=== PATIENT | female | born 1980 | race African-American/Black ===

== ENCOUNTER 2020-06-19 13:08 | Emergency (ER) | payer OTHER ==
[2020-06-19] MEDS ORDERED: SODIUM CHLORIDE 1,000 ML IV STA (13:18)
[2020-06-19] MEDS ORDERED: ACETAMINOPHEN 1000 MG/100 ML VIAL (NON FORMULARY) IVPB ONE (13:18)
--- NOTE | 2020-06-19 13:18 | PDOC ---
Rapid Medical Evaluation Time Seen by Provider: 06/19/20 13:13 Medical Evaluation: Allergies Allergy/AdvReac Type Severity Reaction Status Date / Time chlorpromazine Allergy Verified 06/19/20 13:13 [From Thorazine] haloperidol [From Haldol] Allergy Verified 06/19/20 13:13 06/19/20 13:13 I have performed a brief in-person evaluation of this patient. CC: vaginal bleeding- ? PE: protuberant abdomen. Orders: labs, urine Patient will proceed to ED for further evaluation. Discharge Disposition - Diagnosis Vaginal bleeding - Referrals - Patient Instructions - Post Discharge Activity
[2020-06-19 13:19] VITALS: BMI 26.6
[2020-06-19] MEDS ORDERED: ACETAMINOPHEN INJECTION 100 ML IVPB ONE (13:32)
--- NOTE | 2020-06-19 14:04 | PDOC ---
History of Present Illness - General Chief Complaint: Vaginal Bleeding Stated Complaint: VAGINAL BLEEDING Time Seen by Provider: 06/19/20 13:13 - History of Present Illness Initial Comments: 06/19/20 13:59 40 y/o 2 abortions believes she is hx of ectopic dx with PTSD 06/19/20 14:00 C/o vaginal bleeding and pain and protubernet abdomen she was told she was by GI doc Past History - Medical History Allergies/Adverse Reactions: Allergies Allergy/AdvReac Type Severity Reaction Status Date / Time chlorpromazine Allergy Verified 06/19/20 13:13 [From Thorazine] haloperidol [From Haldol] Allergy Verified 06/19/20 13:13 olanzapine Allergy Verified 06/19/20 13:13 Home Medications: Ambulatory Orders NK [No Known Home Medication] 06/19/20 - Reproductive History Is Patient Now?: Yes (unsure) - Psycho-Social/Smoking History Smoking History: Unknown if ever smoked - Substance Abuse Hx (Audit-C & DAST Scrn) How often the patient has a drink containing alcohol: Never Score: In Men: 4 or > Positive; In Women: 3 or > Positive: 0 Screen Result (Pos requires Nsg. Audit-10AR): Negative In the last yr the pt used illegal drug/Rx for NonMed reason: No Score: Yes response is considered Positive: 0 Screen Result (Positive result requires Nsg. DAST-10): Negative Review of Systems - Review of Systems Constitutional: No: Fever *Physical Exam - Vital Signs Last Vital Signs Temp Pulse Resp BP Pulse Ox 100 H 18 111/50 L 98 06/19/20 13:15 06/19/20 13:15 06/19/20 13:15 06/19/20 13:15 - Physical Exam General Appearance: Yes: Nourished HEENT: positive: Symmetrical Neck: positive: Supple Respiratory/Chest: negative: Respiratory Distress Gastrointestinal/Abdominal: positive: Soft. negative: Tender Musculoskeletal: positive: Normal Inspection Extremity: positive: Normal Inspection ED Treatment Course - LABORATORY CBC & Chemistry Diagram: 06/19/20 14:10 06/19/20 14:10 Medical Decision Making - Medical Decision Making 06/19/20 15:12 Patient states she is she disagrees with the results. I will send her back to Dr. Manzanares who is her estate planning attorney for further evaluation 06/19/20 15:15 Patient speech is pressured, flight of ideas. She states she basically needs a letter for further work-up that is required in order to go back to her halfway which I am happy to write her Discharge - Discharge Information Problems reviewed: Yes Clinical Impression/Diagnosis: Vaginal bleeding Condition: Stable Disposition: HOME - Admission No - Follow up/Referral Referrals: Jody Layton [Primary Care Provider] - Dio Manzanares MD [Staff Physician] - Bonita Aguirre MD [Staff Physician] - - Patient Discharge Instructions Additional Instructions: Follow-up with both your estate planning attorney as well as obstetrics and gynecology for further evaluation and treatment options. You must follow-up with both [facility] without fail within the next 1 to 2 days. Return to the emergency room for worsening symptoms. - Post Discharge Activity Work/Back to School Note: Back to Work
[2020-06-19 14:24] LABS: BASO % 0.5 % (0-2.0); EOS % 1.2 % (0-4.5); HEMATOCRIT 37.6 % (32.4-45.2); HEMOGLOBIN 12.4 GM/dL (10.7-15.3); LYMPH % 17.7 % (8-40); MCH 28.4 pg (25.7-33.7); MCHC 32.9 g/dl (32.0-36.0); MEAN CELL VOLUME 86.3 fl (80-96); MEAN PLT VOLUME 8.8 fl (7.5-11.1); MONO % 8.4 % (3.8-10.2); NEUT % 72.2 % (42.8-82.8); PLATELET COUNT 305 K/MM3 (134-434); RBC 4.35 M/mm3 (3.60-5.2); RDW 12.3 % (11.6-15.6); WHITE BLOOD COUNT 12.4 K/mm3 (4.0-10.0)
[2020-06-19 14:34] LABS: URINE APPEARANCE CLEAR; URINE BILIRUBIN NEGATIVE (NEGATIVE); URINE COLOR YELLOW; URINE GLUCOSE (UA) NEGATIVE (NEGATIVE); URINE KETONE NEGATIVE (NEGATIVE); URINE LEUK ESTERASE NEGATIVE (NEGATIVE); URINE NITRITE NEGATIVE (NEGATIVE); URINE PROTEIN NEGATIVE (NEGATIVE); URINE UROBILINOGEN 0.2 mg/dL (0.2-1.0)
[2020-06-19 14:36] LABS: INR 1.13 (0.83-1.09); PROTHROMBIN TIME (PATIENT) 13.4 SEC (9.7-13.0)
[2020-06-19 14:38] LABS: ACTIVATED PTT 32.4 SECONDS (25.2-36.5)
[2020-06-19 14:45] LABS: ALBUMIN 3.9 g/dl (3.4-5.0); ALK PHOS 77 U/L (45-117); ANION GAP 9 MMOL/L (8-16); BILIRUBIN,TOTAL 0.2 mg/dL (0.2-1); BLOOD UREA NITROGEN 25.3 mg/dL (7-18); CALCIUM 9.3 mg/dL (8.5-10.1); CHLORIDE 104 mmol/L (98-107); CO2 27 mmol/L (21-32); COCAINE, UR NEGATIVE ng/ml (CUTOFF=300); CREATININE 0.8 mg/dL (0.55-1.3); GLUCOSE,RANDOM 103 mg/dL (74-106); LIPASE 246 U/L (73-393); METHADONE, UR NEGATIVE ng/ml (CUTOFF=300); OPIATES, URI NEGATIVE ng/ml (CUTOFF=300); PHENCYCLIDINE,URINE NEGATIVE ng/ml (CUTOFF=25); POTASSIUM 4.2 mmol/L (3.5-5.1); SGOT/AST 25 U/L (15-37); SGPT/ALT 37 U/L (13-61); SODIUM 140 mmol/L (136-145); TOT PROT 8.5 g/dl (6.4-8.2); URINE AMPHETAMINES NEGATIVE ng/ml (CUTOFF=500); URINE BARBITURATES NEGATIVE ng/ml (CUTOFF=200); URINE BENZODIAZEPINES NEGATIVE ng/ml (CUTOFF=200)
[2020-06-19 15:27] VITALS: BP 118/54; PULSE 86; TEMP 98
== END 2020-06-19 15:27 | disposition home or self-care (01) ==
LOC: JER 13:08
PROC: 3E0333Z Introduction of Anti-inflammatory into Peripheral Vein, Percutaneous Approach (ICD-10-PCS; principal; 2020-06-19)
PROC: 3E0337Z Introduction of Electrolytic and Water Balance Substance into Peripheral Vein, Percutaneous Approach (ICD-10-PCS; 2020-06-19)
DX: N93.9 Abnormal uterine and vaginal bleeding, unspecified (principal)
CPT/HCPCS: 36415; 80053; 80307; 81003; 83690; 84443; 84702; 84703; 85025; 85610; 85730; 87086; 99284-25; J0131

== ENCOUNTER 2020-07-11 14:37 | Emergency (ER) | payer OTHER ==
[2020-07-11] MEDS ORDERED: ACETAMINOPHEN 500 MG TABLET (FP) PO ONE (14:50)
--- NOTE | 2020-07-11 14:50 | PDOC ---
Rapid Medical Evaluation Time Seen by Provider: 07/11/20 14:47 Medical Evaluation: Allergies Allergy/AdvReac Type Severity Reaction Status Date / Time chlorpromazine Allergy Verified 06/19/20 13:13 [From Thorazine] haloperidol [From Haldol] Allergy Verified 06/19/20 13:13 olanzapine Allergy Verified 06/19/20 13:13 07/11/20 14:47 I have performed a brief in-person evaluation of this patient. CC: vaginal pain with thick white discharge PE: deferred Orders: urine, tylenol Patient will proceed to ED for further evaluation. Discharge Disposition - Diagnosis Vaginal pain - Referrals - Patient Instructions - Post Discharge Activity
[2020-07-11 14:52] VITALS: BP 119/70; PULSE 68; TEMP 96.7; BMI 27.6
[2020-07-11] MEDS ORDERED: ACETAMINOPHEN 500 MG TABLET (FP) ONE (15:47)
--- NOTE | 2020-07-11 16:22 | PDOC ---
History of Present Illness - General Chief Complaint: Vaginal Sxs Stated Complaint: VAGINAL PAIN Time Seen by Provider: 07/11/20 14:47 History Source: Patient Exam Limitations: No Limitations - History of Present Illness Initial Comments: 07/11/20 16:20 40-year-old female history of "psych issues" currently follows up with a psychiatrist denies taking any medication, , 2 termination, lives in a woman's custodial. Presents requesting test. Believes she is , evaluated here June 19 for "vaginal issues". However patient denies being sexually active, reports minimal vaginal discomfort. Denies vaginal itching, vaginal discharge, vaginal bleeding. LMP 1 month ago. Upon speaking with patient she is fixated on "linea nigra" is evidence that she is . Denies cough, shortness of breath, fever, chills, back pain, urinary complaint or any other symptoms. Reports she has an appointment scheduled with GI July 17, 2020. Missed an appointment with OB June 27, currently working on rescheduling. ROS: as above PE: GENERAL: well-appearing, NAD HEAD: NCAT EYES: Pupils equal, round and reactive to light, sclera anicteric, conjunctiva clear ENT: pharynx: no erythema, no exudate, uvula midline NECK: supple CHEST: nontender RESP: clear, no w/r/r CARDIO: rrr, no m/g/r ABD: +BS, soft, nontender, protuberant pelvic: declines at this time BACK: no midline spinal ttp, no CVAT EXTREMITIES: Normal range of motion, no edema NEUROLOGICAL: Normal speech, normal gait SKIN: Warm, Dry Is this a multiple visit Asthma Patient?: No Past History - Medical History Allergies/Adverse Reactions: Allergies Allergy/AdvReac Type Severity Reaction Status Date / Time chlorpromazine Allergy Verified 07/11/20 14:52 [From Thorazine] haloperidol [From Haldol] Allergy Verified 07/11/20 14:52 olanzapine Allergy Verified 07/11/20 14:52 Home Medications: Ambulatory Orders Cephalexin Monohydrate [Keflex -] 500 mg PO BID 10 Days #20 capsule 07/11/20 COPD: No Psychiatric Problems: Yes - Reproductive History Is Patient Now?: No (#): 8 Para: 6 Spontaneous : 2 - Immunization History Immunization Up to Date: No - Psycho-Social/Smoking History Smoking History: Never smoked Have you smoked in the past 12 months: No Information on smoking cessation initiated: No - Substance Abuse Hx (Audit-C & DAST Scrn) How often the patient has a drink containing alcohol: Never Score: In Men: 4 or > Positive; In Women: 3 or > Positive: 0 Screen Result (Pos requires Nsg. Audit-10AR): Negative In the last yr the pt used illegal drug/Rx for NonMed reason: No Score: Yes response is considered Positive: 0 Screen Result (Positive result requires Nsg. DAST-10): Negative *Physical Exam - Vital Signs Last Vital Signs Temp Pulse Resp BP Pulse Ox 96.7 F L 68 18 119/70 100 07/11/20 14:50 07/11/20 14:50 07/11/20 14:50 07/11/20 14:50 07/11/20 14:50 ED Treatment Course - Medications Given in the ED: ED Medications Discontinued Medications Generic Name Dose Route Start Last Admin Trade Name Didi PRN Reason Stop Dose Admin Acetaminophen 975 mg 07/11/20 14:50 07/11/20 15:48 Tylenol - PO 07/11/20 14:51 975 mg ONCE ONE Administration Medical Decision Making - Medical Decision Making 07/11/20 16:22 40-year-old female history of "psych issues" currently follows up with a psychiatrist denies taking any medication, , 2 termination, lives in a woman's custodial. Presents requesting test. Believes she is , evaluated here June 19 for "vaginal issues". However patient denies being sexually active, reports minimal vaginal discomfort. Denies vaginal itching, vaginal discharge, vaginal bleeding. LMP 1 month ago. Upon speaking with patient she is fixated on "linea nigra" is evidence that she is . Denies cough, shortness of breath, fever, chills, back pain, urinary complaint or any other symptoms. Reports she has an appointment scheduled with GI July 17, 2020. Missed an appointment with OB June 27, currently working on rescheduling. 07/11/20 17:40 Discussed UA results with patient, will treat for mild UTI Also discussed negative test with patient who feels our results are incorrect Copy of urine and urine results provided to patient Note to return to custodial also provided Stable for discharge Discharge - Discharge Information Problems reviewed: Yes Clinical Impression/Diagnosis: Urinary tract infection Qualifiers: Urinary tract infection type: acute cystitis Hematuria presence: without hematuria Qualified Code(s): N30.00 - Acute cystitis without hematuria Condition: Stable Disposition: HOME - Admission No - Follow up/Referral Referrals: Jody Layton [Primary Care Provider] - - Patient Discharge Instructions Additional Instructions: Take cephalexin 500 mg twice a day for 10 days Follow-up with [facility] as soon as you are able to Keep your appointment with GI scheduled for July 17, 2020 - Post Discharge Activity
[2020-07-11 16:48] LABS: HCG,QUALITATIVE URINE Negative
[2020-07-11 17:33] LABS: EPI CELLS >36 /uL (0-25.1); HYALINE CASTS 1 /uL (0-3.1); URINE APPEARANCE CLEAR; URINE BACTERIA 2865 /uL (0-1359); URINE BILIRUBIN NEGATIVE (NEGATIVE); URINE COLOR YELLOW; URINE GLUCOSE (UA) NEGATIVE (NEGATIVE); URINE KETONE NEGATIVE (NEGATIVE); URINE LEUK ESTERASE TRACE (NEGATIVE); URINE NITRITE NEGATIVE (NEGATIVE); URINE PROTEIN NEGATIVE (NEGATIVE); URINE RBC 7 /uL (0-23.9); URINE UROBILINOGEN 0.2 mg/dL (0.2-1.0); URINE WBC 183 /uL (0-25.8)
--- OUTSIDE RECORDS SUMMARY | 2020-07-11 19:47 | XMS ---
:1980 Author Organization [facility] Care Team Providers Name Role Phone BEN GOLD Unavailable Unavailable MD Chaka Gentile MD Unavailable [phone] MD Chaka Gentile MD Unavailable [phone] JASON WELLER Unavailable Unavailable Ringstad, Ila Unavailable Unavailable Ringstad, Ila Unavailable Unavailable Ringstad, Ila Unavailable Unavailable Ringstad, Ila Unavailable Unavailable Ringstad, Ila Unavailable Unavailable Ringstad, Ila Unavailable Unavailable Ringstad, Ila Unavailable Unavailable Ringstad, Ila Unavailable Unavailable Ringstad, Ila Unavailable Unavailable Ringstad, Ila Unavailable Unavailable Ringstad, Ila Unavailable Unavailable ED STAFF PHYSICIANGILBERT Unavailable Unavailable Agnes Shirley Unavailable [email or web address] Agnes Shirley Unavailable [email or web address] Agnes Shirley Unavailable [email or web address] Agnes Shirley Unavailable [email or web address] NIALL DHALIWAL Unavailable Unavailable ROBE Busby Unavailable Unavailable JIMMY ARRIOLA Unavailable Unavailable Robbie Knox Unavailable [phone] Robbie Knox Unavailable + Aszalos, Jody Nereida Unavailable Unavailable Aszalos, Nereida Unavailable Unavailable Aszalos, Nereida Unavailable Unavailable Aszalos, Nereida Unavailable Unavailable Aszalos, Nereida Unavailable Unavailable Aszalos, Nereida Unavailable Unavailable Aszalos, Nereida Unavailable Unavailable Aszalos, Nereida Unavailable Unavailable Aszalos, Nereida Unavailable Unavailable Darer Unavailable [phone] Nlam Unavailable [phone] Nlam Unavailable + BETSY MORALES Unavailable Unavailable [facility] Unavailable Unavailable Woodson Unavailable Unavailable Woodson Unavailable Unavailable Woodson Unavailable Unavailable Woodson Unavailable Unavailable Woodson Unavailable Unavailable Woodson Unavailable Unavailable Woodson Unavailable Unavailable Woodson Unavailable Unavailable Woodson Unavailable Unavailable Woodson Unavailable Unavailable [facility] Unavailable Unavailable Coloka-Kump, DO Unavailable Unavailable Coloka-Kump, DO Unavailable Unavailable Coloka-Kump, DO Unavailable Unavailable Coloka-Kump, DO Unavailable Unavailable Coloka-Kump, DO Unavailable Unavailable Coloka-Kump, DO Unavailable Unavailable Coloka-Kump, DO Unavailable Unavailable Coloka-Kump, DO Unavailable Unavailable Coloka-Kump, DO Unavailable Unavailable Coloka-Kump, DO Unavailable Unavailable Coloka-Kump, DO Unavailable Unavailable Coloka-Kump, DO Unavailable Unavailable Coloka-Kump, DO Unavailable Unavailable Coloka-Kump, DO Unavailable Unavailable Coloka-Kump, DO Unavailable Unavailable Coloka-Kump, DO Unavailable Unavailable Coloka-Kump, DO Unavailable Unavailable MD VENU Unavailable Unavailable Aszalos, Nereida Unavailable Unavailable Aszalos, Nereida Unavailable Unavailable Aszalos, Nereida Unavailable Unavailable Aszalos, Nereida Unavailable Unavailable Aszalos, Nereida Unavailable Unavailable Aszalos, Nereida Unavailable Unavailable Aszalos, Nereida Unavailable Unavailable Aszalos, Nereida Unavailable Unavailable Aszalos, Nereida Unavailable Unavailable Cass ALEMAN MD Unavailable [phone] Cass ALEMAN MD Unavailable [phone] Saadia Unavailable [phone] Saadia Unavailable [phone] Safo-Paulie Unavailable [phone] Safo-Paulie Unavailable [phone] Kathy ALEMAN MD Unavailable [phone] Kathy ALEMAN MD Unavailable [phone] Ringstad Unavailable Unavailable Ringstad Unavailable Unavailable Ringstad Unavailable Unavailable Ringstad Unavailable Unavailable Ringstad Unavailable Unavailable Ringstad Unavailable Unavailable Ringstad Unavailable Unavailable Ringstad Unavailable Unavailable Ringstad Unavailable Unavailable Ringstad Unavailable Unavailable Ringstad Unavailable Unavailable SHARAN STAHL Unavailable Unavailable LITZY SAMAYOA Unavailable Unavailable LANCELIXNAE Unavailable Unavailable KAI, SHERRIE Unavailable Unavailable Sicular Unavailable Unavailable ARPITA GOMEZ Unavailable Unavailable Amarga Unavailable Unavailable Amarga Unavailable Unavailable Jackson Unavailable [phone] Jackson Unavailable [phone] CHRISTY Busby Unavailable Unavailable Carol Villalba MD Unavailable Unavailable Carol Villalba MD Unavailable Unavailable Carol Villalba MD Unavailable Unavailable Carol Villalba MD Unavailable Unavailable Carol Villalba MD Unavailable Unavailable Carol Villalba MD Unavailable Unavailable Carol Villalba MD Unavailable Unavailable Carol Villalba MD Unavailable Unavailable Carol Villalba MD Unavailable Unavailable Carol Villalba MD Unavailable Unavailable Carol Villalba MD Unavailable Unavailable Carol Villalba MD Unavailable Unavailable Carol Villalba MD Unavailable Unavailable Carol Villalba MD Unavailable Unavailable Carol Villalba MD Unavailable Unavailable Veselinovic Unavailable [phone] Rodrigoovic Unavailable [phone] Chris Unavailable [phone] Ralph Unavailable [phone] JESSICA ROJASA Unavailable Unavailable DAVION Liu Unavailable Unavailable JEFFREY HERNANDEZ Unavailable Unavailable MD ASAF Unavailable Unavailable Ekechukwu Unavailable [phone] Ekechukwu Unavailable [phone] Brittani ALEMAN MD Unavailable [phone] Brittani ALEMAN MD Unavailable [phone] KIRTI ARCHER Unavailable Unavailable EMERGENCY SERVICE, X Unavailable Unavailable RAE KRISHNAMURTHY Unavailable Unavailable Bottstefani Unavailable [phone] Bottrell Unavailable [phone] SAFO-PAULIE Unavailable Unavailable Re-disclosure Warning The records that you are about to access may contain information from federally- assisted alcohol or drug abuse programs. If such information is present, then the following federally mandated warning applies: This information has been disclosed to you from records protected by federal confidentiality rules (42 CFR part 2). The federal rules prohibit you from making any further disclosure of this information unless further disclosure is expressly permitted by the written consent of the person to whom it pertains or as otherwise permitted by 42 CFR part 2. A general authorization for the release of medical or other information is NOT sufficient for this purpose. The Federal rules restrict any use of the information to criminally investigate or prosecute any alcohol or drug abuse patient.The records that you are about to access may contain highly sensitive health information, the redisclosure of which is protected by Article 27-F of the [facility] Public Health law. If you continue you may haveaccess to information: Regarding HIV / AIDS; Provided by facilities licensed or operated by the [facility] Office of Mental Health; or Provided by the [facility] Office for People With Developmental Disabilities. If such information is present, then the following [facility] mandated warning applies: This information has been disclosed to you from confidential records which are protected by state law. State law prohibits you from making any further disclosure of this information without the specific written consent of the person to whom it pertains, or as otherwise permitted by law. Any unauthorized further disclosure in violation of state law may result in a fine or retirement sentence or both. A general authorization for the release of medical or other information is NOT sufficient authorization for further disclosure. Allergies and Adverse Reactions Type Description Substance Reaction Status Data Source(s ) Drug allergy Haldol Haldol Unknown Active [facility] Drug allergy Fluphenazine Fluphenazine [facility] Propensity to Propensity to Propensity to NEXTG EN ([facility] adverse adverse reactions adverse [facility] Medical reactions (disorder) reactions Center) (disorder) (disorder) Drug allergy Risperdal Risperdal Unknown Active [facility] Food allergy SHELLFISH Synonym(s): Localized Active [facility] swelling of skin Drug allergy Thorazine Thorazine Weal Active [facility] Family History Family Member Family Member Family Member Date of Description Data Source(s) Name Gender Status Status Unknown Male Problem 11/03/2019 [facility] 12:00:00 AM Manuel Medic al EST Center) Encounters Encounter Providers Location Date Indications Data Source(s ) Outpatient 06/28/2020 [facility] 01:26:00 Medical Center PM EDT Outpatient 06/28/2020 [facility] 12:00:00 Medical Center AM EDT Unlisted 06/13/2020 [facility] (Ment al evaluation and 05:00:00 Health management PM EDT [facility]) Outpatient Attender: JEANNETTE Rudolph 06/07/2020 [facility] tim MACHADO 04:22:00 Medical Rashmi LEIdmitter: PM EDT JEANNETTE Busby Attender: [facility] 06/07/2020 [facility] ( [facility] 04[facility]22[facility] Manuel Medic al PM EDT - Center) 06/07/2020 04:22:00 PM EDT Unlisted 05/30/2020 [facility] (Ment al evaluation and 04:00:00 Health management AM EDT [facility]) Outpatient Attender: JEANNETTE Rudolph 05/23/2020 [facility] 11:56:00 Medical Rashmi r KAdmitter: AM EDT JEANNETTE MACHADO KReferrer: JEANNETTE Busby [facility] 11:56:00 Manuel Medic al AM EDT - Center) 05/23/2020 11:56:00 AM EDT Outpatient Attender: MHAW9 05/13/2020 I ([facility] 12:30:58 Health Care EDT Collaborative) Patient admitted. Outpatient Attender: Edda Rudolph 05/12/2020 [facility] 11:50:00 AM EDT Medical Center DOAdmitter: Edda Ames DOReferrer: Edda Ames DO Attender: [facility] 05/12/2020 YEIMY ( [facility] 11:50:00 AM EDT Gamaliel Jackson MD 05/12/2020 Medical 11:50:00 AM EDT Center) Outpatient 05/12/2020 [facility] 10:59:00 AM EDT Medical C enter Outpatient 05/12/2020 [facility] 12:00:00 AM EDT Medical C enter Attender: MD Mabry [facility] 05/10/2020 [place] ([facility] 02:42:00 PM EDT - Manuel 05/10/2020 Medical 02:42:00 PM EDT Center) Outpatient Attender: JEANNETTE Rudolph 05/03/2020 [facility] 03:34:00 PM EDT Medical Center KAdmitter: JEANNETTE Busby Attender: [facility] 05/03/2020 [facility]EXT[facility] ( [facility] 03:34:00 PM EDT - Jagjit s 05/03/2020 Medical 03:34:00 PM EDT Center) Outpatient 05/01/2020 [facility] 10:11:00 AM EDT Medical C enter Outpatient 05/01/2020 [facility] 12:00:00 AM EDT Medical C enter Attender: [facility] 04/19/2020 CHOLO N ([facility] [place] 05:11:00 PM EDT - Manuel 04/19/2020 Medical 05:11:00 PM EDT Center) Outpatient 04/18/2020 [facility] 03:17:00 PM EDT Medical C enter Outpatient 04/18/2020 [facility] 12:00:00 AM EDT Medical C enter Attender: [facility] 04/17/2020 [facility] ([facility] 10:30:00 AM EDT - Manuel 04/17/2020 Medical 10:30:00 AM EDT Center) Outpatient Attender: JEANNETTE Rudolph 04/05/2020 [facility] Yunior MACHADO 02:16:00 PM EDT Medical Center KAdmitter: JEANNETTE Busby Attender: [facility] 04/05/2020 [facility] ( [facility] 02:16:00 PM EDT - Jagjit s 04/05/2020 Medical 02:16:00 PM EDT Center) Attender: [facility] 02/17/2020 CHOLO Alfaro ([facility] ALE[facility] [place] 09:35:00 AM EDT - Manuel 02/17/2020 Medical 09:35:00 AM EDT Center) Outpatient 02/02/2020 [facility] 03:25:00 PM EDT Medical C enter Outpatient Attender: AGNES Rudolph 02/02/2020 [facility] DAVION ALARCON 10:58:00 AM EDT Medic al Center MAdmitter: AGNES ALARCON MReferrer: AGNES Liu OutpatientOFFICE/O Attender: Agnes 02/02/2020 [facility] [place] 10:58:00 AM EDT - J osep EST 02/02/2020 Medical 10:58:00 AM EDT Center) Outpatient 02/02/2020 [facility] 12:00:00 AM EDT Medical C [facility] 02[facility]01/2020 NEXTGE N ([facility] 10:35:00 AM EDT - [facility] 02/01/2020 Medical 10:35:00 AM EDT Center) Outpatient 01/28/2020 [facility] 01:17:00 PM EDT Medical C enter Attender: [facility] 01/28/2020 MAXWELL EPPS ([facility] 09:54:00 AM EDT - [facility] 01/28/2020 Medical 09:54:00 AM EDT Center) Outpatient 01/28/2020 [facility] 12:00:00 AM EDT Medical C enter Outpatient Attender: Emilia Rudolph 01/27/2020 [facility] VelezAdmitter: 01:38:00 PM EDT Medic al Center Emilia WoodsonReferrer: Emilia Woodson OutpatientOFFICE/O Attender: [facility] 01/27/2020 [facility] ([facility] VISIT, [facility] 01:38:00 PM EDT - J osep EST 01/27/2020 Medical 01:38:00 PM EDT Center) Outpatient 01/27/2020 [facility] 01:32:00 PM EDT Medical C enter Outpatient 01/27/2020 [facility] 12:00:00 AM EDT Medical C enter Outpatient 01/24/2020 [facility] 02:32:00 PM EDT Medical C enter Outpatient 01/24/2020 [facility] 12:00:00 AM EDT Medical C enter Outpatient Attender: MHAW9 01/20/2020 [facility] ([facility] 11:58:03 AM EDT [facility]) Patient admitted. Outpatient Attender: CNR9 [facility] 01/20/2020 11:58:00 AM [facility]SI ([facility] EDT Collaborative) Patient admitted. Emergency Attender: SUZI 01/18/2020 01:32:00 ABDOMINA LPAIN [facility] JAYAttender: PM EDT Health Care EMERGENCY SERVICE, Corpor ation XAdmitter: SUZIKIRTI ABDOMINALPAIN Outpatient 01/13/2020 [facility] 04:12:00 PM EDT Medical C enter Outpatient Attender: Emilia Rudolph 01/13/2020 [facility] VelezAdmitter: 02:32:00 PM EDT Medic al Center Emilia WoodsonReferrer: Emilia Woodson OutpatientOFFICE/OU Attender: [facility] 01/13/2020 [facility] ([facility], [facility] 02:32:00 PM EDT [facility] 01/13/2020 [place]) 02:32:00 PM EDT Outpatient 01/13/2020 [facility] 11:46:00 AM EDT Medical C enter Outpatient 01/13/2020 [facility] 12:00:00 AM EDT Medical C enter Outpatient 01/11/2020 [facility] 12:37:00 PM EDT Medical C enter Outpatient 01/11/2020 [facility] 12:00:00 AM EDT Medical C enter Attender: [facility] 01/04/2020 [facility] ([facility] 10:43:00 AM EDT [facility] 01/04/2020 [place]) 10:43:00 AM EDT Outpatient 01/03/2020 [facility] 04:21:00 PM EDT Medical C enter Outpatient 01/03/2020 [facility] 03:58:00 PM EDT Medical C enter Attender: Jaymie [facility] 01/03/2020 NEXT EN ([facility] 02:30:00 PM EDT [facility] 01/03/2020 [place]) 02:30:00 PM EDT Outpatient Attender: Emilia Rudolph 01/03/2020 [facility] VelezAdmitter: 01:09:00 PM EDT Medic al Center Emilia WoodsonReferrer: Emilia Woodson OutpatientOFFICE/OU Attender: [facility] 01/03/2020 [facility] ([facility] TPATIENT VISIT, EST [facility] Center 01:09:00 PM EDT [facility] 01/03/2020 [place]) 01:09:00 PM EDT Outpatient 01/03/2020 [facility] 12:00:00 AM EDT Medical C enter Attender: [facility] 01/01/2020 NEXTG EN ([facility] 09:33:00 AM EDT [facility] 01/01/2020 [place]) 09:33:00 AM EDT Outpatient 12/31/2019 [facility] 05:45:00 PM EDT Medical C enter Outpatient Attender: MHAW9 12/31/2019 [facility] ([facility] 05:41:16 AM EDT [facility]) Patient admitted. Outpatient 12/31/2019 [facility] 12:00:00 AM EDT Medical C enter Outpatient Attender: Edda Rudolph 12/30/2019 [facility] [place] 11:13:00 AM EDT Medical Center DOAdmitter: Edda Ames DOReferrer: Edda Cortez-Raphael DO OutpatientOFFICE/O Attender: [facility] 12/30/2019 [facility] 11:13:00 AM EDT [facility] EST 12/30/2019 Center) 11:13:00 AM EDT Outpatient 12/30/2019 [facility] 11:09:00 AM EDT Medical C enter Outpatient 12/30/2019 [facility] 12:00:00 AM EDT Medical C enter Outpatient Attender: Edda Rudolph 12/22/2019 [facility] [place] 11:16:00 AM EDT [facility] Center DOAdmitter: Edda Ames DOReferrer: Edda Ames DO OutpatientOFFICE/O Attender: [facility] 12/22/2019 NEX TGEN ([facility] VISIT, [facility] 11:16:00 AM EDT [facility] EST 12/22/2019 Center) 11:16:00 AM EDT Outpatient 12/22/2019 [facility] 11:00:00 AM EDT Medical C enter Outpatient 12/22/2019 [facility] 12:00:00 AM EDT Medical C enter Attender: [facility] 12/20/2019 [facility] ([facility] 11:45:00 [facility] [place] 12/20/2019 Center) 11:45:00 AM EDT Outpatient 12/09/2019 [facility] 01:45:00 PM EST Medical C enter Outpatient 12/09/2019 [facility] 12:00:00 AM EST Medical C enter [facility] 12[facility]2019 [facility] N ([facility] 11:39:00 AM [facility] 12/03/2019 Center) 11:39:00 AM EST Attender: [facility] 11/29/2019 [facility] 10:46:00 AM [facility] 11/29/2019 [place]) 10:46:00 AM EST Attender: [facility] 11/24/2019 [facility] ( [facility] 10:55:00 AM [facility] 11/24/2019 [place]) 10:55:00 AM EST [facility]: [facility] 11/22/2019 [facility] ([facility] 07:22:00 PM [facility] 11/22/2019 [place]) 07:22:00 PM EST Attender: [facility] 11/16/2019 [facility] ([facility] 02:17:00 PM [facility] 11/16/2019 [place]) 02:17:00 PM EST Outpatient Attender: 11/12/2019 [facility] vasiliy KRISHNAMURTHY, 06:00:00 AM [facility] Health [place] re GARYAdmitter: RAE Carter Attender: Leydi [facility] 11/09/2019 [facility] ( [facility] 12:21:00 PM [facility] - 11/09/2019 [place]) 12:21:00 PM EST Outpatient 11/08/2019 [facility] 05:27:00 PM EST Medical C enter Outpatient Attender: JASON Rudolph 11/08/2019 [place] ANTONIO 03:17:00 PM EST Medical C enter HINYAdmitter: JASON GOMEZReferrer: JASON GOMEZ OutpatientOFFICE/OUT Attender: José Antonio [facility] 11/08/2019 [facility] ([facility] VISIT, [facility] 03:17:00 PM [facility] - 11/08/2019 Center) 03:17:00 PM EST Outpatient 11/08/2019 [facility] 12:00:00 AM EST Medical C enter Outpatient Attender: Emilai Rudolph 11/03/2019 [facility] Yunior ephs VelezAdmitter: 01:15:00 PM EST Medic al Center Emilia VacaezReferrer: Emilia Woodson OutpatientWell Attender: MD Slaughter 11/03/2019 YEIMY ([facility] Kelsey, Merissa Odell MD [facility] 01:15:00 PM [facility]40-64[facility] Center - 11/03/2019 Center ) 01:15:00 PM EST Outpatient 11/03/2019 [facility] 10:20:00 AM EST Medical C enter Outpatient 11/03/2019 [facility] 12:00:00 AM EST Medical C enter Attender: MD Slaughter 11/02/2019 [facility] (Matt Odell MD [facility] 02:40:00 PM [facility] - 11/02/2019 Center) 02:40:00 PM EST Outpatient 10/27/2019 [facility] 02:10:00 PM EST Medical C enter Outpatient 10/27/2019 [facility] 12:00:00 AM EST Medical C enter Attender: MD Slaughter 10/26/2019 [facility] (Matt Odell MD [facility] 10:13:00 AM [facility] - 10/26/2019 Center) 10:13:00 AM EST Attender: Hilario Slaughter 10/25/2019 [facility] ( [facility] 02:30:00 PM [facility] - 10/25/2019 Center) 02:30:00 PM EST Attender: Family 10/22/2019 [facility] ([facility] 11:04:00 AM [facility] - 10/22/2019 Center) 11:04:00 AM EST Outpatient Attender: Emilia Rudolph 10/21/2019 [facility] VelezAdmitter: 02:59:00 PM EST Medic al Center Emilia WoodsonReferrer: Emilia Woodson OutpatientOFFICE/OUT Attender: Danial Family 10/21/2019 Angelina LUNSFORD ([facility] PATIENT VISIT, EST [facility] 02:59:00 PM EST [facility] 10/21[facility]2019 Center) 02:59:00 PM EST Outpatient 10/21/2019 [facility] 02:53:00 PM EST Medical C enter Outpatient 10/21/2019 [facility] 12:00:00 AM EST Medical C enter Outpatient Attender: JASON Rudolph 10/18/2019 [facility] Katharina drake ALVAREZ 03:18:00 PM EST Medical C enter JOHNNYAdmitter: JASON GOMEZReferrer: JASON GOMEZ OutpatientOFFICE/OUT Attender: MD Slaughter 10/18/2019 MIRELLA OREILLY ([facility] PATIENT VISIT, [facility] Chaka Gentile [facility] 03:18:00 PM [facility] - 10/18/2019 Center) 03:18:00 PM EST Outpatient Attender: MARY H 10/18/2019 [facility] JEFFREY 01:07:00 PM [facility] Center DANUTAAdmitter: MARY PRZEDOMINIQUE DANUTAReferrer: [facility] Outpatient 10/18/2019 [facility] 12:13:00 PM EST Medical C enter Outpatient 10/18/2019 [facility] 12:00:00 AM EST Medical C enter Outpatient 10/16/2019 [facility] 06:17:00 PM EST Medical C enter Outpatient 10/16/2019 [facility] 12:00:00 AM EST Medical C enter Attender: José Antonio [facility] 10/12/2019 [facility] ( [facility] 10:15:00 AM [facility] - 10/12/2019 [place]) 10:15:00 AM EST Outpatient Attender: Jody Rudolph 10/11/2019 [facility] Barbaradmitter: 03:46:00 PM EST [facility] Jody WinchesterlosReferrer: Jody Layton OutpatientOFFICE/OUT Attender: José Antonio [facility] 10/11/2019 [facility] ([facility] PATIENT VISIT, [facility] 03:46:00 PM [facility] - 10/11/2019 [place]) 03:46:00 PM EST Outpatient 10/11/2019 [facility] 03:44:00 PM EST Medical C enter Outpatient 10/11/2019 [facility] 12:00:00 AM EST Medical C enter Attender: José Antonio [facility] 10/07/2019 [facility] ( [facility] 02:08:00 PM [facility] - 10/07/2019 Center) 02:08:00 PM EST Outpatient Attender: JIMMY Rudolph 10/02/2019 [facility] 03:00:00 PM EST Medical C enter MINALAdmitter: JIMMY MANINDER MINALReferrer: JIMMY GUIDOAL OutpatientOFFICE/OUT Attender: José Antonio Family 10/02/2019 YEIMY ([facility] PATIENT VISIT, [facility] 03:00:00 PM [facility] - 10/02/2019 Center) 03:00:00 PM EST Outpatient 10/02/2019 [facility] 11:49:00 AM EST Medical C enter Outpatient 10/02/2019 [facility] 12:00:00 AM EST Medical C enter Outpatient 10/01/2019 [facility] 11:28:00 AM EST Medical C enter Outpatient 10/01/2019 [facility] 12:00:00 AM EST Medical C enter Outpatient Attender: 09/27/2019 [facility] [place] ANDREW, 02:57:00 PM [facility] Corporati dwight GarciaAttender: CLEMENTE GOLDdmitter: BETSY MORALES Emergency Attender: LITZY 09/24/2019 BACK PAIN YEAST [facility], 08:48:00 AM EST INFECTION Health Ca re TEENAAttender: Corporatio n EMERGENCY SERVICE, XAdmitter: LITZY [facility] MARYVALELITZY BACK PAIN YEAST INFECTION Outpatient Attender: KAI, 09/16/2019 09:34:00 [facility] AM [facility]OPHERAdmitter: Angelica QUINN [facility] Emergency Attender: SAQIB 09/10/2019 SORE THROAT [facility] RICHARDAttender: 08:24:00 AM EST a [facility] Care EMERGENCY SERVICE, Corpor ation XAdmitter: NAE CERRATO SORE THROAT Emergency Attender: SUZI 09/03/2019 REACTION TO FLU W [facility] EBENender: 09:03:00 AM EST SHOT [facility] Care EMERGENCY SERVICE, Corpor ation XAdmitter: KIRTI ARCHER REACTION TO FLU SHOT Unlisted evaluation 09/02/2019 NETS ART (Mental and management 10:00:00 PM EST Healt [facility] ) Emergency Attender: 08/20/2019 CONGESTION [facility] vasiliy STAHL, 08:59:00 AM [facility] Health C are ROBERTAdmitter: Corporati on SHARAN STAHL CONGESTION Unlisted 08/12/2019 NETSMART (Ment al evaluation and 05:00:00 AM EDT - [facility] management service 09/03/2019 of Rambo jett) 08:00:00 PM EST Attender: [facility] 08/02/2019 NEXT N ([facility] 04:55:00 PM EDT - [facility] 08/02/2019 Center) 04:55:00 PM EDT Emergency Admitter: H 07/31/2019 [facility] ROBE HIDALGO 02:11:00 PM EDT - edical Center K 07/31/2019 04:51:00 PM EDT Patient discharged. 07/31/2019 12:00:00 [facility] EDT Medical Center Attender: [facility] 06/26/2019 02:17:00 NEXTGEN ([facility] PM EDT - 06/26/2019 [facility] Medical 02:17:00 PM EDT Center) [facility] 10:16[facility]00 [facility] AM EDT - 06/24/2019 [facility] Medical 10:16:00 AM EDT Center) Emergency Attender: GILBERT ED H 06/23/2019 05:03:00 [facility] STAFF PM EDT - 06/23/2019 Medic al Center PHYSICIANAdmitter: 10:16:00 PM EDT [facility] ED STAFF PHYSICIAN Patient discharged. Attender: [facility] 06/12/2019 08:43:00 NEXTGEN ([facility] AM EDT - 06/12/2019 [facility] Medical 08:43:00 AM EDT Center) Emergency H 06/04/2019 09:58:00 [facility] EDT - 06/04/2019 Medic al Center 06:32:00 PM EDT Patient discharged. Attender: Hilario Mental 04/07/2019 NEXTGEN ( [facility] 02:45:00 PM EDT [facility] - 04/07/2019 Medical 02:45:00 PM EDT Center) OutpatientOFFICE/OU Attender: Jean Mental 03/26/2019 YEIMY ([facility], EST [facility] 03:52:00 PM EDT [facility] - 03/26/2019 Medical 03:52:00 PM EDT Center) Individual Attender: Hilario Mental 03/11/2019 NEXTGEN ( [facility] Psychotherapy ([facility] 03:18:00 PM EDT [facility] Clinic - 03/11/2019 Medical 03:18:00 PM EDT Center) Outpatient 03/05/2019 [facility] 12:36:00 PM EDT Medical C enter Outpatient Attender: H 03/05/2019 [facility] Ila 10:44:00 AM EDT Medical C enter SuritaMemodmitter: Ila Shahiderrer: Ila Neal OutpatientOFFICE/OU Attender: Ava Slaughter 03/05/2019 [facility] ([facility], [facility] 10:44:00 AM EDT [facility] - 03/05/2019 Medical 10:44:00 AM EDT Center) Outpatient 03/05/2019 [facility] 12:00:00 AM EDT Medical C enter Individual Attender: Hilario Mental 03/03/2019 [facility] ( [facility] Psychotherapy ([address] [place] [address] 02:07:00 PM EDT [facility] Clinic - 03/03/2019 Medical 02:07:00 PM EDT Center) Outpatient Attender: ARPITA Rudolph 02/18/2019 [facility] hilario JACOBAttender: 10:05:00 AM EDT Medic al Center ADA ARVIZUdmitter: ARPITA GOMEZ Attender: Ada Mental 02/18/2019 [facility] ([facility] 10:05:00 AM EDT [facility] - 02/18/2019 Medical 10:05:00 AM EDT Center) 02/18/2019 [facility] 12:00:00 AM EDT Medical C enter Inpatient Attender: LALO BARON-2S 01/08/2019 [facility] SASSAdmitter: ORA 09:43:00 AM EDT gagan ASAF - 02/08/2019 11:33:00 PM EDT Outpatient STV 01/08/2019 [facility] 09:30:00 AM EDT Hospital - 01/08/2019 09:39:00 AM EDT Emergency Attender: Megan 5T-EMERG 11/26/2018 NAUSEA [facility] - Mo unt Sicular 08:32:00 PM EST Elliot - 11/26/2018 Hospital 10:12:00 PM EST NAUSEA Attender: Jody [facility] 10/07/2018 01:54:00 NEXTGEN ([facility] PM EST - 10/07/2018 [facility] 01:54:00 PM EST Center) OutpatientOFF Attender: Riddhi [facility] 06/27/2018 11:03:00 NEXTGEN ([facility] ICE/OUTPATIEN [place] [facility] AM EDT - 06/27/2018 [facility] Medical T VISIT, EST 11:03:00 AM EDT Center) Immunizations Vaccine Date Status Description Data Source(s) As of June 1999, 12/30/2019 completed Hep B, adult, 3 dos e NEXTGEN ([facility] a 2-dose hepatitis B 12:00:00 AM [facility] Medical schedule for EDT Center) adolescents (11-15 year olds) was FDA approved for Merck's Recombivax HB adult formulation. Use code 43 for the 2-dose. This code should be used for any use of standard adult formulation of hepatitis B vaccine. Source: New Immunization Record New in 2011. 11/03/2019 12:00:00 completed Influenza, Injectable , NEXTGEN ([facility] IIV4 AM EST Quadrivalent [facility]) Source: New Immunization Record Td (adult) 11/03/2019 12:00:00 completed Td (adult) NEXTGEN ([facility] preservative free AM EST preservative free [facility]) Note: As per patient, received vaccine 10/2018, [facility] N.. ; Source: New Immunization Record As of June 1999, 10/11/2019 12:00:00 completed Hep B, adult , 3 NEXTGEN ([facility] a 2-dose hepatitis B AM EST dose [facility] Medical schedule for Center) adolescents (11-15 year olds) was FDA approved for Merck's Recombivax HB adult formulation. Use code 43 for the 2-dose. This code should be used for any use of standard adult formulation of hepatitis B vaccine. Source: New Immunization Record Medications Medication Brand Start Product Dose Route Administrative Pharmacy [facility] Indications Reaction Description Data Name Date Form Instructions Instructions Source(s) Omeprazole omepra 1.00 ORAL active take 1 N EXTGEN 40 MG zole 2020 {caps capsule by ([facility] Delayed 40 mg 12:00: ule} oral route Yunior ephs Release capsul 00 AM every day Medi shilpa Oral e,ward EDT before a Center) Capsule yed meal omeprazole releas 40 mg e capsule,del ayed release azelastine Azelas 01/02/ 2.00 NASAL complet spray 2 NEXTGEN 137 mcg petra 2020 spray ed spray by ([facility] (0.1 %) hydroc 12:00: intranasal Katharina sephs nasal spray hlorid 00 AM route 2 Me dical aerosol e EDT times every Cente r) 0.137 day in each MG/ACT nostril UAT Metere d Dose Nasal [place] halobetasol halobe apply by NEXTGEN propionate tasol 2020 ed topical (Latrell t 0.0005 propio 12:00: route every J osephs MG/MG nely 00 AM day a thin Medical Topical 0.05 % EST layer to the Ce nter) Ointment topica affected halobetasol l area(s) for propionate ointme 10 days 0.05 % nt topical ointment Ibuprofen Ibupro UNK complet Ibuprofe n [place] 600 MG Oral fen 2019 MG ed 600 MG Oral r County Tablet 600 MG 02:25: Tablet TAKE He alth Oral 09 PM 1 TABLET 3 Care Tablet EST TIMES DAILY Corpor atio NEEDED. n Dispense: 21 Supervising physician: Litzy Samayoa MD Methocarbam UNK complet Methocar bamo [place] ol 500 MG 2019 MG ed l 500 MG r Coun ty Oral Tabl 02:25: Oral Tablet H ealth 09 PM Take 2 Care EST tablets Corporatio three times n a day for the next 3 days. Dispense: 18 Supervising physician: Litzy Samayoa MD Monistat UNK complet Monistat [place] 1-Day 6.5 % 2019 MG ed 1-Day 6.5 % r County Vaginal O 02:01: Vaginal Healt h 33 PM Ointment Care EST INSERT 1 Corporatio APPLICATORFU n L INTRAVAGINAL LY AT BEDTIME. Dispense: 1 Supervising physician: Litzy Samayoa MD Fluconazole Flucon UNK active Flucon azole [place] (Difluca azole 2019 mg (Diflucan) r Co unty (Diflu 01:26: Tablet Oral Heal th ca 02 PM 150 mg PO Care EST Corporatio n Medication administered onsite Methocarbamol 09/24/2019 999 UNK completed Methocarbamol [place] 500 MG Oral 01:25:09 PM MG 500 MG Oral [facility] Tabl EST Tablet Take 2 Health Care tablets three Corpor ation times a day for the next 3 days. Dispense: 18 Supervising physician: Litzy Samayoa MD Ibuprofen 600 Ibuprofen 09/24/2019 999 UNK completed Ibuprofen 600 [place] MG Oral Tablet 600 MG 01:25:09 PM MG M G Oral Tablet [facility] Oral EST TAKE 1 TABLET 3 Heal Care Tablet TIMES DAILY Cor poration NEEDED. Dispense: 21 Supervising physician: Litzy Samayoa MD Monistat 1-Day 09/24/2019 999 UNK completed Monistat 1-Day [place] 6.5 % Vaginal 01:01:33 PM MG 6.5 % Vaginal [facility] EST Ointment INSERT [facility] 1 APPLICATORFUL Mg oration INTRAVAGINALLY AT BEDTIME. Dispense: 1 Supervising physician: Litzy Samayoa MD Robaxin Robaxin 09/24/2019 1000 UNK active Robax in [place] (Methocarba (Methocar 11:02:59 AM mg ( Methocarbamol) [facility] Oral 1000 mg PO [facility] Medication administered onsite Ibuprofen Ibuprofen 09/24/2019 600 UNK active I buprofen [place] (Motrin) O (Motrin) O 11:02:39 AM mg ( Motrin) [facility] Oral 600 mg Care PO Corporation Medication administered onsite Albuterol Albuterol 09/10/2019 1 puff UNK active Albuterol Betty Sulfate Sulfate 09:38:12 AM S adonay ALEMANI [facility] (90mcg/puff) [facility] Care Inh 1 puff Corporati on Inhaled Medication administered onsite Ibuprofen Ibuprofen 09/10/2019 600 UNK active I buprofen [place] (Motrin) O (Motrin) O 09:38:00 AM mg ( Motrin) [facility] [id number] mg Care PO Corporation Medication administered onsite Decadron Decadron 09/10/2019 10 UNK active Dec adron [place] (Dexametha (Dexametha 09:37:26 AM mg ( Dexamethasone) County EST Oral 10 mgPO [facility] Medication administered onsite Ibuprofen 600 Ibuprofen 08/20/2019 999 UNK completed Ibuprofen 600 [place] MG Oral Tablet 600 MG 09:36:35 AM MG M G Oral Tablet County Oral EST TAKE 1 TABLET Health Care Tablet EVERY 6 HOURS Mg oration NEEDED. Dispense: 20 12 Hour 08/20/2019 999 UNK completed 12 Nail r [place] Decongestant 09:36:35 AM MG Decon gestant [place] 0.05 % Na EST 0.05 % Nasal He alth Care Solution USE 1 Corpo ration SPRAY IN EACH NOSTRIL TWICE DAILY. Dispense: 4 12 Hour 08/20/2019 999 UNK completed 12 Anil r [place] Decongestant 09:36:35 AM MG Decon gestant [place] 0.05 % Na EST 0.05 % Nasal He alth Care Solution USE 1 Corpo ration SPRAY IN EACH NOSTRIL TWICE DAILY. Dispense: 4 Ibuprofen 600 Ibuprofen 08/20/2019 999 UNK completed Ibuprofen 600 [place] MG Oral Tablet 600 MG 09:36:35 AM MG M G Oral Tablet County Oral EST TAKE 1 TABLET Health Care Tablet EVERY 6 HOURS Mg oration NEEDED. Dispense: 20 Ibuprofen 600 Ibuprofen 08/20/2019 999 UNK completed Ibuprofen 600 [place] MG Oral Tablet 600 MG 09:36:35 AM MG M G Oral Tablet [place] Oral EST TAKE 1 TABLET Health Care Tablet EVERY 6 HOURS Mg oration NEEDED. Dispense: 20 12 Hour 08/20/2019 999 UNK completed 12 Anil r [place] Decongestant 09:36:35 AM MG Decon gestant [place] 0.05 % Na EST 0.05 % Nasal He alth Care Solution USE 1 Corpo ration SPRAY IN EACH NOSTRIL TWICE DAILY. Dispense: 4 Oxymetazoline 08/20/2019 999 UNK completed Oxymetazoline [place] hydrochloride 09:24:04 AM MG hydr ochloride County 0. EST 0.5 MG/ML Health Car e Nasal [place] Corporat ion [Afrin] Use 1-2 sprays per nostril two times per day as needed. Do not use for longer than 3 days Dispense: 15 mL Oxymetazoline 08/20/2019 999 UNK completed Oxymetazoline [place] hydrochloride 09:24:04 AM MG hydr ochloride [place] 0. EST 0.5 MG/ML Health Car e Nasal [place] Corporat ion [Afrin] Use 1-2 sprays per nostril two times per day as needed. Do not use for longer than 3 days Dispense: 15 mL Oxymetazoline 08/20/2019 999 UNK completed Oxymetazoline [place] hydrochloride 09:24:04 AM MG hydr ochloride [place] 0. EST 0.5 MG/ML Health Car e Nasal [place] Corporat ion [Afrin] Use 1-2 sprays per nostril two times per day as needed. Do not use for longer than 3 days Dispense: 15 mL 12 Hour 08/20/2019 999 UNK completed 12 Anil r [place] Decongestant 08:36:35 AM MG Decon gestant [place] 0.05 % Na EST 0.05 % Nasal He alth Care Solution USE 1 Corpo ration SPRAY IN EACH NOSTRIL TWICE DAILY. Dispense: 4 Ibuprofen 600 Ibuprofen 08/20/2019 999 UNK completed Ibuprofen 600 [place] MG Oral Tablet 600 MG 08:36:35 AM MG M G Oral Tablet County Oral EST TAKE 1 TABLET Health Care Tablet EVERY 6 HOURS Mg oration NEEDED. Dispense: 20 Oxymetazoline 08/20/2019 999 UNK completed Oxymetazoline [place] hydrochloride 08:24:04 AM MG hydr ochloride [place] 0. EST 0.5 MG/ML Health Car e Nasal [place] Corporat ion [Afrin] Use 1-2 sprays per nostril two times per day as needed. Do not use for longer than 3 days Dispense: 15 mL Ibuprofen Ibuprofen 08/20/2019 600 UNK active I buprofen [place] (Motrin) O (Motrin) O 08:10:34 AM mg ( Motrin) Oral County EST 600 mg PO Health Car e Badge Medication administered onsite 1.5 ML Invega 01/19/2019 234 INTRAMUSCULAR completed Invega [facility] paliperidone Sustenna - 234 12:00:00 AM Milligram [facility] - 234 [facility] palmitate 156 MG EDT MG Hospit al MG/ML INTRAMUSCULAR INTRAMUSCU LAR Prefilled Suspension, Suspensi on, Syringe Extended Extended [Invega] Release Release Betamethasone betamethasone 06/27/2018 TOPICAL complete d apply by NEXTGEN 0.0005 MG/MG dipropionate 12:00:00 AM topical route ([facility] Topical 0.05 % topical EDT every d ay a [facility] Ointment ointment thin layer t o Medical betamethasone the affecte d [place]) dipropionate area(s) 0.05 % topical ointment Total Block tio2/zinc 06/27/2018 completed Apply to the NEXTGEN Cover Up SPF ox/oxbn/octnx/ 12:00:00 AM skin after ([facility] 60 lotion o-cryl EDT applying the [facility] topical Medical ointment Center) cream. multivitamin multivitamin 06/27/2018 completed Take as NEXTGEN with iron with iron 12:00:00 AM wri tten on ([facility] tablet EDT packaging. [facility]) Hydrocortison hydrocortisone 08/08/2016 C 1 {janeth} TOPICAL comp leted [facility] 10 MG/ML 1% topical 07:21:30 PM R e Health Rectal Cream cream EDT E System hydrocortison A e 1% topical M cream For external use only. Hydrocortisone hydrocortisone 08/08/2016 1 TOPICAL comple lj [facility] hydrocortisone 07:16:58 PM {janeth} Health EDT System Pramoxine pramoxine-zinc 08/08/2016 CREA 1 TOPICAL completed [facility] hydrochloride oxide 1%-5% 12:00:00 AM M {janeth} Health 10 MG/ML / Zinc topical cream EDT System Oxide 50 MG/ML Rectal Cream pramoxine-zinc oxide 1%-5% topical cream Miconazole Miconazole 3 03/25/2016 SUPP 1 VAGINAL completed [facility] Nitrate 200 MG vaginal 03:21:02 PM OSIT {SUPP( Health Vaginal suppository EDT ORY s)} Syste m Suppository Miconazole 3 vaginal suppository Finish all this medication unless otherw ise directed by prescriber.For vaginal use. 03/04/2016 1 completed [facility] Multivitamins 11:18:45 AM {tab(s)} Health EDT System NITROFURANTOIN, Macrobid 02/27/2016 CAPSULE 1 ORAL completed [facility] MACROCRYSTALS 100 mg 01:35:16 AM {cap(s)} Health 25 MG / oral EDT System Nitrofurantoin, capsule Monohydrate 75 MG Oral Capsule [Macrobid] Macrobid 100 mg oral capsule Finish all this medication unless otherw ise directed by prescriber.May discolor urine or feces.Take with food or milk. ferrous ferrous 02/05/2016 TABLET 1 {tab(s)} ORAL completed [facility] sulfate 325 sulfate 325 06:40:27 PM Health MG Oral mg (65 mg EDT System Tablet elemental ferrous iron) oral sulfate 325 tablet mg (65 mg elemental iron) oral tablet Check with your doctor before becoming p regnant.Do not chew, break, or crush.May discolor urine or feces. NITROFURANTOIN, nitrofurantoin 01/11/2016 CAPSULE 1 ORAL compl eted [facility] MACROCRYSTALS macrocrystals 05:22:53 AM {cap(s)} Health 100 MG Oral 100 mg oral EDT S ystem Capsule capsule nitrofurantoin macrocrystals 100 mg oral capsule Finish all this medication unless otherw ise directed by prescriber.May discolor urine or feces.Take with food or milk. Ketoconazole ketoconazole 12/26/2015 CREAM 1 TOPICAL completed [facility] 20 MG/ML 2% topical 02:43:35 PM {janeth} Health Topical Cream cream EDT Syste m ketoconazole 2% topical cream Check with your doctor before becoming p regnant.For external use only.Obtain medical advice before taking any non-prescriptio n drugs as some may affect the action of this medication. Diphenhydramine Allergy Relief 09/20/2015 CAPSULE 1 ORAL compl eted [facility] Hydrochloride 25 (Diphenhydramine 03:32:19 PM {cap(s)} Health MG Oral Capsule HCl) 25 mg oral EST System Allergy Relief capsule (Diphenhydramine HCl) 25 mg oral capsule May cause drowsiness. Alcohol may inten sify this effect. Use care when operating dangerous machinery.Obtain medical advic e before taking any non-prescription drugs as some may affect the action of this medic ation. Zofran 07/23/2015 999 UNK completed Zofra n [place] 4mg-10 02:54:11 AM MG 4mg; Ten Co unty EDT (10); Take Health Ca re one by mouth Corpora tion every eight hours as needed for nausea Zofran 07/23/2015 999 UNK completed Zofra n [place] 4mg-10 02:54:11 AM MG 4mg; Ten Co unty EDT (10); Take Health Ca re one by mouth Corpora tion every eight hours as needed for nausea Zofran 07/23/2015 999 UNK completed Zofra n [place] 4mg-10 02:54:11 AM MG 4mg; Ten Co unty EDT (10); Take Health Ca re one by mouth Corpora tion every eight hours as needed for nausea Raltegravir 07/23/2015 999 UNK completed [place] Oral 02:41:41 AM MG Raltegravir C ounty EDT Oral 400 Health Car e mg(s) - Corporation Instructions : PO BID - Duration: X 21 day(s) Truvada Oral 07/23/2015 999 UNK completed [facility] 02:41:41 AM MG Oral 1 Count y EDT tablet(s) Health Car e every day - Corporat ion Duration: X 21 day(s) - Dispense: quantity sufficient Raltegravir 07/23/2015 999 UNK completed [place] Oral 02:41:41 AM MG Raltegravir C ounty EDT Oral 400 Health Car e mg(s) - Corporation Instructions : PO BID - Duration: X 21 day(s) Raltegravir 07/23/2015 999 UNK completed [place] Oral 02:41:41 AM MG Raltegravir C ounty EDT Oral 400 Health Car e mg(s) - Corporation Instructions : PO BID - Duration: X 21 day(s) Truvada Oral 07/23/2015 999 UNK completed [facility] 02:41:41 AM MG Oral 1 Count y EDT tablet(s) Health Car e every day - Corporat ion Duration: X 21 day(s) - Dispense: quantity sufficient Truvada Oral 07/23/2015 999 [facility]K [facility] AM MG Oral 1 Count y EDT tablet(s) Health Car e every day - Corporat ion Duration: X 21 day(s) - Dispense: quantity sufficient Zofran 07/23/2015 999 UNK completed Zofra n [place] 4mg-10 01:54:11 AM MG 4mg; Ten Co unty EDT (10); Take Health Ca re one by mouth Corpora tion every eight hours as needed for nausea Raltegravir 07/23/2015 999 UNK completed [place] Oral 01:41:41 AM MG Raltegravir C ounty EDT Oral 400 Health Car e mg(s) - Corporation Instructions : PO BID - Duration: X 21 day(s) Truvada Oral 07/23/2015 999 UNK completed Truvada [place] 01:41:41 AM MG Oral 1 Count y EDT tablet(s) Health Car e every day - Corporat ion Duration: X 21 day(s) - Dispense: quantity sufficient Prednisone predniSO 08/02/2014 TABLET 2 ORAL completed [facility] 20 MG Oral NE 20 mg 09:05:02 AM {tab Health Tablet oral EDT (s)} System predniSONE tablet 20 mg oral tablet It is very important that you take or us e this exactly as directed. Do not skip doses or discontinue unless directed by your doctor.Obtain medical advice before taking any non-prescription drugs as kurtis e may affect the action of this medication.Take with food or milk. Diphenhydramine diphenhydrAMINE 07/08/2014 TABLET 1 ORAL compl eted [facility] Hydrochloride 50 50 mg oral 05:26:37 PM {tab(s)} Health MG Oral Tablet tablet EDT Sys tem diphenhydrAMINE 50 mg oral tablet May cause drowsiness. Alcohol may inten sify this effect. Use care when operating dangerous machinery.Obtain medical advic e before taking any non-prescription drugs as some may affect the action of this medic ation. Betamethasone betamethasone 07/08/2014 CREAM 1 TOPICAL complet ed [facility] 0.5 MG/ML dipropionate, 05:25:35 PM {janeth} Health Augmented augmented EDT Syste m Topical Cream 0.05% topical betamethasone cream dipropionate, augmented 0.05% topical cream For external use only. mometasone Elocon 06/04/2014 CREAM 1 {janeth} TOPICAL completed [facility] furoate 1 0.1% 10:20:52 AM Hea lth MG/ML topical EDT System Topical cream Cream [Elocon] Elocon 0.1% topical cream For external use only. Diphenhydramine Benadryl 06/04/2014 CAPSULE 2 ORAL completed [facility] Hydrochloride 25 25 mg 10:20:20 AM {cap(s)} Health MG Oral Capsule oral EDT Syst em [Benadryl] capsule Benadryl 25 mg oral capsule May cause drowsiness. Alcohol may inten sify this effect. Use care when operating dangerous machinery.Obtain medical advic e before taking any non-prescription drugs as some may affect the action of this medic ation. Prednisone predniSONE 06/04/2014 TABLET 1 {tab(s)} ORAL completed [facility] 10 MG Oral 10 mg oral 10:19:21 AM Health Tablet tablet EDT System predniSONE 10 mg oral tablet It is very important that you take or us e this exactly as directed. Do not skip doses or discontinue unless directed by your doctor.Obtain medical advice before taking any non-prescription drugs as kurtis e may affect the action of this medication.Take with food or milk. NITROFURANTOIN, nitrofurantoin 1 ORAL completed [facility] MACROCRYSTALS macrocrystals {cap(s)} Health 100 MG Oral 100 mg oral S ystem Capsule capsule nitrofurantoin macrocrystals 100 mg oral capsule Ciprofloxacin ciprofloxacin 1 completed [facility] 250 MG Oral HCl 250 mg Katharina sephs Tablet Tablet, Ordered Me dical ciprofloxacin By: Dalton C enter HCl 250 mg Graves, Tablet, Ordered MDDirections: 1 By: Dalton tablet oral Graves, every twelve MDDirections: 1 hours tablet oral every twelve hours Tobramycin 3 tobramycin 0.3 2 completed [facility] MG/ML Ophthalmic % Drops, Manuel Solution Ordered By: Medi shilpa tobramycin 0.3 % Gilbert Mcghee, Center Drops, Ordered DODirections: 2 By: Gilbert Mcghee, ophthalmic, DODirections: 2 both eyes three drop ophthalmic, times a day both eyes three times a day olanzapine 20 MG Zyprexa 999 MG oral completed Zypr [place] Oral Tablet [facility] [Zyprexa] [employer] olanzapine 20 MG Zyprexa 999 MG oral completed ypr [place] Oral Tablet [facility] [Zyprexa] [employer] olanzapine 20 MG Zyprexa 999 MG oral completed Zypr [place] Oral Tablet [facility] [Zyprexa] [employer] insulin human, insulin 10 SUBCUTANE completed [facility] isophane 100 isophane (NPH) {units} [facility] UNT/ML 100 units/mL Syste m Injectable human Suspension recombinant insulin isophane subcutaneous (NPH) 100 suspension units/mL human recombinant subcutaneous suspension olanzapine 20 MG Zyprexa 999 MG oral completed Zypr [place] Oral Tablet [facility] [Zyprexa] [facility] [employer] Linseed Oil 1000 flaxseed oil active NEXTGEN MG Oral Capsule 1,000 mg ([facility] flaxseed oil capsule Charles phs 1,000 mg capsule [facility] ical [place]) Regular Insulin, insulin regular 28 SUBCUTANE complet ed [facility] Human 500 UNT/ML (concentrated) {units} [facility] Injectable 500 units/mL S ystem Solution insulin human regular recombinant (concentrated) subcutaneous 500 units/mL solution human recombinant subcutaneous solution olanzapine 10 MG ZyPREXA 10 mg TABLE 1 ORAL completed [facility] Oral Tablet oral tablet T {tab(s)} [facility] [Zyprexa] System ZyPREXA 10 mg oral tablet alpha lipoic alpha lipoic completed NEXTGEN acid (bulk) acid ([facility]) olanzapine 5 MG OLANZapine 5 mg TABLE 1 ORAL completed [facility] Oral Tablet oral tablet T {tab(s)} [facility] OLANZapine 5 mg Syst em oral tablet miconazole [id number] 1 completed Cecy S aint nitrate stat [facility] (Monistat 7) 2 % 7 Med ical (100 mg)-2 % (9 Cent er gram) comb pack,prefill appl, cream, Ordered By: RANDA Molinairections: 1 each per vagina daily Betamethasone clotrimazole-be 1 completed [facility] 0.5 MG/ML / tamethasone 1 [facility] Clotrimazole 10 %-0.05 % Cream, Medical MG/ML Topical Ordered By: [place] Cream Mary Ellen clotrimazole-[facility] Thelma amethasone 1 PADirections: 1 %-0.05 % Cream, application Ordered By: topical twice a Mary Ellen day Thelma PADirections: 1 application topical twice a day olanzapine 15 MG ZyPREXA 15 mg TABLE 1 ORAL completed [facility] Oral Tablet oral tablet T {tab(s)} [facility] [Zyprexa] System ZyPREXA 15 mg oral tablet Bailey-3 350 omega-3/dha/epa active NEXTGEN mg-235 mg-90 /fish oil (S aint mg-597 mg Manuel capsule,delayed Medi shilpa release Center) olanzapine 10 MG ZyPREXA 10 mg TABLE 1 ORAL completed [facility] Oral Tablet oral tablet T {tab(s)} Health [Zyprexa] System ZyPREXA 10 mg oral tablet folic acid 1 mg Folic Acid 1 MG 1.00 ORAL active take NEXTGEN tablet Oral Tablet {tablet} 1 (S aint tabl [facility]) oral rout e ever y day Insurance Providers Payer name Policy type Policy ID Covered Covered democrat's Policy P joana / Coverage democrat ID relationship to [facility] [employer] ormation type grimes HIP MEDICARE [id number] VIP MEDICAID [id number] SP [id number] [facility] O [id number] 01 [id number] W [id number] UNK UNK UNK UNK UNK UNK VALUE [id number] SP [id number] OPTIONS-MEDICAR E HIP MEDICARE [id number] SP [id number] VIP UNK UNK UNK UNK UNK UNK MEDICARE [id number] SP [id number] UNK UNK UNK UNK UNK UNK United [id number] S [id number] Healthcare Choice Plus Medicare Escalante [id number] S [id number] Government Services Medicaid [id number] S [id number] Regular Clinic Visit UNK UNK UNK UNK UNK UNK W [id number] 01 [id number] SELF PAY 00 Self 00 MEDICAID INP [id number] Self [id number] MEDICARE B [id number] Self [id number] MEDICARE A [id number] Self [id number] Medicaid Medicaid [id number] 1 [id number] Medicare Part B Medicare [id number] 1 [id number] Outpatient Self Pay Self Pay 1 Problems, Conditions, and Diagnoses Code Display Name Description Problem Effective Data Source (s) Type Dates [id number] Posttraumatic stress Posttraumatic Complaint 09/17/2019 N [employer] disorder stress disorder 05:55:00 PM (Mental Health EST [facility]) [id number] Schizoaffective Schizoaffective Complaint 12/12/2015 [employer] disorder, bipolar disorder, bipolar 05:00:00 AM (Mental Health type type EST [facility]) [id number] Acute schizophrenic Acute schizophrenic Complaint [facility] episode (disorder) episode 12:00:00 PM [facility] EST [id number] Acute schizophrenic Acute schizophrenic Complaint [facility] episode (disorder) episode 12:00:00 PM [facility] EST [id number] Acute schizophrenic Acute schizophrenic Complaint [facility] episode (disorder) episode 12:00:00 PM [facility] EST [id number] Anemia An[facility] 103487957 Prediabetes Prediabetes Problem [facility] 09013583 Abdominal pain Abdominal pain Problem [facility]GE N ([facility]) 044761361 Pain in throat Pain in throat Problem [facility] N ([facility]) 06320194 Pain in eye Pain in eye Problem [facility] ([facility]) K76.89 Other specified OTHER SPECIFIED Diagnosis 06/07/2020 [facility] diseases of liver DISEASES OF LIVER 04:22:00 PM Medical Center EDT R10.9 Unspecified UNSPECIFIED Diagnosis 06/07/2020 [place] [facility] abdominal pain ABDOMINAL PAIN 04:22:00 PM Medic ma Center EDT K86.9 Disease of pancreas, DISEASE OF Diagnosis 06/07/2020 [facility] unspecified PANCREAS, 04:22:00 PM Medical Cent er UNSPECIFIED EDT R16.0 Hepatomegaly, not HEPATOMEGALY, NOT Diagnosis 04/05/2020 [facility] Manuel elsewhere classified ELSEWHERE 02:16:00 PM Med ical Center CLASSIFIED EDT R10.2 Pelvic and perineal PELVIC AND PERINEAL Diagnosis 020 [facility] pain PAIN 10:58:00 AM Medical Cente r EDT N83.292 Other ovarian cyst, OTHER OVARIAN CYST, Diagnosis 020 [facility] [place] left side LEFT SIDE 01:38:00 PM Medical Cente r EDT E07.9 Disorder of thyroid, DISORDER OF Diagnosis 01/27/2020 [facility] unspecified THYROID, 01:38:00 PM Medical Cent er UNSPECIFIED EDT Z11.3 Encounter for ENCNTR SCREEN FOR Diagnosis 01/27/2020 [facility]ll [facility] screening for INFECTIONS W SEXL 01:38:00 PM Med ical Center infections with a MODE OF TRANSMISS EDT predominantly sexual mode of transmission Z59.0 Homelessness HOMELESSNESS Diagnosis 01/18/2020 [facility] r 01:32:00 PM [facility] EDT [facility] [employer] Z87.59 Personal history of PERSONAL HISTORY OF Diagnosis [address] [place] [address] other complications COMP OF PREG, 01:32:[facility] , CHLD[facility] AND THE EDT Care childbirth and the PUERP Corpor ation puerperium F25.9 Schizoaffective SCHIZOAFFECTIVE Diagnosis 01/18/2020 [place] disorder, DISORDER, 01:32:00 PM [facility] unspecified UNSPECIFIED EDT [facility] 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 01/18/2020 [facility] stress disorder, STRESS DISORDER, 01:32:00 PM [facility] unspecified UNSPECIFIED EDT [facility] R09.89 Other specified OTH SYMPTOMS AND Diagnosis 01/18/2020 [facility] symptoms and signs SIGNS INVOLVING THE 01:32:00 [facility], [facility] involving the CIRC AND RESP EDT Care circulatory and SYSTEMS Corporati on respiratory systems Z32.02 Encounter for ENCOUNTER FOR Diagnosis 01/18/2020 [facility] test, TEST, 01:32:00 PM [facility] Health result negative RESULT NEGATIVE EDT [facility] R10.9 Unspecified UNSPECIFIED Diagnosis 01/18/2020 [place] abdominal pain ABDOMINAL PAIN 01:32:00 PM [facility] Health EDT [facility] Z71.89 Other specified OTHER SPECIFIED Diagnosis 01/13/2020 [facility] counseling COUNSELING 02:32:00 PM Medical Cente r EDT T78.40XA Allergy, ALLERGY, Diagnosis 01/13/2020 [facility] unspecified, initial UNSPECIFIED, 02:32:00 PM edical [place] encounter INITIAL ENCOUNTER EDT R79.9 Abnormal finding of ABNORMAL FINDING OF Diagnosis [facility] blood chemistry, BLOOD CHEMISTRY, 01:09:00 PM [facility] [place] unspecified UNSPECIFIED EDT Z02.89 Encounter for other ENCOUNTER FOR OTHER Diagnosis [address] [place] [address] administrative ADMINISTRATIVE 01:09:00 PM Medic al Center examinations EXAMINATIONS EDT Z23 Encounter for ENCOUNTER FOR Diagnosis 12/30/2019 [facility] immunization IMMUNIZATION 11:13:00 AM Medical C enter EDT Z11.4 Encounter for ENCOUNTER FOR Diagnosis 12/30/2019 [facility] screening for human SCREENING FOR HUMAN 11:13:0 0 AM Medical Center immunodeficiency IMMUNODEFICIENCY EDT virus [HIV] VIRUS R92.2 Inconclusive INCONCLUSIVE Diagnosis 12/30/2019 [place] mammogram MAMMOGRAM 11:13:00 AM Medical Cente r EDT B34.9 Viral infection, VIRAL INFECTION, Diagnosis 12/22/2019 Sa der[facility] unspecified UNSPECIFIED 11:16:[address] EDT L81.4 Other melanin OTHER MELANIN Diagnosis 11/08/2019 [facility] hyperpigmentation HYPERPIGMENTATION 03:17:00 PM Medical Center EST Z70.8 Other sex counseling OTHER SEX Diagnosis 11/03/2019 [facility] COUNSELING 01:15:00 PM Medical Cente r EST B00.9 Herpesviral HERPESVIRAL Diagnosis 11/03/2019 [facility] infection, INFECTION, 01:15:00 PM Medical Cente r unspecified UNSPECIFIED EST Z12.31 Encounter for ENCNTR SCREEN Diagnosis 11/03/2019 [facility] screening mammogram MAMMOGRAM FOR 01:15:00 PM [facility] for malignant MALIGNANT NEOPLASM EST neoplasm of breast OF BREAST Z12.4 Encounter for ENCOUNTER FOR Diagnosis 11/03/2019 [facility] screening for SCREENING FOR 01:15:00 PM [facility] malignant neoplasm MALIGNANT NEOPLASM EST of cervix OF CERVIX L68.0 Hirsutism HIRSUTISM Diagnosis 10/21/2019 [facility] 02:59:00 PM Medical Cente r EST R21 Rash and other RASH AND OTHER Diagnosis 10/21/2019 [facility] nonspecific skin NONSPECIFIC SKIN 02:59:00 PM [facility] eruption ERUPTION EST H93.8X9 Other specified OTHER SPECIFIED Diagnosis 10/18/2019 L[facility] disorders of ear, DISORDERS OF EAR, 03:18:00 PM Medical Center unspecified ear UNSPECIFIED EAR EST M25.60 Stiffness of STIFFNESS OF Diagnosis 10/18/2019 [facility] unspecified joint, UNSPECIFIED JOINT, 01:07:00 PM Medical Center not elsewhere NOT ELSEWHERE EST classified CLASSIFIED M54.9 Dorsalgia, DORSALGIA, Diagnosis 10/18/2019 [facility] unspecified UNSPECIFIED 01:07:[address] EST D64.9 Anemia, unspecified ANEMIA, UNSPECIFIED Diagnosis 019 [facility] 03:46:00 PM Medical Cente r EST R73.03 Prediabetes PREDIABETES Diagnosis 10/11/2019 [facility] 03:46:00 PM Medical Cente r EST J06.9 Acute upper ACUTE UPPER Diagnosis 10/11/2019 [facility] respiratory RESPIRATORY 03:46:[address] infection, INFECTION, EST unspecified UNSPECIFIED H57.10 Ocular pain, OCULAR PAIN, Diagnosis 10/11/2019 [place] [facility] unspecified eye UNSPECIFIED EYE 03:46:00 PM [facility] EST Z68.25 Body mass index BODY MASS INDEX Diagnosis 10/02/2019 [facility] (BMI) 25.0-25.9, (BMI) 25.0-25.9, 03:00:00 PM [facility] adult ADULT EST Z88.8 Allergy status to ALLERGY STATUS TO Diagnosis 09/27/2019 [place] other drugs, OTH DRUG/MEDS/BIOL 02:57:00 PM [facility] medicaments and SUBST STATUS [facility] [employer] substances status M54.6 Pain in thoracic PAIN IN THORACIC Diagnosis 09/27/2019 [facility] spine SPINE 02:57:00 PM Critical access hospital [employer] M54.9 Dorsalgia, DORSALGIA, Diagnosis 09/27/2019 [place] unspecified UNSPECIFIED 02:57:00 PM [facility] [employer] B37.3 Candidiasis of vulva CANDIDIASIS OF Diagnosis 09/24/2019 [place] and vagina VULVA AND VAGINA 08:48:00 AM [facility] [employer] Y99.8 Other external cause OTHER EXTERNAL Diagnosis 09/24/2019 [place] status CAUSE STATUS 08:48:00 AM [facility] [employer] Y92.[address] in UNSP PLACE IN UNSP Diagnosis 019 [place] unspecified NON-INSTITUT 08:48:00 AM [facility] non-institutional (PRIVATE) RESIDENCE [facility] (private) residence PLACE [employer] ration as the place of occurrence of the external cause X58.XXXA Exposure to other EXPOSURE TO OTHER Diagnosis 09/24/2019 [place] specified factors, SPECIFIED FACTORS, 08:48:00 AM [facility] initial encounter INITIAL ENCOUNTER [employer] S39.012A Strain of muscle, STRAIN OF MUSCLE, Diagnosis 09/24/2019 [place] fascia and tendon of FASCIA AND TENDON 08:48:00 AM [facility] lower back, initial OF LOWER BACK, INIT EST Care encounter Corporation M54.5 Low back pain LOW BACK PAIN Diagnosis 09/24/2019 [facility] 08:48:00 AM Critical access hospital [facility] [employer] Z23 Encounter for ENCOUNTER FOR Diagnosis 09/16/2019 [facility] immunization IMMUNIZATION 09:34:00 AM [facility] EST [facility] [employer] J34.89 Other specified OTHER SPECIFIED Diagnosis 09/16/2019 [place] disorders of nose DISORDERS OF NOSE 09:34:00 AM [facility] nasal sinuses AND NASAL SINUSES EST [facility] R51 Headache HEADACHE Diagnosis 09/16/2019 [place] 09:34:00 AM [facility] R05 Cough COUGH Diagnosis 09/16/2019 [place] 09:34:00 AM [facility] [employer] J02.8 Acute pharyngitis ACUTE PHARYNGITIS Diagnosis 09/16/2019 [place] due to other DUE TO OTHER 09:34:00 AM [facility] specified organisms SPECIFIED ORGANISMS EST [facility] [employer] J02.9 Acute pharyngitis, ACUTE PHARYNGITIS, Diagnosis 9 [place] unspecified UNSPECIFIED 08:24:00 AM [facility] EST [facility] [employer] M79.10 MYALGIA, UNSPECIFIED MYALGIA, Diagnosis 09/03/2019 [place] SITE UNSPECIFIED SITE 09:03:00 AM [facility] [employer] M79.601 Pain in right arm PAIN IN RIGHT ARM Diagnosis 09/03/2019 [place] 09:03:00 AM [facility] [employer] J06.9 Acute upper ACUTE UPPER Diagnosis 08/20/2019 [place] respiratory RESPIRATORY 08:59:00 AM [facility] infection, INFECTION, EST Care unspecified UNSPECIFIED Corporation F17.210 Nicotine dependence, NICOTINE Diagnosis 07/31/2019 [facility] cigarettes, DEPENDENCE, 02:11:[address] uncomplicated CIGARETTES, EDT UNCOMPLICATED L25.9 Unspecified contact UNSPECIFIED CONTACT Diagnosis 019 [facility] [place] dermatitis, DERMATITIS, 02:11:[address] unspecified cause UNSPECIFIED CAUSE EDT N76.0 Acute vaginitis ACUTE VAGINITIS Diagnosis 07/31/2019 [facility] 02:11:00 PM Medical Cente r EDT N89.8 Other specified OTHER SPECIFIED Diagnosis 07/31/2019 [facility] noninflammatory NONINFLAMMATORY 02:11:00 PM [facility] [place] disorders of vagina DISORDERS OF VAGINA EDT H10.33 Unspecified acute UNSPECIFIED ACUTE Diagnosis 06/23/2019 [facility] [place] conjunctivitis, CONJUNCTIVITIS, 05:03:00 PM [facility] [place] bilateral BILATERAL EDT R42 Dizziness and DIZZINESS AND Diagnosis 06/23/2019 [facility] giddiness GIDDINESS 05:03:00 PM [facility] R10.30 Lower abdominal LOWER ABDOMINAL Diagnosis 06/04/2019 [facility] pain, unspecified PAIN, UNSPECIFIED 09:58:00 AM [facility] EDT Z68.27 Body mass index BODY MASS INDEX Diagnosis 03/05/2019 [facility] (BMI) 27.0-27.9, (BMI) 27.0-27.9, 10:44:00 AM [facility] adult ADULT EDT Z00.01 Encounter for ENCOUNTER FOR Diagnosis 03/05/2019 [facility] adult GENERAL ADULT 10:44:00 AM Medical Center medical examination MEDICAL EXAM W EDT with abnormal ABNORMAL FINDINGS findings F33.3 Major depressive MAJOR DEPRESSV Diagnosis 02/18/2019 [facility] disorder, recurrent, DISORDER, 10:05:00 AM [facility] severe with RECURRENT, SEVERE W EDT psychotic symptoms PSYCH SYMPTOMS F20.9 Schizophrenia, Schizophrenia, Diagnosis 02/08/2019 [place] unspecified unspecified 11:22:00 AM Hospital EDT 995.3 ALLERGY UNSPECIFIED ALLERGY, Diagnosis 12/11/[address] NOT ELSEWHERE UNSPECIFIED 03:57:02 PM ([facility] clifon CLASSIFIED [facility]) 782.1 RASH AND OTHER RASH Diagnosis 12/11/2018 [place] NONSPECIFIC SKIN 03:57:02 PM ([place] ERUPTION [facility]) Y92.[address] in Nursing Home as place of Diagnosis 019 [facility] shelter as the place occurrence of 08:32:00 PM V dave of occurrence of the external cause [facility] external cause T73.0XXA Starvation, initial Hunger Diagnosis 11/26/2018 [facility] encounter 08:32:00 PM [facility] Y99.8 Other external cause Other external Diagnosis 11/26/2018 [facility] status cause of injury or 08:32:00 PM [place] poisoning EST Hospital NAUSEA NAUSEA Diagnosis 11/26/2018 [facility] 08:32:00 PM [facility] X58.XXXA Exposure to other Exposure to other Diagnosis 11/26/2018 [facility] specified factors, specified factors, 08:32:00 PM [place] initial encounter initial encounter [facility] Y93.89 Activity, other Other activity Diagnosis 11/26/2018 [facility] specified 08:32:00 PM [facility] 295.74 SCHIZOAFFECTIVE Acute exacerbation Diagnosis 07/29/2012 [facility] DISORDER CHRONIC of chronic 12:00:00 AM [facility] WITH ACUTE schizoaffective EDT Hos pital EXACERBATION schizophrenia Diagnosis [facility] Diagnosis [facility] Surgeries/Procedures Procedure Description Date Indications Data Source(s) OFFICE/OUTPATIENT VISIT, 02/02/2020 NEX TGEN ([facility] EST 12:00:00 AM EDT [facility] 02/02/2020 [place]) 12:00:00 AM EDT OFFICE/OUTPATIENT VISIT, 01/27/2020 NEX TGEN ([facility] EST 12:00:00 AM EDT [facility] 01/27/2020 [place]) 12:00:00 AM EDT OFFICE/OUTPATIENT VISIT, 01/13/2020 NEX TGEN ([facility] EST 12:00:00 AM EDT [facility] 01/13/2020 [place]) 12:00:00 AM EDT OFFICE/OUTPATIENT VISIT, 01/03/2020 NEX TGEN ([facility] EST 12:00:00 AM EDT [facility] 01/03/2020 [place]) 12:00:00 AM EDT URINE TEST 01/03/2020 NEXTGEN ([facility] 12:00:00 AM EDT [facility] 01/03/2020 [place]) 12:00:00 AM EDT OFFICE/OUTPATIENT VISIT, 12/30/2019 NEX TGEN ([facility] EST 12:00:00 AM EDT [facility] 12/30/2019 [place]) 12:00:00 AM EDT HEP B VACCINE, ADULT, IM 12/30/2019 NEX TGEN ([facility] [place]) 12:00:00 AM EDT Immunization 12/30/2019 NEXTGEN ([facility] Administration 12:00:00 AM EDT [facility] dical - 12/30/2019 Center) 12:00:00 AM EDT ROUTINE VENIPUNCTURE 12/30/2019 NEXTGEN ([facility] 12:00:00 AM EDT [facility] - 12/30/2019 [place]) 12:00:00 AM EDT OFFICE/OUTPATIENT VISIT, 12/22/2019 NEX TGEN ([facility] 12:00:00 AM EDT [facility] - 12/22/2019 Center) 12:00:00 AM EDT OFFICE/OUTPATIENT VISIT, 11/08/2019 NEX TGEN ([facility] 12:00:00 AM EST [facility] - 11/08/2019 Center) 12:00:00 AM EST TD VACCINE >7 IM 11/03/2019 NEXTGEN (Sa int 12:00:00 AM [facility] 11/03/2019 [place]) 12:00:00 AM EST Immunization 11/03/2019 NEXTGEN ([facility] 12:00:00 AM EST [facility] dicma - 11/03/2019 [place]) 12:00:00 AM EST Influenza, Injectable, 3 11/03/2019 NEX TGEN ([facility] Yrs Or Older 12:00:00 AM EST [facility] - 11/03/2019 Center) 12:00:00 AM EST Immunization 11/03/2019 NEXTGEN ([facility] 12:00:00 AM EST [facility] dicma - 11/03/2019 [place]) 12:00:00 AM EST Well Visit, 11/03/2019 NEXTGEN ([facility],40-64years 12:00:00 AM EST [facility] dicma - 11/03/2019 [place]) 12:00:00 AM EST SPECIMEN HANDLING 11/03/2019 NEXTGEN (S aint 12:00:00 AM EST [facility] - 11/03/2019 Center) 12:00:00 AM EST OFFICE/OUTPATIENT VISIT, 10/21/2019 NEX TGEN ([facility] 12:00:00 AM EST [facility] 10/21/2019 [place]) 12:00:00 AM EST OFFICE/OUTPATIENT VISIT, 10/18/2019 NEX TGEN ([facility] 12:00:00 AM EST [facility] 10/18/2019 [place]) 12:00:00 AM EST OFFICE/OUTPATIENT VISIT, 10/11/2019 NEX TGEN ([facility] 12:00:00 AM EST [facility] - 10/11/2019 Center) 12:00:00 AM EST HEP B VACCINE, ADULT, IM 10/11/2019 NEX TGEN ([facility] 12:00:00 AM [facility] 10/11/2019 [place]) 12:00:00 AM EST Immunization 10/11/2019 NEXTGEN ([facility] 12:00:00 AM EST [facility] dical - 10/11/2019 Center) 12:00:00 AM EST Vision Screening - 0 - 21 10/11/2019 NE XTGEN ([facility] y/o 12:00:00 AM [facility] 10/11/2019 [place]) 12:00:00 AM EST OFFICE/OUTPATIENT VISIT, 10/02/2019 NEX TGEN ([facility] EST 12:00:00 AM [facility] 10/02/2019 [place]) 12:00:00 AM EST ROUTINE VENIPUNCTURE 10/02/2019 NEXTGEN ([facility] 12:00:00 AM [facility] 10/02/2019 [place]) 12:00:00 AM EST Psychotherapy (60 Mins) 03/26/2019 NEXT GEN ([facility] W/ E&M 12:00:00 AM EDT [facility] - 03/26/2019 Center) 12:00:00 AM EDT OFFICE/OUTPATIENT VISIT, 03/26/2019 NEX TGEN ([facility] [place]) 12:00:00 AM EDT Individual Psychotherapy 03/11/2019 NEX TGEN ([facility] (30 Min) 12:00:00 AM EDT [facility] 03/11/2019 [place]) 12:00:00 AM EDT OFFICE/OUTPATIENT VISIT, 03/05/2019 NEX TGEN ([facility] EST 12:00:00 AM EDT [facility] 03/05/2019 Center) 12:00:00 AM EDT Individual Psychotherapy 03/03/2019 NEX TGEN ([facility] (30 Min) 12:00:00 AM EDT [facility] 03/03/2019 [place]) 12:00:00 AM EDT OFFICE/OUTPATIENT VISIT, 06/27/2018 NEX TGEN ([facility] EST 12:00:00 AM EDT [facility] 06/27/2018 [place]) 12:00:00 AM EDT US Obstetric limited 01/18/2016 [facility] 08:57:22 AM EDT System - 01/18/2016 08:57:22 AM EDT Urine Test POCT 01/17/2016 [facility] 07:19:46 PM EDT System - 01/17/2016 07:19:46 PM EDT CBC w/Auto Differential- 01/11/2016 [facility] NR/SECC Only 03:59:00 AM EDT System - 01/11/2016 03:59:00 AM EDT U[facility]T System - 01/10/2016 09:50:35 PM EDT Urine Test POCT 07/04/2013 [facility] 01:23:34 AM EDT System - 07/04/2013 01:23:34 AM EDT Results ID Date Data Source [id number] 01/03/2020 03:45:00 PM EDT [facility] Name Value Range Interpretation Description Data Sup porting Code Source(s) Document(s ) Thyroxine (T4) 0.78-2.1 <content [facility] 9 styleCode="Merline [facility] [Mass/volume] d">T4 Free Medical in Serum or </content>1.45 Center Plasma NG/DL<content styleCode="Salud lics"> (0.78-2.19 NG/DL)</conten t> Thyrotropin 0.465-4. Below low normal <content Saint [Units/volume] 68 styleCode="Merline Manuel in Serum or d">Thyroid Medical Plasma by Stimulating Center Detection Hormone limit <= 0.05 </content>0.18 mIU/L 2 MIU/L L<content styleCode="Salud lics"> (0.465-4.68 MIU/L)</conten t> ID Date Data Source Urinalysis.[id number] 12/30/2019 12:23:00 PM EDT [facility] Name Value Range Interpretation Description Data Sup porting Code Source(s) Document(s ) Color of Urine YELLOW <content [facility] styleCode="Merline Manuel d">Color, Medical Urine Center </content>YELL OW <content styleCode="Salud lics"> (YELLOW )</content> Glucose NEGATIVE <content [facility] [Mass/volume] styleCode="Merline Jackson in Urine by d">Urine Medical Test strip Glucose Center </content>NEGA TIVE MG/DL<content styleCode="Salud lics"> (NEGATIVE MG/DL)</conten t> UNK CLEAR <content Saint styleCode="Merline Danielsons d">Urine Medical Clarity Center </content>JOSE MANUEL R <content styleCode="Salud lics"> (CLEAR )</content> UNK NEGATIVE <content Saint styleCode="Merline Manuel d">Urine Medical Bilirubin Center </content>NEGA TIVE <content styleCode="Salud lics"> (NEGATIVE )</content> Specific 1.015-1.02 Above high <content [facility] gravity of 5 normal styleCode="Merline Jackson Urine by Test d">Urine Medical strip Specific Center [place] </content>>= 1.030 H<content styleCode="Salud lics"> (1.015-1.025 )</content> Ketones NEGATIVE <content [facility] [Mass/volume] styleCode="Merline Jackson in Urine by d">Urine Medical Test strip Ketone Center </content>TRAC E MG/DL<content styleCode="Salud lics"> (NEGATIVE MG/DL)</conten t> Hemoglobin NEGATIVE <content [facility] [Presence] in styleCode="Merline Jackson Urine by Test d">Urine Blood Medical strip </content>NEGA Center TIVE <content styleCode="Salud lics"> (NEGATIVE )</content> Protein NEGATIVE <content [facility] [Mass/volume] styleCode="Merline Jackson in Urine by d">Urine Medical Test strip Protein Center </content>NEGA TIVE MG/DL<content styleCode="Salud lics"> (NEGATIVE MG/DL)</conten t> pH of Urine by 4.5-8.0 <content [facility] Test strip styleCode="Merline Manuel d">Urine pH Medical </content>5.5 Center <content styleCode="Salud lics"> (4.5-8.0 )</content> Urobilinogen 0.2-1.0 <content [facility] [Units/volume] styleCode="Merline Jackson in Urine by d">Urine Medical Test strip Urobilinogen Center </content>0.2 MG/DL<content styleCode="Salud lics"> (0.2-1.0 MG/DL)</conten t> Nitrite NEGATIVE <content [facility] [Presence] in styleCode="Merline Danielsons Urine by Test d">Urine Medical strip Nitrite Center </content>NEGA TIVE <content styleCode="Salud lics"> (NEGATIVE )</content> Leukocyte NEGATIVE <content [facility] esterase styleCode="Merline Danielsons [Presence] in d">Urine Medical Urine by Test Leukocyte Center strip </content>NEGA TIVE <content styleCode="Salud lics"> (NEGATIVE )</content> ID Date Data Source Liver 12/30/2019 12:23:00 PM EDT [facility] Profile.[id number] Name Value Range Interpretation Description Data Sup porting Code Source(s) Document(s ) Alanine 7-30 <content [facility] aminotransferase styleCode="Bold"> Devin hs [Enzymatic Alanine Medical activity/volume] Aminotransferase Center in Serum or Plasma (ALT) </content>25 IU/L<content styleCode="Italic s"> (7-30 IU/L)</content> Aspartate 14-36 <content [facility] aminotransferase styleCode="Bold"> Devin hs [Enzymatic Aspartate Medical activity/volume] Aminotransferase Center in Serum or Plasma (AST) </content>32 IU/L<content styleCode="Italic s"> (14-36 IU/L)</content> Albumin 3.5-5.0 <content [facility] [Mass/volume] in styleCode="Bold"> Devin hs Serum or Plasma Albumin Medical </content>4.6 Center G/DL<content styleCode="Italic s"> (3.5-5.0 G/DL)</content> Alkaline 38-126 <content [facility] phosphatase styleCode="Bold"> Manuel [Enzymatic Alkaline Medical activity/volume] Phosphatase (ALP) Cente r in Serum or Plasma </content>69 IU/L<content styleCode="Italic s"> (38-126 IU/L)</content> Bilirubin.total 0.2-1.3 Below low <content [facility] [Mass/volume] in normal styleCode="Bold"> Devin hs Serum or Plasma Bilirubin Total Medical </content>< 0.2 Center MG/DL L<content styleCode="Italic s"> (0.2-1.3 MG/DL)</content> ID Date Data Source LIPID.[id number] 12/30/2019 12:23:00 PM EDT [facility] Name Value Range Interpretation Description Data Sup porting Code Source(s) Document(s ) UNK > 60 Below low normal <content [facility] styleCode="Merline Manuel d">HDL- Medical Cholesterol Center </content>53 MG/DL L<content styleCode="Salud lics"> (> 60 MG/DL)</conten t> Triglyceride < 150 <content [facility] [Mass/volume] in styleCode="Merline Manuel Serum or Plasma d">Triglycerid [facility] es Center </content>85 MG/DL<content styleCode="Salud lics"> (< 150 MG/DL)</conten t> Cholesterol -<200 <content [facility] [Mass/volume] in styleCode="Merline Manuel Serum or Plasma d">Cholesterol Medical </content>168 Center MG/DL<content styleCode="Salud lics"> (-<200 MG/DL)</conten t> UNK < 100 <content [facility] styleCode="Merline Manuel d">LDL-Cholest [facility] jared Center </content>98 MG/DL<content styleCode="Salud lics"> (< 100 MG/DL)</conten t> ID Date Data Source Hormones.[id number] 12/30/2019 12:23:00 PM EDT [facility] Name Value Range Interpretation Description Data Sup porting Code Source(s) Document(s ) Thyrotropin 0.465-4. Below low normal <content [facility] [Units/volume] 68 styleCode="Merline Manuel in Serum or d">Thyroid Medical Plasma by Stimulating Center Detection Hormone limit <= 0.05 </content>0.17 mIU/L 8 MIU/L L<content styleCode="Salud lics"> (0.465-4.68 MIU/L)</conten t> ID Date Data Source HematologyRou.[id number] 12/30/2019 12:23:00 PM EDT [facility] 0400 Name Value Range Interpretation Description Data Sup porting Code Source(s) Document(s ) Hemoglobin 12.3-16. Below low normal <content [facility] [Mass/volume] in 0 styleCode="Bold Manuel Blood ">Hemoglobin Medical </content>11.7 Center G/DL L<content styleCode="Ital ics"> (12.3-16.0 G/DL)</content> Erythrocytes 4.0-5.1 <content Saint [#/volume] in styleCode="Bold Manuel Blood by ">Red Blood Medical Automated count Cell Count Center </content>4.08 MCUMM<content styleCode="Ital ics"> (4.0-5.1 MCUMM)</content > Leukocytes 4.4-11.0 <content Saint [#/volume] in styleCode="Bold Manuel Blood by ">White Blood Medical Automated count Cell Count Center </content>8.21 KCUMM<content styleCode="Ital ics"> (4.4-11.0 KCUMM)</content > Erythrocyte mean 32.0-37. Below low normal <content [facility] corpuscular 0 styleCode="Bold Manuel hemoglobin ">Mean Corpus. Medical concentration Hgb Center [Mass/volume] by Concentration Automated count (MCHC) </content>31.8 G/DL L<content styleCode="Ital ics"> (32.0-37.0 G/DL)</content> Erythrocyte mean 26.0-34. <content [facility] corpuscular 0 styleCode="Bold Manuel hemoglobin ">Mean Medical [Entitic mass] Corposcular Center by Automated Hemoglobin count </content>28.7 PG<content styleCode="Ital ics"> (26.0-34.0 PG)</content> Erythrocyte mean 80.0-100 <content [facility] corpuscular .0 styleCode="Bold Manuel volume [Entitic ">Mean Medical volume] by Corpuscular Center Automated count Volume </content>90.2 FL<content styleCode="Ital ics"> (80.0-100.0 FL)</content> Hematocrit 36.0-46. <content Saint [Volume 0 styleCode="Bold Manuel Fraction] of ">Hematocrit Medical Blood by </content>36.8 Center Automated count %<content styleCode="Ital ics"> (36.0-46.0 %)</content> Erythrocyte 11.5-14. <content [facility] distribution 5 styleCode="Bold Manuel width [Ratio] by ">Red Cell Medical Automated count Distribution Center Width </content>11.7 %<content styleCode="Ital ics"> (11.5-14.5 %)</content> Platelet mean 8.0-11.0 <content Saint volume [Entitic styleCode="Bold Manuel volume] in Blood ">Mean Platelet Medical by Automated Volume Center count </content>9.5 FL<content styleCode="Ital ics"> (8.0-11.0 FL)</content> Platelets 130-400 <content Saint [#/volume] in styleCode="Bold Manuel Blood by ">Platelet Medical Automated count Count Center </content>339 KCUMM<content styleCode="Ital ics"> (130-400 KCUMM)</content > UNK 1.6-7.3 <content Saint styleCode="Bold Manuel ">Neutrophil Medical Count Center </content>5.30 KCUMM<content styleCode="Ital ics"> (1.6-7.3 KCUMM)</content > Neutrophils 36-66 <content Saint [#/volume] in styleCode="Bold Manuel Blood by ">Neutrophil Medical Automated count </content>64.5 Center %<content styleCode="Ital ics"> (36-66 %)</content> Lymphocytes 24.0-44. <content Saint [#/volume] in 0 styleCode="Bold Manuel Blood by ">Lymphocyte Medical Automated count </content>24.4 Center %<content styleCode="Ital ics"> (24.0-44.0 %)</content> Eosinophils 0-5.0 <content Saint [#/volume] in styleCode="Bold Manuel Blood by ">Eosinophil Medical Automated count </content>2.7 Center %<content styleCode="Ital ics"> (0-5.0 %)</content> UNK 0.2-0.9 <content Saint styleCode="Bold Manuel ">Monocyte Medical Count Center </content>0.64 KCUMM<content styleCode="Ital ics"> (0.2-0.9 KCUMM)</content > UNK 1.0-4.8 <content Saint styleCode="Bold Manuel ">Lymphocyte Medical Count Center </content>2.00 KCUMM<content styleCode="Ital ics"> (1.0-4.8 KCUMM)</content > Monocytes 3.0-10.0 <content Saint [#/volume] in styleCode="Bold Manuel Blood by ">Monocyte Medical Automated count </content>7.8 Center %<content styleCode="Ital ics"> (3.0-10.0 %)</content> Basophils 0.0-1.0 <content Saint [#/volume] in styleCode="Bold Manuel Blood by ">Basophil Medical Automated count </content>0.4 Center %<content styleCode="Ital ics"> (0.0-1.0 %)</content> UNK 0.0-0.3 <content Saint styleCode="Bold Manuel ">Basophil Medical Count Center </content>0.03 KCUMM<content styleCode="Ital ics"> (0.0-0.3 KCUMM)</content > UNK 0.0-0.6 <content Saint styleCode="Bold Manuel ">Eosinophil Medical Count Center </content>0.22 KCUMM<content styleCode="Ital ics"> (0.0-0.6 KCUMM)</content > UNK 0-0.1 <content Saint styleCode="Bold Manuel ">Immature Medical Granulocyte Center Count </content>0.02 KCUMM<content styleCode="Ital ics"> (0-0.1 KCUMM)</content > UNK 0 <content Saint styleCode="Bold Manuel ">Nucleated Red Medical Blood Cell Center </content>0.0 /100<content styleCode="Ital ics"> (0 /100)</content> UNK 0.0 <content Saint styleCode="Bold Manuel ">Nucleated Red Medical Blood Cell Center Count </content>0.00 KCUMM<content styleCode="Ital ics"> (0.0 KCUMM)</content > UNK < 1 <content Saint styleCode="Bold Manuel ">Immature Medical Granulocyte Center Ratio </content>0.2 %<content styleCode="Ital ics"> (< 1 %)</content> ID Date Data Source GFR(Creatinine).[id number] 12/30/2019 12:23:00 PM EDT [facility] 0-0400 Name Value Range Interpretation Code Description Data Kathy rce(s) Supporting Document(s ) UNK > 60 <content [facility] styleCode="Bold"> Medical Cent er EGFR </content>119 GFR<content styleCode="Italic s"> (> 60 GFR)</content> ID Date Data Source ChemistrySpecia.[id number] 12/30/2019 12:23:00 PM EDT [facility] 0-0400 Name Value Range Interpretation Description Data Sup porting Code Source(s) Document(s ) Cobalamin 239-931 <content (Vitamin B12) styleCode="Merline Manuel [Mass/volume] d">Vitamin B12 Medical in Serum or </content>596 Center Plasma PG/ML<content styleCode="Salud lics"> (239-931 PG/ML)</conten t> ID Date Data Source CHMROUTINECCDA.[id number] 12/30/2019 12:23:00 PM EDT [facility] -0400 Name Value Range Interpretation Description Data Sup porting Code Source(s) Document(s ) UNK 4.2-5.8 Above high normal <content [place] s styleCode="Bold Medical ">Hemoglobin Center A1C </content>6.1 % H<content styleCode="Ital ics"> (4.2-5.8 %)</content> UNK >= 1.0 <content [facility] styleCode="Bold Medical ">AG Ratio Center </content>1.4 <content styleCode="Ital ics"> (>= 1.0 )</content> UNK 2.3-3.5 <content [facility] styleCode="Bold Medical ">Globulin Center </content>3.3 G/DL<content styleCode="Ital ics"> (2.3-3.5 G/DL)</content> Protein 6.3-8.2 <content [facility] [Mass/volum styleCode="Bold Medical e] in Serum ">Total Protein Center or Plasma </content>7.9 G/DL<content styleCode="Ital ics"> (6.3-8.2 G/DL)</content> ID Date Data Source [facility].[id number] 12/30/2019 12:23:00 PM EDT [facility] Name Value Range Interpretation Description Data Sup porting Code Source(s) Document(s ) Sodium 137-145 <content Saint [Moles/volume] in styleCode="Bold"> [facility] Serum or Plasma Sodium Medical </content>140 Center MEQ/L<content styleCode="Italic s"> (137-145 MEQ/L)</content> Potassium 3.5-5.3 <content Saint [Moles/volume] in styleCode="Bold"> [facility] Serum or Plasma Potassium Medical </content>4.3 Center MEQ/L<content styleCode="Italic s"> (3.5-5.3 MEQ/L)</content> UNK 7-17 Above high <content Saint normal styleCode="Bold"> [facility] BUN </content>18 Medical MG/DL H<content Center styleCode="Italic s"> (7-17 MG/DL)</content> Carbon dioxide, 22-30 <content Saint total styleCode="Bold"> Manuel [Moles/volume] in Carbon Dioxide Medical Serum or Plasma </content>29 Center MEQ/L<content styleCode="Italic s"> (22-30 MEQ/L)</content> Chloride 98-107 <content [facility] [Moles/volume] in styleCode="Bold"> [facility] Serum or Plasma Chloride Medical </content>102 Center MEQ/L<content styleCode="Italic s"> (98-107 MEQ/L)</content> Calcium 8.4-10. <content [facility] [Mass/volume] in 2 styleCode="Bold"> Devin hs Serum or Plasma Calcium Medical </content>10.0 Center MG/DL<content styleCode="Italic s"> (8.4-10.2 MG/DL)</content> Glucose 74-106 Above high <content [facility] [Mass/volume] in normal styleCode="Bold"> Devin hs Serum or Plasma Glucose Medical </content>107 Center MG/DL H<content styleCode="Italic s"> (74-106 MG/DL)</content> Creatinine 0.5-1.3 <content [facility] [Mass/volume] in styleCode="Bold"> Devin hs Serum or Plasma Creatinine Medical </content>0.7 Center MG/DL<content styleCode="Italic s"> (0.5-1.3 MG/DL)</content> Alanine 7-30 <content [facility] aminotransferase styleCode="Bold"> Devin hs [Enzymatic Alanine Medical activity/volume] Aminotransferase Center in Serum or Plasma (ALT) </content>25 IU/L<content styleCode="Italic s"> (7-30 IU/L)</content> Aspartate 14-36 <content [facility] aminotransferase styleCode="Bold"> Devin hs [Enzymatic Aspartate Medical activity/volume] Aminotransferase Center in Serum or Plasma (AST) </content>32 IU/L<content styleCode="Italic s"> (14-36 IU/L)</content> UNK > 60 <content Saint styleCode="Bold"> Manuel EGFR Medical </content>119 Center GFR<content styleCode="Italic s"> (> 60 GFR)</content> Alkaline 38-126 <content [facility] phosphatase styleCode="Bold"> Manuel [Enzymatic Alkaline Medical activity/volume] Phosphatase (ALP) Cente r in Serum or Plasma </content>69 IU/L<content styleCode="Italic s"> (38-126 IU/L)</content> Albumin 3.5-5.0 <content [facility] [Mass/volume] in styleCode="Bold"> Devin hs Serum or Plasma Albumin Medical </content>4.6 Center G/DL<content styleCode="Italic s"> (3.5-5.0 G/DL)</content> Bilirubin.total 0.2-1.3 Below low <content Saint [Mass/volume] in normal styleCode="Bold"> Devin hs Serum or Plasma Bilirubin Total Medical </content>< 0.2 Center MG/DL L<content styleCode="Italic s"> (0.2-1.3 MG/DL)</content> ID Date Data Source [id number] 11/03/2019 03:36:00 PM EST NEXTG EN ([facility] [id number] [place]) Name Value Range Interpretation Code Description Data Kathy rce(s) Supporting Document(s ) NON-REACTI NON-REACTI RPR [facility] ([facility]) The Macro-Tin RPR (Rapid Plasma Reagin) 18mm [place] Card Test is anontreponemal testing procedure for the serologic dete ction of syphilis.

ID Date Data Source [id number] 11/03/2019 03:36:00 PM EST [facility]EXT[facility] EN ([facility] [id number] [place]) Name Value Range Interpretation Code Description Data Kathy rce(s) Supporting Document(s ) NON-REACTI NON-REACTI HIV [facility]bo [facility]) The Anti HIV 1 +2 test is not intended f or blood donor screening, or forindividuals less than 2 years old.This test was run using Qosmos0immunodiagnostic system.The result if reactive is PRELIMINARY, aconf irmatory test will follow and this confirmatory result MUST beconsidered in conjunction with other serologic evidence and clinicalinformation in the diagnosis of infection with HIV-1 and/or HIV-2 inpersons with signs, or symptoms or ris k of HIV infection.The HIV 1 & 2 test does not distinguish between HIV-1 p24, HIV-1 antibodydetection, or HIV-2 antibody detection

ID Date Data Source [id number] 11/03/2019 03:36:00 PM EST [facility]EXT[facility] EN ([facility] [id number] [place]) Name Value Range Interpretation Code Description Data Kathy rce(s) Supporting Document(s ) 38.10 index Above high normal HSV 1 IGG AB [facility] Index Interpretation----- <0.90 Negative0.90-1.09 Equivocal>1.09 PositiveThis assay utilizes recombinant type-specific antigensto dif ferentiate HSV-1 from HSV-2 infections. A positiveresult cannot distinguish betwee n recent and pastinfection. If recent HSV infection is suspected but theresults ar e negative or equivocal, the assay should berepeated in 4-6 weeks. The performance characteristicsof the assay have not been established for pediatricpopulations, im mune-compromised patients, or neonatalscreening.For additional informa tion, please refer [email or web address] faq/[email or web address](This link is being provided for informational/educationalpurposes only.)

<0.90 HSV 2 IGG AB [facility]EXTGEN ([facility]) Index Interpretation----- <0.90 Negative0.90-1.09 Equivocal>1.09 PositiveThis assay utilizes recombinant type-specific antigensto dif ferentiate HSV-1 from HSV-2 infections. A positiveresult cannot distinguish betwee n recent and pastinfection. If recent HSV infection is suspected but theresults ar e negative or equivocal, the assay should berepeated in 4-6 weeks. The performance characteristicsof the assay have not been established for pediatricpopulations, im mune-compromised patients, or neonatalscreening.For additional informa tion, please refer [email or web address]/ faq/[email or web address](This link is being provided for informational/educationalpurposes only.) For additional information, please refer [email or web address] [email or web address](This link is being provided for informational/educationalpurposes only.)

ID Date Data Source [id number] 11/03/2019 03:05:00 PM EST [facility]EXT[facility] EN ([facility] [id number] [place]) Name Value Range Interpretation Code Description Data Kathy rce(s) Supporting Document(s ) FINAL REPORT STATUS [facility] ([facility]) SEE NOTE STATEMENT OF [facility] ([facility]) Satisfactory for evaluation.Endocervical /transformation zone componentpresent.Age and/or menstrual status not provided<br/ >
SEE NOTE ThinPrep INTERPRETATION [facility] N ([facility]) Negative for intraepithelial lesion or m alignancy.

SEE NOTE BIOCHEMISTRY SPECIALIST YEIMY ([facility]) [facility], CT(ASCP)CT screening location: [place], [place] [address]Explanatory Note:The Pap is a scree traan test for cervical cancer. It is not adiagnostic test and is subject to false negative and false positiveresults. It is most reliable when a satisfactory sample , regularlyobtained, is submitted with relevant clinical findings and history,a nd when the Pap result is evaluated along with historic and currentclinical inform ation.

ID Date Data Source [id number] 11/03/2019 03:05:00 PM EST NEXTG EN ([facility] [id number] [place]) Name Value Range Interpretation Code Description Data Supporting Source(s) Document(s ) SEE NOTE ThinPrep [facility] INTERPRETATION ([facility]) Negative for intraepithelial lesion or m alignancy.

FINAL REPORT STATUS NEXTGEN ([facility]) SEE NOTE STATEMENT OF ADEQUACY [facility] ([facility]) Satisfactory for evaluation.Endocervical /transformation zone componentpresent.Age and/or menstrual status not provided<br/ >
SEE NOTE BIOCHEMISTRY SPECIALIST [facility]) [facility], CT(ASCP)CT screening location: [place], [place] [address]Explanatory Note:The Pap is a scree taran test for cervical cancer. It is not adiagnostic test and is subject to false negative and false positiveresults. It is most reliable when a satisfactory sample , regularlyobtained, is submitted with relevant clinical findings and history,a nd when the Pap result is evaluated along with historic and currentclinical inform ation.

ID Date Data Source Hormones.[id number] 10/11/2019 06:12:00 PM EST [facility] Name Value Range Interpretation Description Data Sup porting Code Source(s) Document(s ) Thyroxine (T4) 0.78-2.1 <content [facility] free 9 styleCode="Merline Manuel [Mass/volume] d">T4 Free Medical in Serum or </content>1.27 Center Plasma NG/DL<content styleCode="Salud lics"> (0.78-2.19 NG/DL)</conten t> UNK -<140 <content [facility] styleCode="Merline Manuel d">Thyroid Medical Stimulating IG Center </content><89 % bas<content styleCode="Salud lics"> (-<140 % bas)</content> Thyrotropin 0.465-4. <content [facility] [Units/volume] 68 styleCode="Merline Manuel in Serum or d">Thyroid Medical Plasma by Stimulating Center Detection Hormone limit <= 0.05 </content>0.55 mIU/L 3 MIU/L<content styleCode="Salud lics"> (0.465-4.68 MIU/L)</conten t> ID Date Data Source Liver 10/05/2019 12:17:00 PM EST [facility] Profile.[id number] Name Value Range Interpretation Description Data Sup porting Code Source(s) Document(s ) Aspartate 14-36 <content [facility] aminotransferase styleCode="Bold"> Devin hs [Enzymatic Aspartate Medical activity/volume] Aminotransferase Center in Serum or Plasma (AST) </content>25 IU/L<content styleCode="Italic s"> (14-36 IU/L)</content> Alanine 7-30 <content [facility] aminotransferase styleCode="Bold"> Devin hs [Enzymatic Alanine Medical activity/volume] Aminotransferase Center in Serum or Plasma (ALT) </content>18 IU/L<content styleCode="Italic s"> (7-30 IU/L)</content> Alkaline 38-126 <content [facility] phosphatase styleCode="Bold"> [facility] [Enzymatic Alkaline Medical activity/volume] Phosphatase (ALP) Cente r in Serum or Plasma </content>60 IU/L<content styleCode="Italic s"> (38-126 IU/L)</content> Bilirubin.total 0.2-1.3 Below low <content [facility] [Mass/volume] in normal styleCode="Bold"> Devin hs Serum or Plasma Bilirubin Total Medical </content>< 0.2 Center MG/DL L<content styleCode="Italic s"> (0.2-1.3 MG/DL)</content> Albumin 3.5-5.0 <content [facility] [Mass/volume] in styleCode="Bold"> Devin hs Serum or Plasma Albumin Medical </content>4.3 Center G/DL<content styleCode="Italic s"> (3.5-5.0 G/DL)</content> ID Date Data Source LIPID.[id number] 10/05/2019 12:17:00 PM EST [facility] Name Value Range Interpretation Description Data Sup porting Code Source(s) Document(s ) Triglyceride < 150 Above high normal <content [facility] [Mass/volume] in styleCode="[facility] Serum or Plasma d">Triglycerid Medical Center </content>154 MG/DL H<content styleCode="Salud lics"> (< 150 MG/DL)</conten t> UNK < 100 Above high normal <content Saint styleCode="Merline Manuel d">LDL-Cholest [facility] jared Center </content>111 MG/DL H<content styleCode="Salud lics"> (< 100 MG/DL)</conten t> Cholesterol -<200 <content [facility] [Mass/volume] in styleCode="Merline Manuel Serum or Plasma d">Cholesterol Medical </content>194 Center MG/DL<content styleCode="Salud lics"> (-<200 MG/DL)</conten t> UNK > 60 Below low normal <content [facility] styleCode="Merline Manuel d">HDL- Medical Cholesterol Center </content>52 MG/DL L<content styleCode="Salud lics"> (> 60 MG/DL)</conten t> ID Date Data Source Hormones.[id number] 10/05/2019 12:17:00 PM [facility] Name Value Range Interpretation Description Data Sup porting Code Source(s) Document(s ) Thyrotropin 0.465-4. Below low normal <content [facility] [Units/volume] 68 styleCode="Merline [facility] in Serum or d">Thyroid Medical Plasma by Stimulating Center Detection Hormone limit <= 0.05 </content>0.42 mIU/L 9 MIU/L L<content styleCode="Salud lics"> (0.465-4.68 MIU/L)</conten t> ID Date Data Source HematologyRou.[id number] 10/05/2019 12:17:00 PM EST [facility] 0500 Name Value Range Interpretation Description Data Sup porting Code Source(s) Document(s ) Leukocytes 4.4-11.0 <content [facility] [#/volume] in styleCode="Bold [facility] Blood by ">White Blood Medical Automated count Cell Count Center </content>8.69 KCUMM<content styleCode="Ital ics"> (4.4-11.0 KCUMM)</content > Erythrocytes 4.0-5.1 <content [facility] [#/volume] in styleCode="Bold Manuel Blood by ">Red Blood Medical Automated count Cell Count Center </content>4.02 MCUMM<content styleCode="Ital ics"> (4.0-5.1 MCUMM)</content > Hematocrit 36.0-46. Below low normal <content [facility] [Volume 0 styleCode="Bold Manuel Fraction] of ">Hematocrit Medical Blood by </content>35.9 Center Automated count % L<content styleCode="Ital ics"> (36.0-46.0 %)</content> Hemoglobin 12.3-16. Below low normal <content [facility] [Mass/volume] in 0 styleCode="Bold Manuel Blood ">Hemoglobin Medical </content>11.8 Center G/DL L<content styleCode="Ital ics"> (12.3-16.0 G/DL)</content> Erythrocyte mean 80.0-100 <content [facility] corpuscular .0 styleCode="Bold Manuel volume [Entitic ">Mean Medical volume] by Corpuscular Center Automated count Volume </content>89.3 FL<content styleCode="Ital ics"> (80.0-100.0 FL)</content> Erythrocyte mean 32.0-37. <content [facility] corpuscular 0 styleCode="Bold Manuel hemoglobin ">Mean Corpus. Medical concentration Hgb Center [Mass/volume] by Concentration Automated count (MCHC) </content>32.9 G/DL<content styleCode="Ital ics"> (32.0-37.0 G/DL)</content> Erythrocyte 11.5-14. <content [facility] distribution 5 styleCode="Bold Manuel width [Ratio] by ">Red Cell Medical Automated count Distribution Center Width </content>11.9 %<content styleCode="Ital ics"> (11.5-14.5 %)</content> Erythrocyte mean 26.0-34. <content [facility] corpuscular 0 styleCode="Bold Manuel hemoglobin ">Mean Medical [Entitic mass] Corposcular Center by Automated Hemoglobin count </content>29.4 PG<content styleCode="Ital ics"> (26.0-34.0 PG)</content> Platelets 130-400 <content [facility] [#/volume] in styleCode="Bold Manuel Blood by ">Platelet Medical Automated count Count Center </content>337 KCUMM<content styleCode="Ital ics"> (130-400 KCUMM)</content > Neutrophils 36-66 <content [facility] [#/volume] in styleCode="Bold Manuel Blood by ">Neutrophil Medical Automated count </content>53.0 Center %<content styleCode="Ital ics"> (36-66 %)</content> Platelet mean 8.0-11.0 <content [facility] volume [Entitic styleCode="Bold Manuel volume] in Blood ">Mean Platelet Medical by Automated Volume Center count </content>9.5 FL<content styleCode="Ital ics"> (8.0-11.0 FL)</content> Lymphocytes 24.0-44. <content [facility] [#/volume] in 0 styleCode="Bold Manuel Blood by ">Lymphocyte Medical Automated count </content>34.3 Center %<content styleCode="Ital ics"> (24.0-44.0 %)</content> UNK 1.6-7.3 <content [facility] styleCode="Bold Manuel ">Neutrophil Medical Count Center </content>4.60 KCUMM<content styleCode="Ital ics"> (1.6-7.3 KCUMM)</content > UNK 1.0-4.8 <content [facility] styleCode="Bold Manuel ">Lymphocyte Medical Count Center </content>2.98 KCUMM<content styleCode="Ital ics"> (1.0-4.8 KCUMM)</content > Monocytes 3.0-10.0 <content [facility] [#/volume] in styleCode="Bold Manuel Blood by ">Monocyte Medical Automated count </content>7.9 Center %<content styleCode="Ital ics"> (3.0-10.0 %)</content> UNK 0.2-0.9 <content [facility] styleCode="Bold Manuel ">Monocyte Medical Count Center </content>0.69 KCUMM<content styleCode="Ital ics"> (0.2-0.9 KCUMM)</content > UNK 0.0-0.6 <content [facility] styleCode="Bold Manuel ">Eosinophil Medical Count Center </content>0.34 KCUMM<content styleCode="Ital ics"> (0.0-0.6 KCUMM)</content > Eosinophils 0-5.0 <content [facility] [#/volume] in styleCode="Bold Manuel Blood by ">Eosinophil Medical Automated count </content>3.9 Center %<content styleCode="Ital ics"> (0-5.0 %)</content> UNK 0 <content [facility] styleCode="Bold Manuel ">Nucleated Red Medical Blood Cell Center </content>0.0 /100<content styleCode="Ital ics"> (0 /100)</content> Basophils 0.0-1.0 <content [facility] [#/volume] in styleCode="Bold Manuel Blood by ">Basophil Medical Automated count </content>0.7 Center %<content styleCode="Ital ics"> (0.0-1.0 %)</content> UNK 0.0-0.3 <content [facility] styleCode="Bold Manuel ">Basophil Medical Count Center </content>0.06 KCUMM<content styleCode="Ital ics"> (0.0-0.3 KCUMM)</content > UNK 0-0.1 <content [facility] styleCode="Bold Manuel ">Immature Medical Granulocyte Center Count </content>0.02 KCUMM<content styleCode="Ital ics"> (0-0.1 KCUMM)</content > UNK 0.0 <content [facility] styleCode="Bold Manuel ">Nucleated Red Medical Blood Cell Center Count </content>0.00 KCUMM<content styleCode="Ital ics"> (0.0 KCUMM)</content > UNK < 1 <content [facility] styleCode="Bold Manuel ">Immature Medical Granulocyte Center Ratio </content>0.2 %<content styleCode="Ital ics"> (< 1 %)</content> ID Date Data Source GFR(Creatinine).[id number] 10/05/2019 12:17:00 PM EST [facility] 0-0500 Name Value Range Interpretation Code Description Data Kathy rce(s) Supporting Document(s ) UNK > 60 <content [facility] styleCode="Bold"> Medical Cent er EGFR </content>119 GFR<content styleCode="Italic s"> (> 60 GFR)</content> ID Date Data Source STEVEN.[id number] 10/05/2019 12:17:00 PM EST [facility] -[facility]00 Name Value Range Interpretation Description Data Sup porting Code Source(s) Document(s ) UNK 2.3-3.5 <content [facility] styleCode="Bold Medical ">Globulin Center </content>3.4 G/DL<content styleCode="Ital ics"> (2.3-3.5 G/DL)</content> UNK >= 1.0 <content [facility] styleCode="Bold Medical ">AG Ratio Center </content>1.3 <content styleCode="Ital ics"> (>= 1.0 )</content> Protein 6.3-8.2 <content [facility] [Mass/volum styleCode="Bold Medical e] in Serum ">Total Protein Center or Plasma </content>7.7 G/DL<content styleCode="Ital ics"> (6.3-8.2 G/DL)</content> UNK 4.2-5.8 Above high normal <content [facility] styleCode="Bold Medical ">Hemoglobin Center A1C </content>6.2 % H<content styleCode="Ital ics"> (4.2-5.8 %)</content> ID Date Data Source BMP.[id number] 10/05/2019 12:17:00 PM EST [facility] Name Value Range Interpretation Description Data Sup porting Code Source(s) Document(s ) Chloride 98-107 <content [facility] [Moles/volume] in styleCode="Bold"> [facility] Serum or Plasma Chloride Medical </content>102 Center MEQ/L<content styleCode="Italic s"> (98-107 MEQ/L)</content> Sodium 137-145 <content [facility] [Moles/volume] in styleCode="Bold"> [facility] Serum or Plasma Sodium Medical </content>138 Center MEQ/L<content styleCode="Italic s"> (137-145 MEQ/L)</content> Potassium 3.5-5.3 <content [facility] [Moles/volume] in styleCode="Bold"> [facility] Serum or Plasma Potassium Medical </content>4.1 Center MEQ/L<content styleCode="Italic s"> (3.5-5.3 MEQ/L)</content> Creatinine 0.5-1.3 <content [facility] [Mass/volume] in styleCode="Bold"> Devin hs Serum or Plasma Creatinine Medical </content>0.7 Center MG/DL<content styleCode="Italic s"> (0.5-1.3 MG/DL)</content> Carbon dioxide, 22-30 <content [facility] total styleCode="Bold"> Manuel [Moles/volume] in Carbon Dioxide Medical Serum or Plasma </content>28 Center MEQ/L<content styleCode="Italic s"> (22-30 MEQ/L)</content> UNK 7-17 Above high <content [facility] normal styleCode="Bold"> Manuel BUN </content>21 Medical MG/DL H<content Center styleCode="Italic s"> (7-17 MG/DL)</content> Glucose 74-106 Above high <content [facility] [Mass/volume] in normal styleCode="Bold"> Devin hs Serum or Plasma Glucose Medical </content>140 Center MG/DL H<content styleCode="Italic s"> (74-106 MG/DL)</content> Aspartate 14-36 <content [facility] aminotransferase styleCode="Bold"> Devin hs [Enzymatic Aspartate Medical activity/volume] Aminotransferase Center in Serum or Plasma (AST) </content>25 IU/L<content styleCode="Italic s"> (14-36 IU/L)</content> Calcium 8.4-10. <content [facility] [Mass/volume] in 2 styleCode="Bold"> Devin hs Serum or Plasma Calcium Medical </content>9.6 Center MG/DL<content styleCode="Italic s"> (8.4-10.2 MG/DL)</content> UNK > 60 <content [facility] styleCode="Bold"> [facility] EGFR Medical </content>119 Center GFR<content styleCode="Italic s"> (> 60 GFR)</content> Alanine 7-30 <content [facility] aminotransferase styleCode="Bold"> Devin hs [Enzymatic Alanine Medical activity/volume] Aminotransferase Center in Serum or Plasma (ALT) </content>18 IU/L<content styleCode="Italic s"> (7-30 IU/L)</content> Albumin 3.5-5.0 <content [facility] [Mass/volume] in styleCode="Bold"> Devin hs Serum or Plasma Albumin Medical </content>4.3 Center G/DL<content styleCode="Italic s"> (3.5-5.0 G/DL)</content> Bilirubin.total 0.2-1.3 Below low <content [facility] [Mass/volume] in normal styleCode="Bold"> Devin hs Serum or Plasma Bilirubin Total Medical </content>< 0.2 Center MG/DL L<content styleCode="Italic s"> (0.2-1.3 MG/DL)</content> Alkaline 38-126 <content [facility] phosphatase styleCode="Bold"> [facility] [Enzymatic Alkaline Medical activity/volume] Phosphatase (ALP) Cente r in Serum or Plasma </content>60 IU/L<content styleCode="Italic s"> (38-126 IU/L)</content> ID Date Data Source Urinalysis.[id number] 07/31/2019 02:54:00 PM EDT Matt nt [facility] 0 Name Value Range Interpretation Description Data Sup porting Code Source(s) Document(s ) UNK CLEAR <content [facility] styleCode="Merline [facility] d">Urine Medical Clarity Center </content>JOSE MANUEL R <content styleCode="Salud lics"> (CLEAR )</content> Color of Urine YELLOW <content [facility] styleCode="Merline Manuel d">Color, Medical Urine Center </content>YELL OW <content styleCode="Salud lics"> (YELLOW )</content> Glucose NEGATIVE <content [facility] [Mass/volume] styleCode="Merline Manuel in Urine by d">Urine Medical Test strip Glucose Center </content>NEGA TIVE MG/DL<content styleCode="Salud lics"> (NEGATIVE MG/DL)</conten t> UNK NEGATIVE <content [facility] styleCode="Merline Manuel d">Urine Medical Bilirubin Center </content>NEGA TIVE <content styleCode="Salud lics"> (NEGATIVE )</content> Ketones NEGATIVE <content [facility] [Mass/volume] styleCode="Merline Manuel in Urine by d">Urine Medical Test strip Ketone Center </content>NEGA TIVE MG/DL<content styleCode="Salud lics"> (NEGATIVE MG/DL)</conten t> Specific 1.015-1.02 Below low normal <content [facility] gravity of 5 styleCode="Merline Danielsons Urine by Test d">Urine Medical strip Specific Center Connelly </content>1.01 0 L<content styleCode="Salud lics"> (1.015-1.025 )</content> Hemoglobin NEGATIVE <content [facility] [Presence] in styleCode="Merline Danielsons Urine by Test d">Urine Blood Medical strip </content>NEGA Center TIVE <content styleCode="Salud lics"> (NEGATIVE )</content> Urobilinogen 0.2-1.0 <content [facility] [Units/volume] styleCode="Merline Manuel in Urine by d">Urine Medical Test strip Urobilinogen Center </content>1.0 MG/DL<content styleCode="Salud lics"> (0.2-1.0 MG/DL)</conten t> pH of Urine by 4.5-8.0 <content [facility] Test strip styleCode="Merline Manuel d">Urine pH Medical </content>6.0 Center <content styleCode="Salud lics"> (4.5-8.0 )</content> Protein NEGATIVE <content [facility] [Mass/volume] styleCode="Merline Jackson in Urine by d">Urine Medical Test strip Protein Center </content>NEGA TIVE MG/DL<content styleCode="Salud lics"> (NEGATIVE MG/DL)</conten t> Leukocyte NEGATIVE <content [facility] esterase styleCode="Merline Jackson [Presence] in d">Urine Medical Urine by Test Leukocyte Center strip </content>SMAL L <content styleCode="Salud lics"> (NEGATIVE )</content> Nitrite NEGATIVE <content [facility] [Presence] in styleCode="Merline Jackson Urine by Test d">Urine Medical strip Nitrite Center </content>NEGA TIVE <content styleCode="Salud lics"> (NEGATIVE )</content> UNK 0-3 <content [facility] styleCode="Merline Danielsons d">Urine Red Medical Blood Cell Center </content>0-3 HPF<content styleCode="Salud lics"> (0-3 HPF)</content> UNK 0-3 <content [facility] styleCode="Merline Danielsons d">Urine White Medical Blood Cell Center </content>5 - 10 HPF<content styleCode="Salud lics"> (0-3 HPF)</content> UNK NONE SEEN <content [facility] styleCode="Merline Danielsons d">Epithelial Medical Cell Center </content>10 - 20 HPF<content styleCode="Salud lics"> (NONE SEEN HPF)</content> ID Date Data Source Microbiology.[id number] 07/31/2019 02:54:00 PM EDT Matt [facility] 400 Name Value Range Interpretation Code Description Data Kathy rce(s) Supporting Document(s ) UNK <item><content [facility] styleCode="Bold"> Medical Cent er Culture Status </content>
<t able><tbody><tr>< td>Specimen Number:</td><td>[id number]</td></tr ><tr><td>Sample Collection Date/Time: </td><td>07/31/20 19 2:54 PM</td></tr><tr>< td>Specimen Source:</td><td>U RINE</td></tr><tr ><td>Culture Status:</td><td>F inal </td></tr><tr><td >Culture Report:</td><td>N O GROWTH </td></tr><tr><td >Urine Culture:</td><td> Collection Plate Date: 07/31/2019 15:00 </td></tr></tbody ></table></item> UNK <item><content [facility] styleCode="Bold"> Medical [facility] Culture Report </content>
<t able><tbody><tr>< td>Specimen Number:</td><td>[id number]</td></tr ><tr><td>Sample Collection Date/Time: </td><td>07/31/20 2:54 PM</td></tr><tr>< td>Specimen Source:</td><td>U RINE</td></tr><tr ><td>Urine Culture:</td><td> Collection Plate Date: 07/31/2019 15:00 </td></tr><tr><td >Culture Status:</td><td>F inal </td></tr><tr><td >Culture Report:</td><td>N O GROWTH </td></tr></tbody ></table></item> ID Date Data Source Urinalysis.[id number] 06/23/2019 06:50:00 PM EDT Matt [facility] 0 Name Value Range Interpretation Description Data Sup porting Code Source(s) Document(s ) Color of Urine YELLOW <content [facility] styleCode="Merline Manuel d">Color, [facility] Urine Center </content>YELL OW <content styleCode="Salud lics"> (YELLOW )</content> UNK CLEAR <content [facility] styleCode="Merline Manuel d">Urine Medical Clarity Center </content>JOSE MANUEL R <content styleCode="Salud lics"> (CLEAR )</content> Glucose NEGATIVE <content [facility] [Mass/volume] styleCode="Merline Danielsons in Urine by d">Urine Medical Test strip Glucose Center </content>NEGA TIVE MG/DL<content styleCode="Salud lics"> (NEGATIVE MG/DL)</conten t> UNK NEGATIVE <content [facility] styleCode="Merline Danielsons d">Urine Medical Bilirubin Center </content>NEGA TIVE <content styleCode="Salud lics"> (NEGATIVE )</content> Ketones NEGATIVE <content [facility] [Mass/volume] styleCode="Merline Danielsons in Urine by d">Urine Medical Test strip Ketone Center </content>NEGA TIVE MG/DL<content styleCode="Salud lics"> (NEGATIVE MG/DL)</conten t> Specific 1.015-1.02 Below low normal <content [facility] gravity of 5 styleCode="Merline Danielsons Urine by Test d">Urine Medical strip Specific Center [place] </content><= 1.005 L<content styleCode="Salud lics"> (1.015-1.025 )</content> Hemoglobin NEGATIVE <content [facility] [Presence] in styleCode="Merline Danielsons Urine by Test d">Urine Blood Medical strip </content>NEGA Center TIVE <content styleCode="Salud lics"> (NEGATIVE )</content> pH of Urine by 4.5-8.0 <content [facility] Test strip styleCode="Merline Danielsons d">Urine pH Medical </content>6.0 Center <content styleCode="Salud lics"> (4.5-8.0 )</content> Protein NEGATIVE <content [facility] [Mass/volume] styleCode="Merline Danielsons in Urine by d">Urine Medical Test strip Protein Center </content>NEGA TIVE MG/DL<content styleCode="Salud lics"> (NEGATIVE MG/DL)</conten t> Urobilinogen 0.2-1.0 <content [facility] [Units/volume] styleCode="Merline Jackson in Urine by d">Urine Medical Test strip Urobilinogen Center </content>0.2 MG/DL<content styleCode="Salud lics"> (0.2-1.0 MG/DL)</conten t> Nitrite NEGATIVE <content [facility] [Presence] in styleCode="Merline Jackson Urine by Test d">Urine Medical strip Nitrite Center </content>NEGA TIVE <content styleCode="Salud lics"> (NEGATIVE )</content> Leukocyte NEGATIVE <content [facility] esterase styleCode="Merline Jackson [Presence] in d">Urine Medical Urine by Test Leukocyte Center strip </content>NEGA TIVE <content styleCode="Salud lics"> (NEGATIVE )</content> ID Date Data Source Liver 06/23/2019 06:50:00 PM [facility] Profile.[id number] Name Value Range Interpretation Description Data Sup porting Code Source(s) Document(s ) Alanine 7-30 <content [facility] aminotransferase styleCode="Bold"> Devin hs [Enzymatic Alanine Medical activity/volume] Aminotransferase Center in Serum or Plasma (ALT) </content>16 IU/L<content styleCode="Italic s"> (7-30 IU/L)</content> Aspartate 14-36 <content [facility] aminotransferase styleCode="Bold"> Devin hs [Enzymatic Aspartate Medical activity/volume] Aminotransferase Center in Serum or Plasma (AST) </content>30 IU/L<content styleCode="Italic s"> (14-36 IU/L)</content> Alkaline 38-126 <content [facility] phosphatase styleCode="Bold"> Manuel [Enzymatic Alkaline Medical activity/volume] Phosphatase (ALP) Cente r in Serum or Plasma </content>57 IU/L<content styleCode="Italic s"> (38-126 IU/L)</content> Bilirubin.total 0.2-1.3 <content [facility] [Mass/volume] in styleCode="Bold"> Devin hs Serum or Plasma Bilirubin Total Medical </content>0.6 Center MG/DL<content styleCode="Italic s"> (0.2-1.3 MG/DL)</content> Albumin 3.5-5.0 <content [facility] [Mass/volume] in styleCode="Bold"> Devin hs Serum or Plasma Albumin Medical </content>4.5 Center G/DL<content styleCode="Italic s"> (3.5-5.0 G/DL)</content> ID Date Data Source HematologyRou.[id number] 06/23/2019 06:50:00 PM EDT Matt [facility] 0400 Name Value Range Interpretation Description Data Sup porting Code Source(s) Document(s ) Leukocytes 4.4-11.0 <content [facility] [#/volume] in styleCode="Bold Manuel Blood by ">White Blood Medical Automated count Cell Count Center </content>10.15 KCUMM<content styleCode="Ital ics"> (4.4-11.0 KCUMM)</content > Erythrocytes 4.0-5.1 <content [facility] [#/volume] in styleCode="Bold Manuel Blood by ">Red Blood Medical Automated count Cell Count Center </content>4.52 MCUMM<content styleCode="Ital ics"> (4.0-5.1 MCUMM)</content > Hemoglobin 12.3-16. <content [facility] [Mass/volume] in 0 styleCode="Bold Manuel Blood ">Hemoglobin Medical </content>13.1 Center G/DL<content styleCode="Ital ics"> (12.3-16.0 G/DL)</content> Hematocrit 36.0-46. <content [facility] [Volume 0 styleCode="Bold Manuel Fraction] of ">Hematocrit Medical Blood by </content>39.5 Center Automated count %<content styleCode="Ital ics"> (36.0-46.0 %)</content> Erythrocyte mean 80.0-100 <content [facility] corpuscular .0 styleCode="Bold Manuel volume [Entitic ">Mean Medical volume] by Corpuscular Center Automated count Volume </content>87.4 FL<content styleCode="Ital ics"> (80.0-100.0 FL)</content> Erythrocyte mean 32.0-37. <content [facility] corpuscular 0 styleCode="Bold Manuel hemoglobin ">Mean Corpus. Medical concentration Hgb Center [Mass/volume] by Concentration Automated count (MCHC) </content>33.2 G/DL<content styleCode="Ital ics"> (32.0-37.0 G/DL)</content> Erythrocyte mean 26.0-34. <content [facility] corpuscular 0 styleCode="Bold Manuel hemoglobin ">Mean Medical [Entitic mass] Corposcular Center by Automated Hemoglobin count </content>29.0 PG<content styleCode="Ital ics"> (26.0-34.0 PG)</content> Erythrocyte 11.5-14. <content [facility] distribution 5 styleCode="Bold Manuel width [Ratio] by ">Red Cell Medical Automated count Distribution Center Width </content>13.1 %<content styleCode="Ital ics"> (11.5-14.5 %)</content> Neutrophils 36-66 <content [facility] [#/volume] in styleCode="Bold Manuel Blood by ">Neutrophil Medical Automated count </content>54.9 Center %<content styleCode="Ital ics"> (36-66 %)</content> Platelets 130-400 <content [facility] [#/volume] in styleCode="Bold Manuel Blood by ">Platelet Medical Automated count Count Center </content>283 KCUMM<content styleCode="Ital ics"> (130-400 KCUMM)</content > Platelet mean 8.0-11.0 <content [facility] volume [Entitic styleCode="Bold Manuel volume] in Blood ">Mean Platelet Medical by Automated Volume Center count </content>9.6 FL<content styleCode="Ital ics"> (8.0-11.0 FL)</content> UNK 1.6-7.3 <content [facility] styleCode="Bold Manuel ">Neutrophil Medical Count Center </content>5.58 KCUMM<content styleCode="Ital ics"> (1.6-7.3 KCUMM)</content > UNK 1.0-4.8 <content [facility] styleCode="Bold Manuel ">Lymphocyte Medical Count Center </content>3.34 KCUMM<content styleCode="Ital ics"> (1.0-4.8 KCUMM)</content > Lymphocytes 24.0-44. <content [facility] [#/volume] in 0 styleCode="Bold Manuel Blood by ">Lymphocyte Medical Automated count </content>32.9 Center %<content styleCode="Ital ics"> (24.0-44.0 %)</content> UNK 0.2-0.9 Above high <content [facility] normal styleCode="Bold Manuel ">Monocyte Medical Count Center </content>0.98 KCUMM H<content styleCode="Ital ics"> (0.2-0.9 KCUMM)</content > Eosinophils 0-5.0 <content [facility] [#/volume] in styleCode="Bold Manuel Blood by ">Eosinophil Medical Automated count </content>1.8 Center %<content styleCode="Ital ics"> (0-5.0 %)</content> Monocytes 3.0-10.0 <content [facility] [#/volume] in styleCode="Bold Manuel Blood by ">Monocyte Medical Automated count </content>9.7 Center %<content styleCode="Ital ics"> (3.0-10.0 %)</content> UNK 0.0-0.3 <content [facility] styleCode="Bold Manuel ">Basophil Medical Count Center </content>0.04 KCUMM<content styleCode="Ital ics"> (0.0-0.3 KCUMM)</content > Basophils 0.0-1.0 <content [facility] [#/volume] in styleCode="Bold Manuel Blood by ">Basophil Medical Automated count </content>0.4 Center %<content styleCode="Ital ics"> (0.0-1.0 %)</content> UNK 0.0-0.6 <content [facility] styleCode="Bold Manuel ">Eosinophil Medical Count Center </content>0.18 KCUMM<content styleCode="Ital ics"> (0.0-0.6 KCUMM)</content > UNK 0-0.1 <content [facility] styleCode="Bold Manuel ">Immature Medical Granulocyte Center Count </content>0.03 KCUMM<content styleCode="Ital ics"> (0-0.1 KCUMM)</content > UNK 0 <content [facility] styleCode="Bold Manuel ">Nucleated Red Medical Blood Cell Center </content>0.0 /100<content styleCode="Ital ics"> (0 /100)</content> UNK 0.0 <content [facility] styleCode="Bold Manuel ">Nucleated Red Medical Blood Cell Center Count </content>0.00 KCUMM<content styleCode="Ital ics"> (0.0 KCUMM)</content > UNK < 1 <content [facility] styleCode="Bold Manuel ">Immature Medical Granulocyte Center Ratio </content>0.3 %<content styleCode="Ital ics"> (< 1 %)</content> ID Date Data Source GFR(Creatinine).[id number] 06/23/2019 06:50:00 PM EDT [facility] 0-0400 Name Value Range Interpretation Code Description Data Kathy rce(s) Supporting Document(s ) UNK > 60 <content [facility] styleCode="Bold"> Medical Cent er EGFR </content>117 GFR<content styleCode="Italic s"> (> 60 GFR)</content> ID Date Data Source CHMROUTINECCDA.[id number] 06/23/2019 06:50:00 PM EDT [facility] -[facility] Name Value Range Interpretation Description Data Sup porting Code Source(s) Document(s ) UNK >= 1.0 <content [facility] styleCode="Bold Medical ">AG Ratio Center </content>1.2 <content styleCode="Ital ics"> (>= 1.0 )</content> Protein 6.3-8.2 Above high normal <content [place] [facility] [Mass/volum styleCode="Bold Medical e] in Serum ">Total Protein Center or Plasma </content>8.4 G/DL H<content styleCode="Ital ics"> (6.3-8.2 G/DL)</content> UNK 2.3-3.5 Above high normal <content [place] [facility] styleCode="Bold Medical ">Globulin Center </content>3.9 G/DL H<content styleCode="Ital ics"> (2.3-3.5 G/DL)</content> ID Date Data Source [facility].[id number] 06/23/2019 06:50:00 PM EDT [facility] Name Value Range Interpretation Description Data Sup porting Code Source(s) Document(s ) Sodium 137-145 <content [facility] [Moles/volume] in styleCode="Bold"> [facility] Serum or Plasma Sodium Medical </content>140 Center MEQ/L<content styleCode="Italic s"> (137-145 MEQ/L)</content> Potassium 3.5-5.3 <content [facility] [Moles/volume] in styleCode="Bold"> [facility] phs Serum or Plasma Potassium Medical </content>4.6 Center MEQ/L<content styleCode="Italic s"> (3.5-5.3 MEQ/L)</content> Chloride 98-107 <content [facility] [Moles/volume] in styleCode="Bold"> [facility] Serum or Plasma Chloride Medical </content>107 Center MEQ/L<content styleCode="Italic s"> (98-107 MEQ/L)</content> Creatinine 0.5-1.3 <content [facility] [Mass/volume] in styleCode="Bold"> Devin hs Serum or Plasma Creatinine Medical </content>0.6 Center MG/DL<content styleCode="Italic s"> (0.5-1.3 MG/DL)</content> Carbon dioxide, 22-30 Below low <content [facility] total normal styleCode="Bold"> Manuel [Moles/volume] in Carbon Dioxide Medical Serum or Plasma </content>19 Center MEQ/L L<content styleCode="Italic s"> (22-30 MEQ/L)</content> UNK 7-17 <content [facility] styleCode="Bold"> Manuel BUN </content>9 Medical MG/DL<content Center styleCode="Italic s"> (7-17 MG/DL)</content> Calcium 8.4-10. <content [facility] [Mass/volume] in 2 styleCode="Bold"> Devin hs Serum or Plasma Calcium Medical </content>9.7 Center MG/DL<content styleCode="Italic s"> (8.4-10.2 MG/DL)</content> UNK > 60 <content [facility] styleCode="Bold"> Manuel EGFR Medical </content>117 Center GFR<content styleCode="Italic s"> (> 60 GFR)</content> Aspartate 14-36 <content [facility] aminotransferase styleCode="Bold"> Devin hs [Enzymatic Aspartate Medical activity/volume] Aminotransferase Center in Serum or Plasma (AST) </content>30 IU/L<content styleCode="Italic s"> (14-36 IU/L)</content> Glucose 74-106 <content [facility] [Mass/volume] in styleCode="Bold"> Devin hs Serum or Plasma Glucose Medical </content>103 Center MG/DL<content styleCode="Italic s"> (74-106 MG/DL)</content> Alkaline 38-126 <content [facility] phosphatase styleCode="Bold"> Manuel [Enzymatic Alkaline Medical activity/volume] Phosphatase (ALP) Cente r in Serum or Plasma </content>57 IU/L<content styleCode="Italic s"> (38-126 IU/L)</content> Bilirubin.total 0.2-1.3 <content [facility] [Mass/volume] in styleCode="Bold"> Devin hs Serum or Plasma Bilirubin Total Medical </content>0.6 Center MG/DL<content styleCode="Italic s"> (0.2-1.3 MG/DL)</content> Alanine 7-30 <content [facility] aminotransferase styleCode="Bold"> Devin hs [Enzymatic Alanine Medical activity/volume] Aminotransferase Center in Serum or Plasma (ALT) </content>16 IU/L<content styleCode="Italic s"> (7-30 IU/L)</content> Albumin 3.5-5.0 <content [facility] [Mass/volume] in styleCode="Bold"> Devin hs Serum or Plasma Albumin Medical </content>4.5 Center G/DL<content styleCode="Italic s"> (3.5-5.0 G/DL)</content> ID Date Data Source Urinalysis.[id number] 06/04/2019 04:17:00 PM EDT Matt [facility] 0 Name Value Range Interpretation Description Data Sup porting Code Source(s) Document(s ) UNK CLEAR <content [facility] styleCode="Merline Manuel d">Urine Medical Clarity Center </content>Sl CLOUDY <content styleCode="Salud lics"> (CLEAR )</content> Color of Urine YELLOW <content Saint styleCode="[facility] d">Color, Medical Urine Center </content>YELL OW <content styleCode="Salud lics"> (YELLOW )</content> UNK NEGATIVE <content Saint styleCode="[facility] d">Urine Medical Bilirubin Center </content>NEGA TIVE <content styleCode="Salud lics"> (NEGATIVE )</content> Glucose NEGATIVE <content Saint [Mass/volume] styleCode="Merline Danielsons in Urine by d">Urine Medical Test strip Glucose Center </content>NEGA TIVE MG/DL<content styleCode="Salud lics"> (NEGATIVE MG/DL)</conten t> Ketones NEGATIVE <content [facility] [Mass/volume] styleCode="Merline Danielsons in Urine by d">Urine Medical Test strip Ketone Center </content>40 MG/DL<content styleCode="Salud lics"> (NEGATIVE MG/DL)</conten t> Hemoglobin NEGATIVE <content [facility] [Presence] in styleCode="Merline Danielsons Urine by Test d">Urine Blood Medical strip </content>NEGA Center TIVE <content styleCode="Salud lics"> (NEGATIVE )</content> Specific 1.015-1.02 <content [facility] gravity of 5 styleCode="Merline Danielsons Urine by Test d">Urine Medical strip Specific Center [place] </content>1.02 0 <content styleCode="Salud lics"> (1.015-1.025 )</content> Protein NEGATIVE <content [facility] [Mass/volume] styleCode="Merline Danielsons in Urine by d">Urine Medical Test strip Protein Center </content>NEGA TIVE MG/DL<content styleCode="Salud lics"> (NEGATIVE MG/DL)</conten t> pH of Urine by 4.5-8.0 <content [facility] Test strip styleCode="Merline Manuel d">Urine pH Medical </content>6.0 Center <content styleCode="Salud lics"> (4.5-8.0 )</content> Leukocyte NEGATIVE <content [facility] esterase styleCode="Merilne Manuel [Presence] in d">Urine Medical Urine by Test Leukocyte Center strip </content>TRAC E <content styleCode="Salud lics"> (NEGATIVE )</content> Nitrite NEGATIVE <content [facility] [Presence] in styleCode="Merline Danielsons Urine by Test d">Urine Medical strip Nitrite Center </content>POSI TIVE <content styleCode="Salud lics"> (NEGATIVE )</content> Urobilinogen 0.2-1.0 <content [facility] [Units/volume] styleCode="Merline Manuel in Urine by d">Urine Medical Test strip Urobilinogen Center </content>0.2 MG/DL<content styleCode="Salud lics"> (0.2-1.0 MG/DL)</conten t> UNK 0-3 <content [facility] styleCode="Merline Manuel d">Urine White Medical Blood Cell Center </content>3-5 HPF<content styleCode="Salud lics"> (0-3 HPF)</content> UNK 0-3 <content [facility] styleCode="Merline Manuel d">Urine Red Medical Blood Cell Center </content>0-3 HPF<content styleCode="Salud lics"> (0-3 HPF)</content> UNK NEGATIVE <content [facility] styleCode="Merline Manuel d">Urine Medical Bacteria Center </content>MANY HPF<content styleCode="Salud lics"> (NEGATIVE HPF)</content> ID Date Data Source Microbiology.[id number] 06/04/2019 04:17:00 PM EDT Matt [facility] 400 Name Value Range Interpretation Code Description Data Kathy rce(s) Supporting Document(s ) UNK <item><content [facility] styleCode="Bold"> Medical Cent er Culture Report </content>
<t able><tbody><tr>< td>Specimen Number:</td><td>[id number]</td></tr ><tr><td>Sample Collection Date/Time: </td><td> 9 4:17 PM</td></tr><tr>< td>Specimen Source:</td><td>U RINE</td></tr><tr ><td>Urine Culture:</td><td> Collection Plate Date: 06/04/2019 16:26 </td></tr><tr><td >Culture Status:</td><td>F inal </td></tr><tr><td >Culture Report:</td><td>C ulture in progress </td></tr><tr><td >[place] Count Urine:</td><td>>1 00,000 CFU/ML </td></tr><tr><td >Preliminary 1:</td><td>LACTOS E OPERATIONS WELDER </td></tr><tr><td >Organism 1:</td><td>ESCHER ICHIA COLI </td></tr></tbody ></table>
<ta ble border="2"><tbody ><tr><td></td><td >1</td></tr><tr>< td>Comment</td><t d></td></tr><tr>< td>Result Value</td><td>ESC HERICHIA COLI </td></tr><tr><td >Result Status</td><td>Fi nal Result</td></tr>< tr><td>AMPICILLIN </td><td><=8 S</td></tr><tr><t d>AMPICILLIN SULBACTAM</td><td ><=8/4 S</td></tr><tr><t d>AZTREONAM</td>< td><=8 S</td></tr><tr><t d>CEFOTETAN</td>< td><= 16 S</td></tr><tr><t d>CEFTAZIDIME</td ><td><=1 S</td></tr><tr><t d>CEFUROXIME</td> <td><=4 S</td></tr><tr><t d>CIPROFLOXACIN</ td><td><= 1 S</td></tr><tr><t d>ERTAPENEM</td>< td><=1 S</td></tr><tr><t d>GENTAMICIN</td> <td><= 4 S</td></tr><tr><t d>IMIPENEM</td><t d><= 1 S</td></tr><tr><t d>LEVOFLOXACIN</t d><td><= 2 S</td></tr><tr><t d>MEROPENEM</td>< td><= 1 S</td></tr><tr><t d>NITROFURANTOIN< /td><td><= 32 S</td></tr><tr><t d>PIPERACILLIN/TA ZOBACTAM</td><td> <= 16 S</td></tr><tr><t d>TETRACYCLINE</t d><td><= 4 S</td></tr><tr><t d>TIGECYCLINE</td ><td><= 2 S</td></tr><tr><t d>TRIMETHOPRIM/CARSON LFAMETHOXAZOLE</t d><td><=2/38 S</td></tr></tbod y></table></item> UNK <item><content [facility] styleCode="Bold"> Medical Cent er Culture Status </content>
<t able><tbody><tr>< td>Specimen Number:</td><td>[id number]</td></tr ><tr><td>Sample Collection Date/Time: </td><td> 9 4:17 PM</td></tr><tr>< td>Specimen Source:</td><td>U RINE</td></tr><tr ><td>[place] Count Urine:</td><td>>1 00,000 CFU/ML </td></tr><tr><td >Preliminary 1:</td><td>LACTOS E OPERATIONS WELDER </td></tr><tr><td >Culture Status:</td><td>F inal </td></tr><tr><td >Culture Report:</td><td>C ulture in progress </td></tr><tr><td >Urine Culture:</td><td> Collection Plate Date: 06/04/2019 16:26 </td></tr><tr><td >Organism 1:</td><td>ESCHER ICHIA COLI </td></tr></tbody ></table>
<ta ble border="2"><tbody ><tr><td></td><td >1</td></tr><tr>< td>Comment</td><t d></td></tr><tr>< td>Result Value</td><td>ESC HERICHIA COLI </td></tr><tr><td >Result Status</td><td>Fi nal Result</td></tr>< tr><td>AMPICILLIN </td><td><=8 S</td></tr><tr><t d>AMPICILLIN SULBACTAM</td><td ><=8/4 S</td></tr><tr><t d>AZTREONAM</td>< td><=8 S</td></tr><tr><t d>CEFOTETAN</td>< td><= 16 S</td></tr><tr><t d>CEFTAZIDIME</td ><td><=1 S</td></tr><tr><t d>CEFUROXIME</td> <td><=4 S</td></tr><tr><t d>CIPROFLOXACIN</ td><td><= 1 S</td></tr><tr><t d>ERTAPENEM</td>< td><=1 S</td></tr><tr><t d>GENTAMICIN</td> <td><= 4 S</td></tr><tr><t d>IMIPENEM</td><t d><= 1 S</td></tr><tr><t d>LEVOFLOXACIN</t d><td><= 2 S</td></tr><tr><t d>MEROPENEM</td>< td><= 1 S</td></tr><tr><t d>NITROFURANTOIN< /td><td><= 32 S</td></tr><tr><t d>PIPERACILLIN/TA ZOBACTAM</td><td> <= 16 S</td></tr><tr><t d>TETRACYCLINE</t d><td><= 4 S</td></tr><tr><t d>TIGECYCLINE</td ><td><= 2 S</td></tr><tr><t d>TRIMETHOPRIM/CARSON LFAMETHOXAZOLE</t d><td><=2/38 S</td></tr></tbod y></table></item> ID Date Data Source Liver 06/04/2019 11:13:00 AM EDT [facility] Profile.[id number] Name Value Range Interpretation Description Data Sup porting Code Source(s) Document(s ) Aspartate 14-36 <content [facility] aminotransferase styleCode="Bold"> Devin hs [Enzymatic Aspartate Medical activity/volume] Aminotransferase Center in Serum or Plasma (AST) </content>24 IU/L<content styleCode="Italic s"> (14-36 IU/L)</content> Bilirubin.total 0.2-1.3 <content [facility] [Mass/volume] in styleCode="Bold"> Devin hs Serum or Plasma Bilirubin Total Medical </content>0.3 Center MG/DL<content styleCode="Italic s"> (0.2-1.3 MG/DL)</content> Alanine 7-30 <content [facility] aminotransferase styleCode="Bold"> Devin hs [Enzymatic Alanine Medical activity/volume] Aminotransferase Center in Serum or Plasma (ALT) </content>16 IU/L<content styleCode="Italic s"> (7-30 IU/L)</content> Alkaline 38-126 <content [facility] phosphatase styleCode="Bold"> [facility] [Enzymatic Alkaline Medical activity/volume] Phosphatase (ALP) Cente r in Serum or Plasma </content>58 IU/L<content styleCode="Italic s"> (38-126 IU/L)</content> UNK 0.0-0.3 <content [facility] styleCode="Bold"> Manuel Bilirubin, Direct Medical </content>< 0.2 Center MG/DL<content styleCode="Italic s"> (0.0-0.3 MG/DL)</content> Albumin 3.5-5.0 <content [facility] [Mass/volume] in styleCode="Bold"> Devin hs Serum or Plasma Albumin Medical </content>4.3 Center G/DL<content styleCode="Italic s"> (3.5-5.0 G/DL)</content> ID Date Data Source HematologyRou.[id number] 06/04/2019 11:13:00 AM EDT Matt nt [facility] 0400 Name Value Range Interpretation Description Data Sup porting Code Source(s) Document(s ) Leukocytes 4.4-11.0 Above high <content Saint [#/volume] in normal styleCode="Bold Manuel Blood by ">White Blood Medical Automated count Cell Count Center </content>17.14 KCUMM H<content styleCode="Ital ics"> (4.4-11.0 KCUMM)</content > Hematocrit 36.0-46. <content [facility] [Volume 0 styleCode="Bold Manuel Fraction] of ">Hematocrit Medical Blood by </content>36.8 Center Automated count %<content styleCode="Ital ics"> (36.0-46.0 %)</content> Erythrocytes 4.0-5.1 <content [facility] [#/volume] in styleCode="Bold Manuel Blood by ">Red Blood Medical Automated count Cell Count Center </content>4.18 MCUMM<content styleCode="Ital ics"> (4.0-5.1 MCUMM)</content > Hemoglobin 12.3-16. Below low normal <content [facility] [Mass/volume] in 0 styleCode="Bold Manuel Blood ">Hemoglobin Medical </content>12.1 Center G/DL L<content styleCode="Ital ics"> (12.3-16.0 G/DL)</content> Erythrocyte mean 80.0-100 <content [facility] corpuscular .0 styleCode="Bold Manuel volume [Entitic ">Mean Medical volume] by Corpuscular Center Automated count Volume </content>88.0 FL<content styleCode="Ital ics"> (80.0-100.0 FL)</content> Erythrocyte mean 32.0-37. <content [facility] corpuscular 0 styleCode="Bold Manuel hemoglobin ">Mean Corpus. Medical concentration Hgb Center [Mass/volume] by Concentration Automated count (MCHC) </content>32.9 G/DL<content styleCode="Ital ics"> (32.0-37.0 G/DL)</content> Erythrocyte mean 26.0-34. <content [facility] corpuscular 0 styleCode="Bold Manuel hemoglobin ">Mean Medical [Entitic mass] Corposcular Center by Automated Hemoglobin count </content>28.9 PG<content styleCode="Ital ics"> (26.0-34.0 PG)</content> Platelets 130-400 <content Saint [#/volume] in styleCode="Bold Manuel Blood by ">Platelet Medical Automated count Count Center </content>308 KCUMM<content styleCode="Ital ics"> (130-400 KCUMM)</content > Erythrocyte 11.5-14. <content [facility] distribution 5 styleCode="Bold Manuel width [Ratio] by ">Red Cell Medical Automated count Distribution Center Width </content>12.8 %<content styleCode="Ital ics"> (11.5-14.5 %)</content> Platelet mean 8.0-11.0 <content [facility] volume [Entitic styleCode="Bold Manuel volume] in Blood ">Mean Platelet Medical by Automated Volume Center count </content>9.7 FL<content styleCode="Ital ics"> (8.0-11.0 FL)</content> UNK 0.0 <content Saint styleCode="Bold Manuel ">Nucleated Red Medical Blood Cell Center Count </content>0.00 KCUMM<content styleCode="Ital ics"> (0.0 KCUMM)</content > UNK 0 <content Saint styleCode="Bold Manuel ">Nucleated Red Medical Blood Cell Center </content>0.0 /100<content styleCode="Ital ics"> (0 /100)</content> ID Date Data Source GFR(Creatinine).[id number] 06/04/2019 11:13:00 AM EDT [facility] 0-0400 Name Value Range Interpretation Code Description Data Kathy rce(s) Supporting Document(s ) UNK > 60 <content [facility] Manuel styleCode="Bold"> Medical Cent er EGFR </content>89 GFR<content styleCode="Italic s"> (> 60 GFR)</content> ID Date Data Source CHMROUTINECCDA.[id number] 06/04/2019 11:13:00 AM EDT [facility] -0400 Name Value Range Interpretation Description Data Sup porting Code Source(s) Document(s ) Lipase 23-300 <content [facility] Manuel [Enzymatic styleCode="Bold Medical activity/vo ">Lipase Center lume] in </content>148 Serum or IU/L<content Plasma styleCode="Ital ics"> (23-300 IU/L)</content> ID Date Data Source BloodBank.[id number] 06/04/2019 11:13:00 AM EDT [facility] Name Value Range Interpretation Code Description Data Kathy rce(s) Supporting Document(s ) UNK <content [facility] styleCode="Bold" Medical Cente r >Blood Type </content>GROUP B (Reference Range: not available)
UNK NEGATIVE <content [facility] styleCode="Bold" Medical Cente r >Antibody Screen </content>NEGATI VE <content styleCode="Itali cs"> (NEGATIVE )</content> UNK <content [facility] styleCode="Bold" Medical Cente r >RH Type </content>POSITI VE (Reference Range: not available)
ID Date Data Source [facility].[id number] 06/04/2019 11:13:00 AM EDT [facility] Name Value Range Interpretation Description Data Sup porting Code Source(s) Document(s ) Potassium 3.5-5.3 <content Saint [Moles/volume] in styleCode="Bold"> [facility] Serum or Plasma Potassium Medical </content>3.8 Center MEQ/L<content styleCode="Italic s"> (3.5-5.3 MEQ/L)</content> Carbon dioxide, 22-30 <content [facility] total styleCode="Bold"> Manuel [Moles/volume] in Carbon Dioxide Medical Serum or Plasma </content>26 Center MEQ/L<content styleCode="Italic s"> (22-30 MEQ/L)</content> Chloride 98-107 <content Saint [Moles/volume] in styleCode="Bold"> [facility] Serum or Plasma Chloride Medical </content>106 Center MEQ/L<content styleCode="Italic s"> (98-107 MEQ/L)</content> Sodium 137-145 <content [facility] [Moles/volume] in styleCode="Bold"> Charles phs Serum or Plasma Sodium Medical </content>143 Center MEQ/L<content styleCode="Italic s"> (137-145 MEQ/L)</content> Creatinine 0.5-1.3 <content [facility] [Mass/volume] in styleCode="Bold"> Devin hs Serum or Plasma Creatinine Medical </content>0.9 Center MG/DL<content styleCode="Italic s"> (0.5-1.3 MG/DL)</content> Glucose 74-106 Above high <content [facility] [Mass/volume] in normal styleCode="Bold"> Devin hs Serum or Plasma Glucose Medical </content>126 Center MG/DL H<content styleCode="Italic s"> (74-106 MG/DL)</content> UNK 7-17 <content [facility] styleCode="Bold"> Manuel BUN </content>13 Medical MG/DL<content Center styleCode="Italic s"> (7-17 MG/DL)</content> Calcium 8.4-10. <content [facility] [Mass/volume] in 2 styleCode="Bold"> Devin hs Serum or Plasma Calcium Medical </content>9.8 Center MG/DL<content styleCode="Italic s"> (8.4-10.2 MG/DL)</content> Aspartate 14-36 <content [facility] aminotransferase styleCode="Bold"> Devin hs [Enzymatic Aspartate Medical activity/volume] Aminotransferase Center in Serum or Plasma (AST) </content>24 IU/L<content styleCode="Italic s"> (14-36 IU/L)</content> Alanine 7-30 <content [facility] aminotransferase styleCode="Bold"> Devin hs [Enzymatic Alanine Medical activity/volume] Aminotransferase Center in Serum or Plasma (ALT) </content>16 IU/L<content styleCode="Italic s"> (7-30 IU/L)</content> UNK > 60 <content [facility] styleCode="Bold"> Manuel EGFR </content>89 Medical GFR<content Center styleCode="Italic s"> (> 60 GFR)</content> Alkaline 38-126 <content [facility] phosphatase styleCode="Bold"> Manuel [Enzymatic Alkaline Medical activity/volume] Phosphatase (ALP) Cente r in Serum or Plasma </content>58 IU/L<content styleCode="Italic s"> (38-126 IU/L)</content> Bilirubin.total 0.2-1.3 <content [facility] [Mass/volume] in styleCode="Bold"> Devin hs Serum or Plasma Bilirubin Total Medical </content>0.3 Center MG/DL<content styleCode="Italic s"> (0.2-1.3 MG/DL)</content> Albumin 3.5-5.0 <content [facility] [Mass/volume] in styleCode="Bold"> Devin hs Serum or Plasma Albumin Medical </content>4.3 Center G/DL<content styleCode="Italic s"> (3.5-5.0 G/DL)</content> ID Date Data Source Microbiology.[id number] 10/06/2018 06:25:00 PM EST Matt [facility] 500 Name Value Range Interpretation Code Description Data Kathy rce(s) Supporting Document(s ) UNK <item><content [facility] styleCode="Bold"> Medical Cent er Culture Report </content>
<t able><tbody><tr>< td>Specimen Number:</td><td>[id number]</td></tr ><tr><td>Sample Collection Date/Time: </td><td>10/06/20 18 6:25 PM</td></tr><tr>< td>Specimen Source:</td><td>A NAL</td></tr><tr> <td>Culture Report:</td><td>N O NEISSERIA GONORRHOEAE WAS ISOLATED </td></tr><tr><td >Genital Culture:</td><td> Collection Plate Date: 10/06/2018 18:26 </td></tr><tr><td >Culture Status:</td><td>F inal </td></tr></tbody ></table></item> UNK <item><content [facility] styleCode="Bold"> Medical Cent er Culture Status </content>
<t able><tbody><tr>< td>Specimen Number:</td><td>[id number]</td></tr ><tr><td>Sample Collection Date/Time: </td><td>10/06/20 18 6:25 PM</td></tr><tr>< td>Specimen Source:</td><td>A NAL</td></tr><tr> <td>Culture Status:</td><td>F inal </td></tr><tr><td >Culture Report:</td><td>N O NEISSERIA GONORRHOEAE WAS ISOLATED </td></tr><tr><td >Genital Culture:</td><td> Collection Plate Date: 10/06/2018 18:26 </td></tr></tbody ></table></item> ID Date Data Source Urinalysis.[id number] 10/06/2018 06:14:00 PM EST [facility] 0 Name Value Range Interpretation Description Data Sup porting Code Source(s) Document(s ) Color of Urine YELLOW <content Saint styleCode="Merline Danielsons d">Color, Medical Urine Center </content>YELL OW <content styleCode="Salud lics"> (YELLOW )</content> Ketones NEGATIVE <content Saint [Mass/volume] styleCode="Merline Jackson in Urine by d">Urine Medical Test strip Ketone Center </content>NEGA TIVE MG/DL<content styleCode="Salud lics"> (NEGATIVE MG/DL)</conten t> UNK CLEAR <content [facility] styleCode="Merline Manuel d">Urine Medical Clarity Center </content>JOSE MANUEL R <content styleCode="Salud lics"> (CLEAR )</content> UNK NEGATIVE <content Saint styleCode="Merline Manuel d">Urine Medical Bilirubin Center </content>NEGA TIVE <content styleCode="Salud lics"> (NEGATIVE )</content> Glucose NEGATIVE <content [facility] [Mass/volume] styleCode="Merline Manuel in Urine by d">Urine Medical Test strip Glucose Center </content>NEGA TIVE MG/DL<content styleCode="Salud lics"> (NEGATIVE MG/DL)</conten t> pH of Urine by 4.5-8.0 <content Saint Test strip styleCode="Merline Manuel d">Urine pH Medical </content>5.5 Center NM<content styleCode="Salud lics"> (4.5-8.0 NM)</content> Specific 1.015-1.02 Above high <content Saint gravity of 5 normal styleCode="Merline Manuel Urine by Test d">Urine Medical strip Specific Center [place] </content>>= 1.030 H<content styleCode="Salud lics"> (1.015-1.025 )</content> Hemoglobin NEGATIVE <content Saint [Presence] in styleCode="Merline Manuel Urine by Test d">Urine Blood Medical strip </content>NEGA Center TIVE <content styleCode="Salud lics"> (NEGATIVE )</content> Protein NEGATIVE <content Saint [Mass/volume] styleCode="Merline Manuel in Urine by d">Urine Medical Test strip Protein Center </content>NEGA TIVE MG/DL<content styleCode="Salud lics"> (NEGATIVE MG/DL)</conten t> Leukocyte NEGATIVE <content [facility] esterase styleCode="Merline Manuel [Presence] in d">Urine Medical Urine by Test Leukocyte Center strip </content>NEGA TIVE <content styleCode="Salud lics"> (NEGATIVE )</content> Urobilinogen 0.2-1.0 <content [facility] [Units/volume] styleCode="Merline Manuel in Urine by d">Urine Medical Test strip Urobilinogen Center </content>0.2 MG/DL<content styleCode="Salud lics"> (0.2-1.0 MG/DL)</conten t> Nitrite NEGATIVE <content [facility] [Presence] in styleCode="Merline Manuel Urine by Test d">Urine Medical strip Nitrite Center </content>NEGA TIVE <content styleCode="Salud lics"> (NEGATIVE )</content> ID Date Data Source Urinalysis 10/06/2018 06:14:00 PM EST [facility] Name Value Range Interpretation Description Data Sup porting Code Source(s) Document(s ) Color of Urine YELLOW <content [facility] styleCode="Merline Jackson d">Color, Medical Urine Center </content>YELL OW <content styleCode="Salud lics"> (YELLOW )</content> UNK CLEAR <content [facility] styleCode="Merline Jackson d">Urine Medical Clarity Center </content>JOSE MANUEL R <content styleCode="Salud lics"> (CLEAR )</content> Glucose NEGATIVE <content [facility] [Mass/volume] styleCode="Merline Jackson in Urine by d">Urine Medical Test strip Glucose Center </content>NEGA TIVE MG/DL<content styleCode="Salud lics"> (NEGATIVE MG/DL)</conten t> Ketones NEGATIVE <content [facility] [Mass/volume] styleCode="Merline Jackson in Urine by d">Urine Medical Test strip Ketone Center </content>NEGA TIVE MG/DL<content styleCode="Salud lics"> (NEGATIVE MG/DL)</conten t> UNK NEGATIVE <content [facility] styleCode="Merline Jackson d">Urine Medical Bilirubin Center </content>NEGA TIVE <content styleCode="Salud lics"> (NEGATIVE )</content> Hemoglobin NEGATIVE <content Saint [Presence] in styleCode="Merline Jackson Urine by Test d">Urine Blood Medical strip </content>NEGA Center TIVE <content styleCode="Salud lics"> (NEGATIVE )</content> Protein NEGATIVE <content Saint [Mass/volume] styleCode="Merline Jackson in Urine by d">Urine Medical Test strip Protein Center </content>NEGA TIVE MG/DL<content styleCode="Salud lics"> (NEGATIVE MG/DL)</conten t> Specific 1.015-1.02 Above high <content [facility] gravity of 5 normal styleCode="Merline Danielsons Urine by Test d">Urine Medical strip Specific Center [place] </content>>= 1.030 H<content styleCode="Salud lics"> (1.015-1.025 )</content> pH of Urine by 4.5-8.0 <content [facility] Test strip styleCode="Merline Manuel d">Urine pH Medical </content>5.5 Center NM<content styleCode="Salud lics"> (4.5-8.0 NM)</content> Leukocyte NEGATIVE <content [facility] esterase styleCode="Merline Danielsons [Presence] in d">Urine Medical Urine by Test Leukocyte Center strip </content>NEGA TIVE <content styleCode="Salud lics"> (NEGATIVE )</content> Nitrite NEGATIVE <content [facility] [Presence] in styleCode="Merline Danielsons Urine by Test d">Urine Medical strip Nitrite Center </content>NEGA TIVE <content styleCode="Salud lics"> (NEGATIVE )</content> Urobilinogen 0.2-1.0 <content [facility] [Units/volume] styleCode="Merline Danielsons in Urine by d">Urine Medical Test strip Urobilinogen Center </content>0.2 MG/DL<content styleCode="Salud lics"> (0.2-1.0 MG/DL)</conten t> ID Date Data Source [id number] 03/25/2016 02:07:00 PM EDT [facility] System Name Value Range Interpretation Description Data Sup porting Code Source(s) Document(s ) Type B Normal (applies Type [facility] to non-numeric [facility] System results) D Ab [Titer] Positive Normal (applies Rh [facility] in Serum or to non-numeric Health System Plasma results) Antibody Negative Normal (applies Antibody [facility] Screen to non-numeric Screen Health System results) ID Date Data Source [id number] 03/25/2016 12:15:00 PM EDT [facility] Name Value Range Interpretation Description Data Sup porting Code Source(s) Document(s ) Deprecated Micro Normal (applies Aerobic [facility] Bacteria Result to non-numeric Culture, Urine Health identified in Final results) System Urine by Culture Aerobe Reading culture Note::< 10,000 CFU/ML ID Date Data Source [id number] 03/25/2016 12:15:00 PM EDT [facility] System Name Value Range Interpretation Description Data Sup porting Code Source(s) Document(s ) Color Yellow Yellow Normal (applies Color [facility] to non-numeric Health results) System Appearance of clear Clear Normal (applies Urine [facility] Urine to non-numeric Appearance Health results) System Specific 1.016 Normal (applies Urine Specific [facility] gravity of to non-numeric [facility] Urine results) System pH.. 6.0 4.6 - 8.0 Normal (applies pH.. [facility] {pH_unit pH units to non-numeric Health s} results) System Glucose, UA NEG < 50 mg/dl Normal (applies Glucose, UA [facility] to non-numeric Health results) System Protein NEG < 30 mg/dl Normal (applies Protein [facility] [Mass/volume] to non-numeric Health in Serum or results) System Plasma Bilirubin NEG Negative Normal (applies Bilirubin [facility] Urine Sm to Lg to non-numeric Urine Health results) System Urobilinogen < 2.0 Normal (applies Urobilinogen [facility] [Mass/volume] to non-numeric UA Health in Urine results) System Reference Range: Negative or <=2.0 Ketones NEG Negative Tr Normal (applies Ketones UA [facility] [Mass/volume] in to Lg to non-numeric Health S ystem Urine results) Nitrate+Nitrite Negative Negative Normal (applies Nitrite [facility] [Mass/volume] in Neg/Pos to non-numeric Health S ystem Unspecified results) specimen Leukocyte NEG Negative Tr Normal (applies Leukocyte [facility] esterase to Lg to non-numeric Esterase [facility] [Units/volume] in results) Concentration Urine Leukocytes 1 {/HPF} 0 - 2 /HPF Normal (applies White Blood Cells [facility] [#/volume] in to non-numeric Health Syst em Unspecified results) specimen by Automated count Red Blood Cells 1 {/HPF} 0 - 1 /HPF Normal (applies Red Blood Cells [facility] to non-numeric [facility] System results) Epithelial cells < 1 /HPF 0 - 3 /HPF Normal (applies Epithelial Korina ls [facility] [Presence] in to non-numeric Health Syst em Unspecified results) specimen by Wet preparation Mucus OCC 0 - 1 /LPF Normal (applies Mucus [facility] to non-numeric Health System results) Bacteria FEW 0 - 5 /HPF Normal (applies Bacteria [facility] [Presence] in to non-numeric Health Syst em Unspecified results) specimen Urine Blood NEG Negative Sm Normal (applies Urine Blood [facility] to Lg to non-numeric Health System results) ID Date Data Source [id number] 03/25/2016 12:15:00 PM EDT [facility] Name Value Range Interpretation Description Data Sup porting Code Source(s) Document(s ) Leukocytes 9.8 4.8 - Normal (applies WBC Count [facility] [#/volume] in {10^3_u 10.8 to non-numeric Health Unspecified L} 10^3 uL results) System specimen by Automated count Erythrocytes 3.16 4.20 - Below low normal RBC Count [facility] [#/volume] in {10^6_u 5.40 Health Blood by L} 10^6 uL System Automated count Hemoglobin 9.7 12.0 - Below low normal Hemoglobin [facility] [Mass/volume] in {gm/dL} 16.0 Health Blood gm/dL System Hematocrit 28.8 % 37.0 - Below low normal Hematocrit [facility] [Volume 47.0 % Health Fraction] of System Blood Erythrocyte mean 91.1 fl 81.0 - Normal (applies MCV [facility] corpuscular 99.0 fl to non-numeric Health volume [Entitic results) System volume] by Automated count Erythrocyte mean 30.7 pg 27.0 - Normal (applies MCH [facility] corpuscular 31.0 pg to non-numeric Health hemoglobin results) System [Entitic mass] by Automated count Erythrocyte mean 33.7 30.0 - Normal (applies MCHC [facility] corpuscular {gm/dL} 35.0 to non-numeric Health hemoglobin gm/dL results) System concentration [Mass/volume] by Automated count Erythrocyte 12.9 % 11.5 - Normal (applies RDW-CV [facility] distribution 14.5 % to non-numeric Health width [Entitic results) System volume] by Automated count Platelets 263 130 - Normal (applies Platelet Count [facility] [#/volume] in {10^3_u 400 to non-numeric Health Plasma by L} 10^3 uL results) System Automated count Platelet mean 8.9 fl 8.6 - Normal (applies MPV [facility] volume [Entitic 13.5 fl to non-numeric Health volume] in Blood results) System by Automated count Nucleated 0.0 0.0 - Normal (applies NRBC % [facility] erythrocytes {/100_W 0.2 to non-numeric Health [#/volume] in BC} /100 results) System Body fluid WBC NRBC # 0.00 0.00 - Normal (applies NRBC # [facility] {10^6_u 0.01 to non-numeric Health L} 10^6 uL results) System Neutrophils/100 64.2 % 55.0 - Normal (applies Neutrophil % Anders florencio leukocytes in 75.0 % to non-numeric Health Blood by results) System Automated count Neutrophils 6.3 2.6 - Normal (applies Neutrophil # [facility] [#/volume] in {10^3_u 8.1 to non-numeric Health Body fluid L} 10^3 uL results) System Lymphocytes 18.9 % 15.0 - Normal (applies Lymphocyte % [facility] [#/volume] in 41.0 % to non-numeric Health Blood by results) System Automated count Lymphocyte # 1.8 1.0 - Normal (applies Lymphocyte # [facility] {10^3_u 4.8 to non-numeric Health L} 10^3 uL results) System Monocytes/100 12.4 % 2.0 - Above high Monocyte % [facility] leukocytes in 9.0 % normal Health Blood System Monocytes 1.2 0.1 - Above high Monocyte # [facility] [#/volume] in {10^3_u 1.0 normal Health Blood by Manual L} 10^3 uL System count Eosinophils/100 3.7 % 0.0 - Normal (applies Eosinophil % [facility] fl[facility]ncio leukocytes in 5.0 % to non-numeric Health Unspecified results) System specimen Eosinophils 0.36 0.00 - Normal (applies Eosinophil # [facility] [#/volume] in {10^3_u 0.50 to non-numeric Health Blood L} 10^3 uL results) System Basophils/100 0.2 % 0.0 - Normal (applies Basophil % [facility] leukocytes in 1.0 % to non-numeric Health Unspecified results) System specimen by Manual count Basophils 0.02 0.00 - Normal (applies Basophil # [facility] [#/volume] in {10^3_u 0.10 to non-numeric Health Blood by L} 10^3 uL results) System Automated count Immature 0.06 0.00 - Normal (applies Immature [facility] Granulocytes # {10^3_u 0.09 to non-numeric Granulocytes # Healt h L} 10^3 uL results) System Immature 0.6 % 0.0 - Normal (applies Immature [facility] Granulocytes % 0.8 % to non-numeric Granulocytes % Healt h results) System ID Date Data Source [id number] 03/25/2016 12:15:00 PM EDT [facility] Name Value Range Interpretation Description Data Sup porting Code Source(s) Document(s ) hCG 38468.00 <5 Above high hCG [facility] Quantitative {mIU/mL} mIU/mL normal Quantitative Health System Negative = <5 mIU/mLAPPROXIMATE GEST. AG E APPROXIMATE HCG mIU/ML 0.2 - 1 week 5 - 50 1 - 2 w eeks 50 - 500 2 - 3 weeks 100 - 5,000 3 - 4 weeks 500 - 10,000 4 - 5 weeks 1,000 - 50,000 5 - 6 weeks 10,000 - 100,000 6 - 8 weeks 15,000 - 200,000 8 - 12 weeks 10,000 - 1 00,000HCG levels between 5-25 mIU/mL may be indicative of early . Correlati on with other clinical findings and/or repeat of HCG quantitative testing recommened. ID Date Data Source [id number] 03/25/2016 12:15:00 PM EDT [facility] Name Value Range Interpretation Description Data Sup porting Code Source(s) Document(s ) Sodium 133 135 - Below low normal Sodium, Serum [facility] [Moles/volume] in mmol/L 145 Health Serum or Plasma mmol/L System Potassium 4.1 3.5 - Normal (applies Potassium, [facility] [Mass/volume] in mmol/L 5.0 to non-numeric Serum Health Serum or Plasma mmol/L results) System Chloride 101 101 - Normal (applies Chloride, [facility] [Moles/volume] in mmol/L 111 to non-numeric Serum Health Serum or Plasma mmol/L results) System Carbon dioxide, 25.0 21.0 - Normal (applies CO2, Serum [facility] total mmol/L 31.0 to non-numeric Health [Moles/volume] in mmol/L results) System Serum or Plasma Total Protein 6.9 6.4 - Normal (applies Total Protein [facility] mg/dl 8.1 to non-numeric Health mg/dl results) System Glucose 99 65 - Normal (applies Glucose, [facility] [Mass/volume] in mg/dL 110 to non-numeric Serum Health Serum or Plasma mg/dL results) System Urea nitrogen 7 mg/dl 7 - 18 Normal (applies Blood Urea [facility] [Mass/volume] in mg/dl to non-numeric Nitrogen, Health Serum or Plasma results) Serum System Creatinine 0.53 0.50 - Normal (applies Creatinine, [facility] [Mass/volume] in mg/dl 1.20 to non-numeric Serum Health Serum or Plasma mg/dl results) System Alkaline 49 42 - Normal (applies Alkaline [facility] phosphatase {IU/L} 121 to non-numeric Phosphatase, [facility] isoenzymes IU/L results) Serum System [Enzymatic activity/volume] in Serum or Plasma by Heat stability Bilirubin.total 0.3 0.2 - Normal (applies Bilirubin, [facility] [Mass/volume] in mg/dl 1.2 to non-numeric Serum Total Health Serum or Plasma mg/dl results) System Direct Bilirubin 0.0 0.0 - Normal (applies Direct [facility] mg/dl 0.4 to non-numeric Bilirubin Health mg/dl results) System Aspartate 21 10 - 42 Normal (applies Aspartate [facility] aminotransferase {IU/L} IU/L to non-numeric Transaminase, Heal th [Enzymatic results) Serum System activity/volume] in Serum or Plasma by With P-5'-P Albumin 3.7 3.2 - Normal (applies Albumin, [facility] [Mass/volume] in {gm/dl} 5.5 to non-numeric Serum Health Serum or Plasma gm/dl results) System I. Phosphorus 3.9 2.6 - Normal (applies I. Phosphorus [facility] mg/dl 4.9 to non-numeric Health mg/dl results) System Alanine 23 10 - 42 Normal (applies Alanine [facility] aminotransferase {IU/L} IU/L to non-numeric Aminotransfer Heal th [Enzymatic results) ase, Serum System activity/volume] in Serum or Plasma Calcium 8.6 8.4 - Normal (applies Calcium, [facility] [Mass/volume] in mg/dl 10.2 to non-numeric Total Serum Health Serum or Plasma mg/dl results) System A/G Ratio 1.16 Normal (applies A/G Ratio [facility] to non-numeric Health results) System Urate 3.8 2.3 - Normal (applies Uric Acid, [facility] [Mass/volume] in mg/dl 7.5 to non-numeric Serum Health Serum or Plasma mg/dl results) System Anion gap in Serum 7.00 Normal (applies Anion Gap Anders florencio or Plasma mmol/L to non-numeric Health results) System Glomerular > 90 Normal (applies GFR [facility] filtration to non-numeric Health rate/1.73 sq results) System M.predicted [Volume Rate/Area] in Serum or Plasma by Creatinine-based formula (CKD-EPI) eGFR will provide clinicians with a more accurate indicator of renal function then the serum creatinine. The eGFR is automa tically calculated from an empiric formula (endorsed by the [employer] ion) which incorporates age, sex, and race.Clinicians may notice surprisingly low GFR's with serum creatinine valueswithin normal range- particularly in elderly wo men (with low muscle mass).In the hospital setting, the eGFR should add an element of safety in drug dosing, in assessing the risk of IV contrast administration, and in assessing vascular risk.The NKF staging system is as follows:Normal: eGFR >90 with no kidney markersStage 1: eGFR >90 with kidney markers*Stage 2: eGFR 60- 89Stage 3: eGFR 30-59Stage 4: eGFR 15-29Stage 5: eGFR <15 (usually requir ing dialysis)*Markers include: Proteinuria, Hematuria, abnormal imaging-studies, or other blood or urine test abnormalities ID Date Data Source [id number] 02/26/2016 11:22:00 PM EDT [facility] System Name Value Range Interpretation Description Data Sup porting Code Source(s) Document(s ) Deprecated Micro Result Normal (applies Aerobic [facility] Bacteria to non-numeric Culture, Urine Health identified in results) System Urine by Aerobe culture XXX Escherichia Organism [facility] microorganism coli Health serotype System [Identifier] in Isolate by Agglutination [place] Count >50,000 - [place] Count [facility] <100,000 C Health System Amikacin <=16 - Amikacin [facility] [Susceptibilit Sensitive Health y] System Ampicillin <=8 - Ampicillin [facility] [Susceptibilit Sensitive Health y] System Ampicillin+Sul <=8/4 - [facility] bactam Sensitive Ampicillin/Sulb Health [Susceptibilit actam System y] Aztreonam <=8 - Aztreonam [facility] [Susceptibilit Sensitive Health y] System Cefazolin <=8 - cefazolin [facility] [Susceptibilit Sensitive Health y] System Cefoxitin <=8 - Cefoxitin [facility] [Mass/volume] Sensitive Health in Unspecified System specimen Ceftriaxone <=8 - Ceftriaxone [facility] [Susceptibilit Sensitive Health y] System Ciprofloxacin <=1 - [facility] [Susceptibilit Sensitive Ciprofloxacin Health y] System Ertapenem <=1 - Ertapenem [facility] [Susceptibilit Sensitive Health y] by Minimum System inhibitory concentration (ROSEANNA) Gentamicin <=4 - Gentamicin [facility] [Susceptibilit Sensitive Health y] System Nitrofurantoin <=32 - [facility] [Mass/volume] Sensitive Nitrofurantoin Health in Serum or System Plasma Piperacillin+T <=16 - [facility] azobactam Sensitive Piperacillin/Ta Health [Susceptibilit zobactam System y] Trimethoprim+S <=2/38 - [facility] ulfamethoxazol Sensitive Trimethoprim/[facility] e lfamethoxazole System [Susceptibilit y] ID Date Data Source [id number] 02/26/2016 11:01:00 PM EDT [facility] Name Value Range Interpretation Description Data Sup porting Code Source(s) Document(s ) C. Not Normal (applies C. [facility] Trachomatis DetectedReference to non-numeric Trachomatis [facility] Amp Range: Not results) Amp System Detected N. Gonorrhea Not Normal (applies N. Gonorrhea [facility] by LCR DetectedReference to non-numeric by LCR Health Range: Not results) System DetectedThis test was performed using the APTIMA COMBO2(R) Assay(GEN-PROBE(R )).Test Performed at:[facility], [place], [place] [id number] Ashley, M.D. ID Date Data Source [id number] 02/26/2016 11:01:00 PM EDT [facility] Name Value Range Interpretation Description Data Sup porting Code Source(s) Document(s ) Culture Micro Result Normal (applies Culture [facility] Bacteria Final Culture to non-numeric Bacteria Health Throat Reading results) Throat System Note::NO BETA HEMOLYTIC STREPTOCOCCI ISOLATED ID Date Data Source [id number] 02/26/2016 11:01:00 PM EDT [facility] Name Value Range Interpretation Description Data Sup porting Code Source(s) Document(s ) Strep Group Negative Normal (applies to Strep Group A Anders florencio A Direct non-numeric Direct Antigen Health System Antigen results) Method: ImmunochromatographicRapid Strep Grp A preliminary test only!!! Final result will be confirmed by culture. ID Date Data Source [id number] 02/26/2016 11:01:00 PM EDT [facility] Name Value Range Interpretation Description Data Sup porting Code Source(s) Document(s ) Color Yellow Yellow Normal (applies Color [facility] to non-numeric Health results) System Appearance of CLOUDY Clear Normal (applies Urine [facility] Urine to non-numeric Appearance Health results) System Specific 1.018 Normal (applies Urine Specific [facility] gravity of to non-numeric [facility] Urine results) System pH.. 7.0 4.6 - 8.0 Normal (applies pH.. [facility] {pH_unit pH units to non-numeric Health s} results) System Glucose, UA NEG < 50 mg/dl Normal (applies Glucose, UA [facility] to non-numeric Health results) System Protein 30 mg/dl < 30 mg/dl Abnormal Protein [facility] [Mass/volume] (applies to Health in Serum or non-numeric System Plasma results) Bilirubin NEG Negative Normal (applies Bilirubin [facility] Urine Sm to Lg to non-numeric Urine Health results) System Urobilinogen < 2.0 Normal (applies Urobilinogen [facility] [Mass/volume] to non-numeric UA Health in Urine results) System Reference Range: Negative or <=2.0 Ketones NEG Negative Tr Normal (applies Ketones UA [facility] [Mass/volume] in to Lg to non-numeric Health S ystem Urine results) Nitrate+Nitrite Negative Negative Normal (applies Nitrite [facility] [Mass/volume] in Neg/Pos to non-numeric Health S ystem Unspecified results) specimen Leukocyte Large Negative Tr Abnormal Leukocyte [facility] esterase to Lg (applies to Esterase Health System [Units/volume] in non-numeric Concentration Urine results) Leukocytes 43 {/HPF} 0 - 2 /HPF Normal (applies White Blood [facility] [#/volume] in to non-numeric Cells Health Syst em Unspecified results) specimen by Automated count Red Blood Cells 2 {/HPF} 0 - 1 /HPF Normal (applies Red Blood Cells [facility] to non-numeric Health System results) Epithelial cells 10 {/HPF} 0 - 3 /HPF Normal (applies Epithelial Korina ls [facility] [Presence] in to non-numeric Health Syst em Unspecified results) specimen by Wet preparation Mucus RARE 0 - 1 /LPF Normal (applies Mucus [facility] to non-numeric Health System results) Urine Blood NEG Negative Sm Normal (applies Urine Blood [facility] to Lg to non-numeric Health System results) ID Date Data Source [id number] 02/05/2016 02:50:00 PM EDT [facility] Name Value Range Interpretation Description Data Sup porting Code Source(s) Document(s ) Type B Normal (applies Type [facility] to non-numeric Health System results) D Ab [Titer] Positive Normal (applies Rh [facility] in Serum or to non-numeric Health System Plasma results) Antibody Negative Normal (applies Antibody [facility] Screen to non-numeric Screen Health System results) ID Date Data Source [id number] 02/05/2016 02:50:00 PM EDT [facility] Name Value Range Interpretation Description Data Sup porting Code Source(s) Document(s ) Color Yellow Yellow Normal (applies Color [facility] to non-numeric Health results) System Appearance of CLEAR Clear Normal (applies Urine [facility] Urine to non-numeric Appearance Health results) System Specific 1.017 Normal (applies Urine Specific [facility] gravity of to non-numeric [facility] Urine results) System pH.. 5.0 4.6 - 8.0 Normal (applies pH.. [facility] {pH_unit pH units to non-numeric Health s} results) System Glucose, UA NEG < 50 mg/dl Normal (applies Glucose, UA [facility] to non-numeric Health results) System Protein NEG < 30 mg/dl Normal (applies Protein [facility] [Mass/volume] to non-numeric Health in Serum or results) System Plasma Bilirubin NEG Negative Normal (applies Bilirubin [facility] Urine Sm to Lg to non-numeric Urine Health results) System Urobilinogen < 2.0 Normal (applies Urobilinogen [facility] [Mass/volume] to non-numeric UA Health in Urine results) System Reference Range: Negative or <=2.0 Ketones NEG Negative Tr Normal (applies Ketones UA [facility] [Mass/volume] in to Lg to non-numeric Health S ystem Urine results) Nitrate+Nitrite Negative Negative Normal (applies Nitrite [facility] [Mass/volume] in Neg/Pos to non-numeric Health S ystem Unspecified results) specimen Leukocyte NEG Negative Tr Normal (applies Leukocyte [facility] esterase to Lg to non-numeric Esterase Health System [Units/volume] in results) Concentration Urine Leukocytes 1 {/HPF} 0 - 2 /HPF Normal (applies White Blood Cells [facility] [#/volume] in to non-numeric Health Syst em Unspecified results) specimen by Automated count Red Blood Cells < 1 /HPF 0 - 1 /HPF Normal (applies Red Blood Cells [facility] to non-numeric Health System results) Epithelial cells 2 {/HPF} 0 - 3 /HPF Normal (applies Epithelial Korina ls [facility] [Presence] in to non-numeric Health Syst em Unspecified results) specimen by Wet preparation Mucus OCC 0 - 1 /LPF Normal (applies Mucus [facility] to non-numeric Health System results) Urine Blood NEG Negative Sm Normal (applies Urine Blood [facility] to Lg to non-numeric Health System results) ID Date Data Source [id number] 02/05/2016 02:50:00 PM EDT [facility] Name Value Range Interpretation Description Data Sup porting Code Source(s) Document(s ) Leukocytes 10.0 4.8 - Normal (applies WBC Count [facility] [#/volume] in {10^3_u 10.8 to non-numeric Health Unspecified L} 10^3 uL results) System specimen by Automated count Erythrocytes 3.62 4.20 - Below low normal RBC Count [facility] [#/volume] in {10^6_u 5.40 Health Blood by L} 10^6 uL System Automated count Hemoglobin 10.7 12.0 - Below low normal Hemoglobin [facility] [Mass/volume] in {gm/dL} 16.0 Health Blood gm/dL System Hematocrit 31.9 % 37.0 - Below low normal Hematocrit [facility] [Volume 47.0 % Health Fraction] of System Blood Erythrocyte mean 88.1 fl 81.0 - Normal (applies MCV [facility] corpuscular 99.0 fl to non-numeric Health volume [Entitic results) System volume] by Automated count Erythrocyte mean 29.6 pg 27.0 - Normal (applies MCH [facility] corpuscular 31.0 pg to non-numeric Health hemoglobin results) System [Entitic mass] by Automated count Erythrocyte mean 33.5 30.0 - Normal (applies MCHC [facility] corpuscular {gm/dL} 35.0 to non-numeric Health hemoglobin gm/dL results) System concentration [Mass/volume] by Automated count Erythrocyte 11.9 % 11.5 - Normal (applies RDW-CV [facility] distribution 14.5 % to non-numeric Health width [Entitic results) System volume] by Automated count Platelets 298 130 - Normal (applies Platelet Count [facility] [#/volume] in {10^3_u 400 to non-numeric Health Plasma by L} 10^3 uL results) System Automated count Platelet mean 9.3 fl 8.6 - Normal (applies MPV [facility] volume [Entitic 13.5 fl to non-numeric Health volume] in Blood results) System by Automated count Nucleated 0.0 0.0 - Normal (applies NRBC % [facility] erythrocytes {/100_W 0.2 to non-numeric Health [#/volume] in BC} /100 results) System Body fluid WBC NRBC # 0.00 0.00 - Normal (applies NRBC # [facility] {10^6_u 0.01 to non-numeric Health L} 10^6 uL results) System Neutrophils/100 67.8 % 55.0 - Normal (applies Neutrophil % Anders florencio leukocytes in 75.0 % to non-numeric Health Blood by results) System Automated count Neutrophils 6.8 2.6 - Normal (applies Neutrophil # [facility] [#/volume] in {10^3_u 8.1 to non-numeric Health Body fluid L} 10^3 uL results) System Lymphocytes 19.8 % 15.0 - Normal (applies Lymphocyte % [facility] [#/volume] in 41.0 % to non-numeric Health Blood by results) System Automated count Lymphocyte # 2.0 1.0 - Normal (applies Lymphocyte # [facility] {10^3_u 4.8 to non-numeric Health L} 10^3 uL results) System Monocytes/100 8.6 % 2.0 - Normal (applies Monocyte % [facility] leukocytes in 9.0 % to non-numeric Health Blood results) System Monocytes 0.9 0.1 - Normal (applies Monocyte # [facility] [#/volume] in {10^3_u 1.0 to non-numeric Health Blood by Manual L} 10^3 uL results) System count Eosinophils/100 2.9 % 0.0 - Normal (applies Eosinophil % Anders florencio leukocytes in 5.0 % to non-numeric Health Unspecified results) System specimen Eosinophils 0.29 0.00 - Normal (applies Eosinophil # [facility] [#/volume] in {10^3_u 0.50 to non-numeric Health Blood L} 10^3 uL results) System Basophils/100 0.6 % 0.0 - Normal (applies Basophil % [facility] leukocytes in 1.0 % to non-numeric Health Unspecified results) System specimen by Manual count Basophils 0.06 0.00 - Normal (applies Basophil # [facility] [#/volume] in {10^3_u 0.10 to non-numeric Health Blood by L} 10^3 uL results) System Automated count Immature 0.03 0.00 - Normal (applies Immature [facility] Granulocytes # {10^3_u 0.09 to non-numeric Granulocytes # [facility] L} 10^3 uL results) System Immature 0.3 % 0.0 - Normal (applies Immature [facility] Granulocytes % 0.8 % to non-numeric Granulocytes % [facility] results) System ID Date Data Source [id number] 02/05/2016 02:50:00 PM EDT [facility] Name Value Range Interpretation Description Data Sup porting Code Source(s) Document(s ) hCG 23504.00 <5 Above high hCG [facility] Quantitative {mIU/mL} mIU/mL normal Quantitative [facility] System Negative = <5 mIU/mLAPPROXIMATE GEST. AG E APPROXIMATE HCG mIU/ML 0.2 - 1 week 5 - 50 1 - 2 w eeks 50 - 500 2 - 3 weeks 100 - 5,000 3 - 4 weeks 500 - 10,000 4 - 5 weeks 1,000 - 50,000 5 - 6 weeks 10,000 - 100,000 6 - 8 weeks 15,000 - 200,000 8 - 12 weeks 10,000 - 1 00,000HCG levels between 5-25 mIU/mL may be indicative of early . Correlati on with other clinical findings and/or repeat of HCG quantitative testing recommened. ID Date Data Source [id number] 02/05/2016 02:50:00 PM EDT [facility] Name Value Range Interpretation Description Data Sup porting Code Source(s) Document(s ) Sodium 134 135 - Below low normal Sodium, Serum [facility] [Moles/volume] in mmol/L 145 Health Serum or Plasma mmol/L System Potassium 4.2 3.5 - Normal (applies Potassium, [facility] [Mass/volume] in mmol/L 5.0 to non-numeric Serum Health Serum or Plasma mmol/L results) System Chloride 102 101 - Normal (applies Chloride, [facility] [Moles/volume] in mmol/L 111 to non-numeric Serum Health Serum or Plasma mmol/L results) System Carbon dioxide, 25.8 21.0 - Normal (applies CO2, Serum [facility] total mmol/L 31.0 to non-numeric Health [Moles/volume] in mmol/L results) System Serum or Plasma Total Protein 6.6 6.4 - Normal (applies Total Protein [facility] mg/dl 8.1 to non-numeric Health mg/dl results) System Glucose 90 65 - Normal (applies Glucose, [facility] [Mass/volume] in mg/dL 110 to non-numeric Serum Health Serum or Plasma mg/dL results) System Urea nitrogen 6 mg/dl 7 - 18 Below low normal Blood Urea [facility] [Mass/volume] in mg/dl Nitrogen, Health Serum or Plasma Serum System Creatinine 0.59 0.50 - Normal (applies Creatinine, [facility] [Mass/volume] in mg/dl 1.20 to non-numeric Serum [facility] Serum or Plasma mg/dl results) System Alkaline 41 42 - Below low normal Alkaline [facility] phosphatase {IU/L} 121 Phosphatase, Health isoenzymes IU/L Serum System [Enzymatic activity/volume] in Serum or Plasma by Heat stability Bilirubin direct 0.3 0.2 - Normal (applies Bilirubin, [facility] and total panel mg/dl 1.2 to non-numeric Serum Total [facility] [Mass/volume] - mg/dl results) System Serum or Plasma Direct Bilirubin 0.1 0.0 - Normal (applies Direct [facility] mg/dl 0.4 to non-numeric Bilirubin [facility] mg/dl results) System Aspartate 14 10 - 42 Normal (applies Aspartate [facility] aminotransferase {IU/L} IU/L to non-numeric Transaminase, [facility] [Enzymatic results) Serum System activity/volume] in Serum or Plasma by With P-5'-P Albumin 3.9 3.2 - Normal (applies Albumin, [facility] [Mass/volume] in {gm/dl} 5.5 to non-numeric Serum [facility] Serum or Plasma gm/dl results) System I. Phosphorus 4.1 2.6 - Normal (applies I. Phosphorus [facility] mg/dl 4.9 to non-numeric Health mg/dl results) System Alanine 11 10 - 42 Normal (applies Alanine [facility] aminotransferase {IU/L} IU/L to non-numeric Aminotransfer [facility] [Enzymatic results) ase, Serum System activity/volume] in Serum or Plasma Calcium 9.3 8.4 - Normal (applies Calcium, [facility] [Mass/volume] in mg/dl 10.2 to non-numeric Total Serum [facility] Serum or Plasma mg/dl results) System A/G Ratio 1.44 Normal (applies A/G Ratio [facility] to non-numeric Health results) System Urate 3.7 2.3 - Normal (applies Uric Acid, [facility] [Mass/volume] in mg/dl 7.5 to non-numeric Serum Health Serum or Plasma mg/dl results) System Anion gap in Serum 6.20 Normal (applies Anion Gap [facility] or Plasma mmol/L to non-numeric Health results) System Glomerular > 90 Normal (applies GFR [facility] filtration to non-numeric Health rate/1.73 sq results) System M.predicted [Volume Rate/Area] in Serum or Plasma by Creatinine-based formula (CKD-EPI) eGFR will provide clinicians with a more accurate indicator of renal function then the serum creatinine. The eGFR is automa tically calculated from an empiric formula (endorsed by the [employer] ion) which incorporates age, sex, and race.Clinicians may notice surprisingly low GFR's with serum creatinine valueswithin normal range- particularly in elderly wo men (with low muscle mass).In the hospital setting, the eGFR should add an element of safety in drug dosing, in assessing the risk of IV contrast administration, and in assessing vascular risk.The NKF staging system is as follows:Normal: eGFR >90 with no kidney markersStage 1: eGFR >90 with kidney markers*Stage 2: eGFR 60- 89Stage 3: eGFR 30-59Stage 4: eGFR 15-29Stage 5: eGFR <15 (usually requir ing dialysis)*Markers include: Proteinuria, Hematuria, abnormal imaging-studies, or other blood or urine test abnormalities ID Date Data Source [id number] 02/05/2016 01:22:00 PM EDT [facility] Name Value Range Interpretation Description Data Sup porting Code Source(s) Document(s ) Deprecated NO GROWTH Aerobic [facility] Bacteria Culture, Urine [facility] System identified in Urine by Aerobe culture ID Date Data Source [id number] 02/05/2016 01:22:00 PM EDT [facility] Name Value Range Interpretation Description Data Sup porting Code Source(s) Document(s ) Color Yellow Yellow Normal (applies Color [facility] to non-numeric Health results) System Appearance of CLEAR Clear Normal (applies Urine [facility] Urine to non-numeric Appearance Health results) System Specific 1.021 Normal (applies Urine Specific [facility] gravity of to non-numeric [facility] Urine results) System pH.. 5.0 4.6 - 8.0 Normal (applies pH.. [facility] {pH_unit pH units to non-numeric Health s} results) System Glucose, UA NEG < 50 mg/dl Normal (applies Glucose, UA [facility] to non-numeric [facility] results) System Protein NEG < 30 mg/dl Normal (applies Protein [facility] [Mass/volume] to non-numeric Health in Serum or results) System Plasma Bilirubin NEG Negative Normal (applies Bilirubin [facility] Urine Sm to Lg to non-numeric Urine Health results) System Urobilinogen < 2.0 Normal (applies Urobilinogen [facility] [Mass/volume] to non-numeric UA [facility] in Urine results) System Reference Range: Negative or <=2.0 Ketones NEG Negative Tr Normal (applies Ketones UA [facility] [Mass/volume] in to Lg to non-numeric Health S ystem Urine results) Nitrate+Nitrite Negative Negative Normal (applies Nitrite [facility] [Mass/volume] in Neg/Pos to non-numeric Health S ystem Unspecified results) specimen Leukocyte NEG Negative Tr Normal (applies Leukocyte [facility] esterase to Lg to non-numeric Esterase [facility] [Units/volume] in results) Concentration Urine Leukocytes 2 {/HPF} 0 - 2 /HPF Normal (applies White Blood Cells [facility] [#/volume] in to non-numeric Health Syst em Unspecified results) specimen by Automated count Red Blood Cells 1 {/HPF} 0 - 1 /HPF Normal (applies Red Blood Cells [facility] to non-numeric [facility] System results) Epithelial cells 1 {/HPF} 0 - 3 /HPF Normal (applies Epithelial [facility] ls [facility] [Presence] in to non-numeric Health Syst em Unspecified results) specimen by Wet preparation Hyaline casts 1 {/LPF} 0 - 1 /LPF Abnormal Hyaline Casts [facility] [#/area] in Urine (applies to Health Sys tem sediment by non-numeric Microscopy high results) power field Mucus MANY 0 - 1 /LPF Normal (applies Mucus [facility] to non-numeric [facility] System results) Urine Blood NEG Negative Sm Normal (applies Urine Blood [facility] to Lg to non-numeric [facility] System results) ID Date Data Source [id number] 01/17/2016 06:23:00 PM EDT [facility] Name Value Range Interpretation Description Data Sup porting Code Source(s) Document(s ) Type B Normal (applies Type [facility] to non-numeric [facility] results) D Ab [Titer] Positive Normal (applies Rh [facility] in Serum or to non-numeric Health System Plasma results) Antibody Negative Normal (applies Antibody [facility] Screen to non-numeric Screen [facility] System results) ID Date Data Source [id number] 01/17/2016 06:23:00 PM EDT [facility] Name Value Range Interpretation Description Data Sup porting Code Source(s) Document(s ) Color Yellow Yellow Normal (applies Color [facility] to non-numeric Health results) System Appearance of CLOUDY Clear Normal (applies Urine [facility] Urine to non-numeric Appearance Health results) System Specific 1.017 Normal (applies Urine Specific [facility] gravity of to non-numeric [facility] Urine results) System pH.. 5.0 4.6 - 8.0 Normal (applies pH.. [facility] {pH_unit pH units to non-numeric Health s} results) System Glucose, UA NEG < 50 mg/dl Normal (applies Glucose, UA [facility] to non-numeric [facility] results) System Protein NEG < 30 mg/dl Normal (applies Protein [facility] [Mass/volume] to non-numeric Health in Serum or results) System Plasma Bilirubin NEG Negative Normal (applies Bilirubin [facility] Urine Sm to Lg to non-numeric Urine Health results) System Urobilinogen < 2.0 Normal (applies Urobilinogen [facility] [Mass/volume] to non-numeric UA [facility] in Urine results) System Reference Range: Negative or <=2.0 Ketones > =80 Negative Tr Abnormal Ketones UA [facility] [Mass/volume] in to Lg (applies to Health Syst em Urine non-numeric results) Nitrate+Nitrite Negative Negative Normal (applies Nitrite [facility] [Mass/volume] in Neg/Pos to non-numeric Health S ystem Unspecified results) specimen Leukocyte Trace Negative Tr Abnormal Leukocyte [facility] esterase to Lg (applies to Esterase [facility] [Units/volume] in non-numeric Concentration Urine results) Leukocytes 5 {/HPF} 0 - 2 /HPF Normal (applies White Blood [facility] [#/volume] in to non-numeric Cells Health Syst em Unspecified results) specimen by Automated count Red Blood Cells 2 {/HPF} 0 - 1 /HPF Normal (applies Red Blood Cells [facility] to non-numeric [facility] results) Epithelial cells 11 {/HPF} 0 - 3 /HPF Normal (applies Epithelial [facility] ls [facility] [Presence] in to non-numeric Health Syst em Unspecified results) specimen by Wet preparation Mucus OCC 0 - 1 /LPF Normal (applies Mucus [facility] to non-numeric [facility] System results) Urine Blood NEG Negative Sm Normal (applies Urine Blood [facility] to Lg to non-numeric [facility] System results) ID Date Data Source [id number] 01/17/2016 06:23:00 PM EDT [facility] Name Value Range Interpretation Description Data Sup porting Code Source(s) Document(s ) Leukocytes 12.1 4.8 - Above high WBC Count [facility] [#/volume] in {10^3_u 10.8 normal Health Unspecified L} 10^3 uL System specimen by Automated count Erythrocytes 3.93 4.20 - Below low normal RBC Count [facility] [#/volume] in {10^6_u 5.40 Health Blood by L} 10^6 uL System Automated count Hemoglobin 11.9 12.0 - Below low normal Hemoglobin [facility] [Mass/volume] in {gm/dL} 16.0 Health Blood gm/dL System Hematocrit 35.7 % 37.0 - Below low normal Hematocrit [facility] [Volume 47.0 % Health Fraction] of System Blood Erythrocyte mean 90.8 fl 81.0 - Normal (applies MCV [facility] corpuscular 99.0 fl to non-numeric Health volume [Entitic results) System volume] by Automated count Erythrocyte mean 30.3 pg 27.0 - Normal (applies MCH [facility] corpuscular 31.0 pg to non-numeric Health hemoglobin results) System [Entitic mass] by Automated count Erythrocyte mean 33.3 30.0 - Normal (applies MCHC [facility] corpuscular {gm/dL} 35.0 to non-numeric Health hemoglobin gm/dL results) System concentration [Mass/volume] by Automated count Erythrocyte 12.0 % 11.5 - Normal (applies RDW-CV [facility] distribution 14.5 % to non-numeric Health width [Entitic results) System volume] by Automated count Platelets 256 130 - Normal (applies Platelet Count [facility] [#/volume] in {10^3_u 400 to non-numeric Health Plasma by L} 10^3 uL results) System Automated count Platelet mean 11.0 fl 8.6 - Normal (applies MPV [facility] volume [Entitic 13.5 fl to non-numeric Health volume] in Blood results) System by Automated count Nucleated 0.0 0.0 - Normal (applies NRBC % [facility] erythrocytes {/100_W 0.2 to non-numeric Health [#/volume] in BC} /100 results) System Body fluid WBC NRBC # 0.00 0.00 - Normal (applies NRBC # [facility] {10^6_u 0.01 to non-numeric Health L} 10^6 uL results) System Neutrophils/100 69.5 % 55.0 - Normal (applies Neutrophil % [facility] leukocytes in 75.0 % to non-numeric Health Blood by results) System Automated count Neutrophils 8.4 2.6 - Above high Neutrophil # [facility] [#/volume] in {10^3_u 8.1 normal Health Body fluid L} 10^3 uL System Lymphocytes 20.9 % 15.0 - Normal (applies Lymphocyte % [facility] [#/volume] in 41.0 % to non-numeric Health Blood by results) System Automated count Lymphocyte # 2.5 1.0 - Normal (applies Lymphocyte # [facility] {10^3_u 4.8 to non-numeric Health L} 10^3 uL results) System Monocytes/100 7.7 % 2.0 - Normal (applies Monocyte % [facility] leukocytes in 9.0 % to non-numeric Health Blood results) System Monocytes 0.9 0.1 - Normal (applies Monocyte # [facility] [#/volume] in {10^3_u 1.0 to non-numeric Health Blood by Manual L} 10^3 uL results) System count Eosinophils/100 1.2 % 0.0 - Normal (applies Eosinophil % [facility] leukocytes in 5.0 % to non-numeric Health Unspecified results) System specimen Eosinophils 0.14 0.00 - Normal (applies Eosinophil # [facility] [#/volume] in {10^3_u 0.50 to non-numeric Health Blood L} 10^3 uL results) System Basophils/100 0.5 % 0.0 - Normal (applies Basophil % [facility] leukocytes in 1.0 % to non-numeric Health Unspecified results) System specimen by Manual count Basophils 0.06 0.00 - Normal (applies Basophil # [facility] [#/volume] in {10^3_u 0.10 to non-numeric Health Blood by L} 10^3 uL results) System Automated count Immature 0.03 0.00 - Normal (applies Immature [facility] Granulocytes # {10^3_u 0.09 to non-numeric Granulocytes # [facility] L} 10^3 uL results) System Immature 0.2 % 0.0 - Normal (applies Immature [facility] Granulocytes % 0.8 % to non-numeric Granulocytes % [facility] results) System ID Date Data Source [id number] 01/17/2016 06:23:00 PM EDT [facility] System Name Value Range Interpretation Description Data Sup porting Code Source(s) Document(s ) hCG 68120.00 <5 Above high hCG [facility] Quantitative {mIU/mL} mIU/mL normal [facility] Negative = <5 mIU/mLAPPROXIMATE GEST. AG E APPROXIMATE HCG mIU/ML 0.2 - 1 week 5 - 50 1 - 2 w eeks 50 - 500 2 - 3 weeks 100 - 5,000 3 - 4 weeks 500 - 10,000 4 - 5 weeks 1,000 - 50,000 5 - 6 weeks 10,000 - 100,000 6 - 8 weeks 15,000 - 200,000 8 - 12 weeks 10,000 - 1 00,000HCG levels between 5-25 mIU/mL may be indicative of early . Correlati on with other clinical findings and/or repeat of HCG quantitative testing recommened. ID Date Data Source [id number] 01/17/2016 06:23:00 PM EDT [facility] System Name Value Range Interpretation Description Data Sup porting Code Source(s) Document(s ) Sodium 136 135 - Normal (applies Sodium, Serum [facility] [Moles/volume] in mmol/L 145 to non-numeric Health Serum or Plasma mmol/L results) System Potassium 4.0 3.5 - Normal (applies Potassium, [facility] [Mass/volume] in mmol/L 5.0 to non-numeric Serum [facility] Serum or Plasma mmol/L results) System Chloride 103 101 - Normal (applies Chloride, [facility] [Moles/volume] in mmol/L 111 to non-numeric Serum [facility] Serum or Plasma mmol/L results) System Carbon dioxide, 23.5 21.0 - Normal (applies CO2, Serum [facility] total mmol/L 31.0 to non-numeric [facility] [Moles/volume] in mmol/L results) System Serum or Plasma Total Protein 7.7 6.4 - Normal (applies Total Protein [facility] mg/dl 8.1 to non-numeric [facility] mg/dl results) System Glucose 86 65 - Normal (applies Glucose, [facility] [Mass/volume] in mg/dL 110 to non-numeric Serum [facility] Serum or Plasma mg/dL results) System Urea nitrogen 10 7 - 18 Normal (applies Blood Urea [facility] [Mass/volume] in mg/dl mg/dl to non-numeric Nitrogen, Health Serum or Plasma results) Serum System Creatinine 0.64 0.50 - Normal (applies Creatinine, [facility] [Mass/volume] in mg/dl 1.20 to non-numeric Serum [facility] Serum or Plasma mg/dl results) System Alkaline 44 42 - Normal (applies Alkaline [facility] phosphatase {IU/L} 121 to non-numeric Phosphatase, Health isoenzymes IU/L results) Serum System [Enzymatic activity/volume] in Serum or Plasma by Heat stability Bilirubin direct 0.4 0.2 - Normal (applies Bilirubin, [facility] and total panel mg/dl 1.2 to non-numeric Serum Total [facility] [Mass/volume] - mg/dl results) System Serum or Plasma Direct Bilirubin 0.1 0.0 - Normal (applies Direct [facility] mg/dl 0.4 to non-numeric Bilirubin [facility] mg/dl results) System Aspartate 16 10 - 42 Normal (applies Aspartate [facility] aminotransferase {IU/L} IU/L to non-numeric Transaminase, [facility]al th [Enzymatic results) Serum System activity/volume] in Serum or Plasma by With P-5'-P Albumin 4.5 3.2 - Normal (applies Albumin, [facility] [Mass/volume] in {gm/dl} 5.5 to non-numeric Serum [facility] Serum or Plasma gm/dl results) System I. Phosphorus 2.8 2.6 - Normal (applies I. Phosphorus [facility] mg/dl 4.9 to non-numeric Health mg/dl results) System Alanine 11 10 - 42 Normal (applies Alanine [facility] aminotransferase {IU/L} IU/L to non-numeric Aminotransfer [facility]al [facility] [Enzymatic results) ase, Serum System activity/volume] in Serum or Plasma Calcium 9.5 8.4 - Normal (applies Calcium, [facility] [Mass/volume] in mg/dl 10.2 to non-numeric Total Serum Health Serum or Plasma mg/dl results) System A/G Ratio 1.41 Normal (applies A/G Ratio [facility] to non-numeric Health results) System Urate 4.8 2.3 - Normal (applies Uric Acid, [facility] [Mass/volume] in mg/dl 7.5 to non-numeric Serum Health Serum or Plasma mg/dl results) System Anion gap in Serum 9.50 Normal (applies Anion Gap [facility] or Plasma mmol/L to non-numeric Health results) System Glomerular > 90 Normal (applies GFR [facility] filtration to non-numeric Health rate/1.73 sq results) System M.predicted [Volume Rate/Area] in Serum or Plasma by Creatinine-based formula (CKD-EPI) eGFR will provide clinicians with a more accurate indicator of renal function then the serum creatinine. The eGFR is automa tically calculated from an empiric formula (endorsed by the [employer] ion) which incorporates age, sex, and race.Clinicians may notice surprisingly low GFR's with serum creatinine valueswithin normal range- particularly in elderly wo men (with low muscle mass).In the hospital setting, the eGFR should add an element of safety in drug dosing, in assessing the risk of IV contrast administration, and in assessing vascular risk.The NKF staging system is as follows:Normal: eGFR >90 with no kidney markersStage 1: eGFR >90 with kidney markers*Stage 2: eGFR 60- 89Stage 3: eGFR 30-59Stage 4: eGFR 15-29Stage 5: eGFR <15 (usually requir ing dialysis)*Markers include: Proteinuria, Hematuria, abnormal imaging-studies, or other blood or urine test abnormalities ID Date Data Source [id number] 01/11/2016 11:15:34 AM [facility] System Name Value Range Interpretation Description Data Sup porting Code Source(s) Document(s ) Leukocytes 15.7 4.8 - Above high normal WBC Count [facility] [#/volume] in {10^3_uL 10.8 Health System Unspecified } 10^3 uL specimen by Automated count Comp. downtime analyzed 01/10/16 Erythrocytes 4.67 {10^6_uL} 4.20 - Normal (applies RBC Count [facility] [#/volume] in 5.40 to non-numeric Health Syst em Blood by Automated 10^6 uL results) count Hemoglobin 14.0 {gm/dL} 12.0 - Normal (applies Hemoglobin [facility] [Mass/volume] in 16.0 to non-numeric Health S ystem Blood gm/dL results) Hematocrit [Volume 41.8 % 37.0 - Normal (applies Hematocrit [facility] Fraction] of Blood 47.0 % to non-numeric Health System results) Erythrocyte mean 89.5 fl 81.0 - Normal (applies MCV [facility] corpuscular volume 99.0 fl to non-numeric Health System [Entitic volume] results) by Automated count Erythrocyte mean 30.0 pg 27.0 - Normal (applies MCH [facility] corpuscular 31.0 pg to non-numeric Health System hemoglobin results) [Entitic mass] by Automated count Erythrocyte mean 33.5 {gm/dL} 30.0 - Normal (applies MCHC [facility] corpuscular 35.0 to non-numeric Health System hemoglobin gm/dL results) concentration [Mass/volume] by Automated count Erythrocyte 11.9 % 11.5 - Normal (applies RDW-CV [facility] distribution width 14.5 % to non-numeric Health System [Entitic volume] results) by Automated count Platelets 378 {10^3_uL} 130 - Normal (applies Platelet Count [facility] [#/volume] in 400 10^3 to non-numeric Health Syst em Plasma by uL results) Automated count Platelet mean 9.6 fl 8.6 - Normal (applies MPV [facility] volume [Entitic 13.5 fl to non-numeric Health Sy stem volume] in Blood results) by Automated count Monocytes 7.5 {10^3_uL} 0.1 - Above high Monocyte # [facility] [#/volume] in 1.0 10^3 normal Health System Blood by Manual uL count Eosinophils 0.80 {10^3_uL} 0.00 - Above high Eosinophil # [facility] [#/volume] in 0.50 normal Health System Blood 10^3 uL Neutrophils 10.2 {10^3_uL} 2.6 - Above high Neutrophil # [facility] [#/volume] in Body 8.1 10^3 normal Health Syst em fluid uL Basophils 0.50 {10^3_uL} 0.00 - Above high Basophil # [facility] [#/volume] in 0.10 normal Health System Blood by Automated 10^3 uL count Lymphocyte # 4.1 {10^3_uL} 1.0 - Normal (applies Lymphocyte # [facility] 4.8 10^3 to non-numeric Health System uL results) Neutrophils/100 64.8 % 55.0 - Normal (applies Neutrophil % [facility] fl[facility] leukocytes in 75.0 % to non-numeric Health Syst em Blood by Automated results) count Monocytes/100 7.5 % 2.0 - Normal (applies Monocyte % [facility] leukocytes in 9.0 % to non-numeric Health Syst em Blood results) Eosinophils/100 0.8 % 0.0 - Normal (applies Eosinophil % [facility] leukocytes in 5.0 % to non-numeric Health Syst em Unspecified results) specimen Basophils/100 0.5 % 0.0 - Normal (applies Basophil % [facility] leukocytes in 1.0 % to non-numeric Health Syst em Unspecified results) specimen by Manual count Lymphocytes 26.1 % 15.0 - Normal (applies Lymphocyte % [facility] [#/volume] in 41.0 % to non-numeric Health Syst em Blood by Automated results) count ID Date Data Source [id number] 01/11/2016 11:04:04 AM EDT [facility] Name Value Range Interpretation Description Data Sup porting Code Source(s) Document(s ) Color yellow Yellow Normal (applies Color [facility] to non-numeric Health results) System Appearance of cloudy Clear Normal (applies Urine [facility] Urine to non-numeric Appearance Health results) System Specific 1.025 Normal (applies Urine Specific [facility] gravity of to non-numeric [facility] Urine results) System pH.. 5.0 4.6 - 8.0 Normal (applies pH.. [facility] {pH_unit pH units to non-numeric Health s} results) System Glucose, UA neg < 50 mg/dl Normal (applies Glucose, UA [facility] to non-numeric Health results) System Protein neg < 30 mg/dl Normal (applies Protein [facility] [Mass/volume] to non-numeric Health in Serum or results) System Plasma Bilirubin neg Negative Normal (applies Bilirubin [facility] Urine Sm to Lg to non-numeric Urine Health results) System Urobilinogen < 2.0 Normal (applies Urobilinogen [facility] [Mass/volume] to non-numeric UA Health in Urine results) System Reference Range: Negative or <=2.0 Ketones 80 {Tr_to_Lg} Negative Tr Abnormal Ketones UA [facility] [Mass/volume] in to Lg (applies to Health Syst em Urine non-numeric results) Nitrate+Nitrite positive Negative Abnormal Nitrite [facility] [Mass/volume] in Neg/Pos (applies to Health Syst em Unspecified non-numeric specimen results) Leukocyte moderate Negative Tr Abnormal Leukocyte [facility] esterase to Lg (applies to [facility] [Units/volume] non-numeric Concentration in Urine results) Leukocytes 12 {/HPF} 0 - 2 /HPF Normal White Blood [facility] [#/volume] in (applies to Cells [facility] Unspecified non-numeric specimen by results) Automated count Red Blood Cells 18 {/HPF} 0 - 1 /HPF Normal Red Blood Cells [facility] (applies to [facility] non-numeric results) Epithelial Cast 12 {/LPF} 0 /LPF Normal Epithelial Cast [facility] (applies to [facility] non-numeric results) Mucus many 0 - 1 /LPF Normal Mucus [facility] (applies to [facility] non-numeric results) Urine Blood (2+)MOD Negative Sm Abnormal Urine Blood [facility] to Lg (applies to Health System non-numeric results) ID Date Data Source [id number] 01/11/2016 03:59:00 AM EDT [facility] Name Value Range Interpretation Description Data Sup porting Code Source(s) Document(s ) Type B Normal (applies Type [facility] to non-numeric [facility] results) D Ab [Titer] Positive Normal (applies Rh [facility] in Serum or to non-numeric Health System Plasma results) Antibody Negative Normal (applies Antibody [facility] Screen to non-numeric Screen [facility] results) ID Date Data Source [id number] 01/11/2016 03:59:00 AM EDT [facility] Name Value Range Interpretation Description Data Sup porting Code Source(s) Document(s ) hCG 72957.00 <5 Above high hCG [facility] Quantitative {mIU/mL} mIU/mL normal Quantitative [facility] result done on 01/11/16@ 1:19amNegative = <5 mIU/mLAPPROXIMATE GEST. AGE APPROXIMATE HCG mIU/ML 0.2 - 1 week 5 - 50 1 - 2 weeks 50 - 500 2 - 3 weeks 100 - 5,000 3 - 4 weeks 500 - 10,000 4 - 5 weeks 1,000 - 50,000 5 - 6 weeks 10,000 - 100,000 6 - 8 weeks 15,000 - 200,000 8 - 12 weeks 10,000 - 100,000HCG levels between 5-25 mIU/mL may be indicative of early p regnancy. Correlation with other clinical findings and/or repeat of HCG quantitati ve testing recommened. ID Date Data Source [id number] 01/11/2016 03:59:00 AM EDT [facility] Name Value Range Interpretation Description Data Sup porting Code Source(s) Document(s ) Sodium 135 135 - Normal (applies Sodium, Serum [facility] [Moles/vol mmol/L 145 to non-numeric [facility] ume] in mmol/L results) Serum or Plasma result done on 01/11/16 @ 1:31am Potassium 4.0 mmol/L 3.5 - 5.0 Normal (applies Potassium, [facility] [Mass/volume] in mmol/L to non-numeric Serum [facility] Serum or Plasma results) Chloride 98 mmol/L 101 - 111 Below low Chloride, [facility] [Moles/volume] in mmol/L normal Serum [facility] Serum or Plasma Carbon dioxide, 24.7 21.0 - Normal (applies CO2, Serum [facility] total [Moles/volume] mmol/L 31.0 to non-numeric [facility] in Serum or Plasma mmol/L results) Total Protein 8.9 mg/dl 6.4 - 8.1 Above high Total Protein [facility] mg/dl normal [facility] Glucose 66 mg/dL 65 - 110 Normal (applies Glucose, Serum [facility] [Mass/volume] in mg/dL to non-numeric [facility] Serum or Plasma results) Urea nitrogen 12 mg/dl 7 - 18 Normal (applies Blood Urea [facility] [Mass/volume] in mg/dl to non-numeric Nitrogen, [facility] Serum or Plasma results) Serum Creatinine 0.76 mg/dl 0.50 - Normal (applies Creatinine, [facility] [Mass/volume] in 1.20 mg/dl to non-numeric Serum [facility] Serum or Plasma results) Alkaline phosphatase 63 {IU/L} 42 - 121 Normal (applies Alkaline [facility] isoenzymes IU/L to non-numeric Phosphatase, [facility] [Enzymatic results) Serum activity/volume] in Serum or Plasma by Heat stability Bilirubin.total 0.6 mg/dl 0.2 - 1.2 Normal (applies Bilirubin, [facility] [Mass/volume] in mg/dl to non-numeric Serum [facility] Serum or Plasma results) Direct Bilirubin 0.1 mg/dl 0.0 - 0.4 Normal (applies Direct [facility] mg/dl to non-numeric Bilirubin [facility] results) Aspartate 17 {IU/L} 10 - 42 Normal (applies Aspartate [facility] aminotransferase IU/L to non-numeric Transaminase, [facility] [Enzymatic results) Serum activity/volume] in Serum or Plasma by With P-5'-P Albumin 5.2 3.2 - 5.5 Normal (applies Albumin, Serum [facility] [Mass/volume] in {gm/dl} gm/dl to non-numeric Health S ystem Serum or Plasma results) I. Phosphorus 4.2 mg/dl 2.6 - 4.9 Normal (applies I. Phosphorus [facility] mg/dl to non-numeric [facility] System results) Alanine 12 {IU/L} 10 - 42 Normal (applies Alanine [facility] aminotransferase IU/L to non-numeric Aminotransfera [facility] [Enzymatic results) se, Serum activity/volume] in Serum or Plasma Calcium 10.3 mg/dl 8.4 - 10.2 Above high Calcium, Total [facility] [Mass/volume] in mg/dl normal Serum [facility] Serum or Plasma A/G Ratio 1.41 Normal (applies A/G Ratio [facility] to non-numeric Health System results) Urate [Mass/volume] 5.7 mg/dl 2.3 - 7.5 Normal (applies Uric Acid, [facility] in Serum or Plasma mg/dl to non-numeric Serum Health System results) Anion gap in Serum 12.30 Normal (applies Anion Gap [facility] or Plasma mmol/L to non-numeric Health System results) Glomerular 85.15 Normal (applies GFR [facility] filtration rate/1.73 to non-numeric [facility] sq M.predicted results) [Volume Rate/Area] in Serum or Plasma by Creatinine-based formula (CKD-EPI) eGFR will provide clinicians with a more accurate indicator of renal function then the serum creatinine. The eGFR is automa tically calculated from an empiric formula (endorsed by the [employer] ion) which incorporates age, sex, and race.Clinicians may notice surprisingly low GFR's with serum creatinine valueswithin normal range- particularly in elderly wo men (with low muscle mass).In the hospital setting, the eGFR should add an element of safety in drug dosing, in assessing the risk of IV contrast administration, and in assessing vascular risk.The NKF staging system is as follows:Normal: eGFR >90 with no kidney markersStage 1: eGFR >90 with kidney markers*Stage 2: eGFR 60- 89Stage 3: eGFR 30-59Stage 4: eGFR 15-29Stage 5: eGFR <15 (usually requir ing dialysis)*Markers include: Proteinuria, Hematuria, abnormal imaging-studies, or other blood or urine test abnormalities ID Date Data Source [id number] 01/10/2016 09:32:00 PM EDT [facility] Name Value Range Interpretation Description Data Sup porting Code Source(s) Document(s ) Color Yellow Yellow Normal (applies Color [facility] to non-numeric Health results) System Appearance of CLOUDY Clear Normal (applies Urine [facility] Urine to non-numeric Appearance Health results) System Specific 1.024 Normal (applies Urine Specific [facility] gravity of to non-numeric [facility] Urine results) System pH.. 5.0 4.6 - 8.0 Normal (applies pH.. [facility] {pH_unit pH units to non-numeric Health s} results) System Glucose, UA NEG < 50 mg/dl Normal (applies Glucose, UA [facility] to non-numeric Health results) System Protein NEG < 30 mg/dl Normal (applies Protein [facility] [Mass/volume] to non-numeric Health in Serum or results) System Plasma Bilirubin NEG Negative Normal (applies Bilirubin [facility] Urine Sm to Lg to non-numeric Urine Health results) System Urobilinogen < 2.0 Normal (applies Urobilinogen [facility] [Mass/volume] to non-numeric [facility] in Urine results) System Reference Range: Negative or <=2.0 Ketones > =80 Negative Tr Abnormal Ketones UA [facility] [Mass/volume] in to Lg (applies to Health Syst em Urine non-numeric results) Nitrate+Nitrite Positive Negative Abnormal Nitrite [facility] [Mass/volume] in Neg/Pos (applies to Health Syst em Unspecified non-numeric specimen results) Leukocyte Moderate Negative Tr Abnormal Leukocyte [facility] esterase to Lg (applies to [facility] [Units/volume] in non-numeric Concentration Urine results) Leukocytes 16 {/HPF} 0 - 2 /HPF Normal (applies White Blood [facility] [#/volume] in to non-numeric Cells Health Syst em Unspecified results) specimen by Automated count Red Blood Cells 10 {/HPF} 0 - 1 /HPF Normal (applies Red Blood Cells [facility] to non-numeric [facility] System results) Epithelial cells 23 {/HPF} 0 - 3 /HPF Normal (applies Epithelial Korina ls [facility] [Presence] in to non-numeric Health Syst em Unspecified results) specimen by Wet preparation Mucus FEW 0 - 1 /LPF Normal (applies Mucus [facility] to non-numeric Health System results) Bacteria FEW 0 - 5 /HPF Normal (applies Bacteria [facility] [Presence] in to non-numeric Health Syst em Unspecified results) specimen Urine Blood SM(1+) Negative Sm Abnormal Urine Blood [facility] to Lg (applies to Health System non-numeric results) ID Date Data Source [id number] 07/04/2013 01:23:00 AM EDT [facility] Name Value Range Interpretation Description Data Sup porting Code Source(s) Document(s ) Color [place] Normal (applies Color [facility] ow to non-numeric Health results) System Appearance of CLEAR Clear Normal (applies Urine [facility] Urine to non-numeric Appearance Health results) System Specific 1.003 Normal (applies Urine Specific [facility] gravity of to non-numeric [facility] Urine results) System pH.. 5.0 4.6 - 8.0 Normal (applies pH.. [facility] {pH_units} pH units to non-numeric Health results) System Glucose, UA NEG Negative Normal (applies Glucose, UA [facility] mg/dl to non-numeric Health results) System Protein NEG 0.0 - Normal (applies Protein [facility] [Mass/volume] 30.0 to non-numeric Health in Serum or mg/dl results) System Plasma Bilirubin NEG Negative Normal (applies Bilirubin [facility] Urine to non-numeric Urine Health results) System Urobilinogen Less than Normal (applies Urobilinogen [facility] [Mass/volume] 2.0 to non-numeric [facility] in Urine Reference results) System Range: Negative or <=2.0 Ketones 10 mg/dl Negative Abnormal Ketones UA [facility] [Mass/volume] mg/dl (applies to Health in Urine non-numeric System results) Nitrate+Nitrit Negative Negative Normal (applies Nitrite [facility] to non-numeric Health [Mass/volume] results) System in Unspecified specimen Leukocyte NEG Negative Normal (applies Leukocyte [facility] esterase to non-numeric [facility] [Units/volume] results) Concentration System in Urine Leukocytes 1 {/HPF} 0 - 2 Normal (applies White Blood [facility] [#/volume] in /HPF to non-numeric Cells Health Unspecified results) System specimen by Automated count Red Blood 1 {/HPF} 0 - 1 Normal (applies Red Blood [facility] Cells /HPF to non-numeric Cells Health results) System Epithelial 4 {/HPF} 0 - 3 Normal (applies Epithelial [facility] cells /HPF to non-numeric Cells Health [Presence] in results) System Unspecified specimen by Wet preparation Urine Blood NEG Negative Normal (applies Urine Blood [facility] to non-numeric Health results) System ID Date Data Source [id number] 07/29/2012 09:40:00 PM EDT [facility] Name Value Range Interpretation Description Data Sup porting Code Source(s) Document(s ) HCG NEGATIVE Negative Normal (applies HCG [facility] Qualitative mIU/ml to non-numeric Qualitative Health results) System Default Normal RangesNegative <5Indeterm inate 5-25(Please repeat in 2 days.)Positive >25 ID Date Data Source [id number] 07/29/2012 09:40:00 PM EDT [facility] Name Value Range Interpretation Description Data Sup porting Code Source(s) Document(s ) Leukocytes 13.5 4.8 - Above high WBC Count [facility] [#/volume] in {10\\S\\3_ 10.8 normal Health Unspecified uL} 10\\S\\3 System specimen by uL Automated count Erythrocytes 4.23 3.80 - Normal (applies RBC Count [facility] [#/volume] in {10\\S\\6_ 5.20 to non-numeric Health Blood by uL} 10\\S\\6 results) System Automated count uL Hemoglobin 12.2 12.0 - Normal (applies Hemoglobin, [facility] [Mass/volume] in {gm/dL} 16.0 to non-numeric Whole Blood Health Blood gm/dL results) System Hematocrit 37.1 % 36.0 - Normal (applies Hematocrit, [facility] [Volume 46.0 % to non-numeric Whole Blood Health Fraction] of results) System Blood Erythrocyte mean 28.8 pg 26.0 - Normal (applies MCH [facility] corpuscular 34.0 pg to non-numeric Health hemoglobin results) System [Entitic mass] by Automated count Erythrocyte mean 87.7 fl 80.0 - Normal (applies MCV [facility] corpuscular 100.0 to non-numeric Health volume [Entitic fl results) System volume] by Automated count Erythrocyte mean 32.9 33.0 - Below low normal MCHC [facility] corpuscular {gm/dL} 37.0 Health hemoglobin gm/dL System concentration [Mass/volume] by Automated count Erythrocyte 13.6 % 11.5 - Normal (applies RDW [facility] distribution 14.5 % to non-numeric Health width [Entitic results) System volume] by Automated count Platelet mean 9.3 fl 7.4 - Normal (applies MPV [facility] volume [Entitic 10.4 fl to non-numeric Health volume] in Blood results) System by Automated count Platelets 327 130 - Normal (applies Platelet [facility] [#/volume] in {10\\S\\3_ 400 to non-numeric Count Health Plasma by uL} 10\\S\\3 results) System Automated count uL Monocytes 0.8 Normal (applies Monocyte [facility] [#/volume] in {10\\S\\3_ to non-numeric Count Health Blood by Manual uL} results) System count Neutrophils 9.8 Normal (applies Absolute [facility] [#/volume] in {10\\S\\3_ to non-numeric Neutrophil Health Body fluid uL} results) Count System Eosinophils 0.5 Normal (applies Eosinophil [facility] [#/volume] in {10\\S\\3} to non-numeric Count Blood Health Blood results) System Basophils 0.04 Normal (applies Basophil [facility] [#/volume] in {10\\S\\3_ to non-numeric Count Health Blood by uL} results) System Automated count Lymphocyte 2.3 Normal (applies Lymphocyte [facility] Absolute {10\\S\\3_ to non-numeric Absolute Health uL} results) System Neutrophils/100 72.7 % Normal (applies Neutrophil % [facility] fl[facility]ncio leukocytes in to non-numeric Health Blood by results) System Automated count Monocytes/100 5.8 % 6.0 - Below low normal Monocyte % [facility] leukocytes in 9.0 % Health Blood System Eosinophils/100 3.9 % 1.0 - Above high Eosinophil % [facility] leukocytes in 3.0 % normal Health Unspecified System specimen Basophils/100 0.3 % 0.0 - Normal (applies Basophil % [facility] leukocytes in 1.0 % to non-numeric Health Unspecified results) System specimen by Manual count Lymphocytes 17.3 % 21.0 - Below low normal Lymphocyte % [facility] [#/volume] in 51.0 % Health Blood by System Automated count ID Date Data Source [id number] 07/29/2012 09:40:00 PM EDT [facility] Name Value Range Interpretation Description Data Sup porting Code Source(s) Document(s ) Sodium 138 137 - Normal (applies Sodium, Serum [facility] [Moles/volume mmol/L 145 to non-numeric Health ] in Serum or mmol/L results) System Plasma Potassium 3.7 3.6 - Normal (applies Potassium, [facility] [Mass/volume] mmol/L 5.0 to non-numeric Serum Health in Serum or mmol/L results) System Plasma Chloride 105 98 - 107 Normal (applies Chloride, [facility] [Moles/volume mmol/L mmol/L to non-numeric Serum Health ] in Serum or results) System Plasma Carbon 21.0 22.0 - Below low normal CO2, Serum [facility] dioxide, mmol/L 30.0 Health total mmol/L System [Moles/volume ] in Serum or Plasma Glucose 122 65 - 105 Above high normal Glucose, Serum [facility] [Mass/volume] mg/dL mg/dL Health in Serum or System Plasma Creatinine 0.70 0.70 - Normal (applies Creatinine, [facility] [Mass/volume] mg/dl 1.20 to non-numeric Serum Health in Serum or mg/dl results) System Plasma Urea nitrogen 11 mg/dl 7 - 18 Normal (applies Blood Urea [facility] [Mass/volume] mg/dl to non-numeric Nitrogen, Health in Serum or results) Serum System Plasma Calcium 9.1 8.4 - Normal (applies Calcium, Total [facility] [Mass/volume] mg/dl 10.2 to non-numeric Serum Health in Serum or mg/dl results) System Plasma Anion gap in 12.00 8.00 - Normal (applies Anion Gap [facility] Serum or mmol/L 12.00 to non-numeric Health Plasma mmol/L results) System ID Date Data Source [id number] 07/29/2012 09:40:00 PM EDT [facility] Name Value Range Interpretation Description Data Sup porting Code Source(s) Document(s ) Alcohol NON-DETECTE Normal (applies Alcohol Ethyl, [facility] Ethyl, D None to non-numeric Blood Health System Blood Detected results) ID Date Data Source [id number] 01/23/2012 11:00:00 AM EDT [facility] Name Value Range Interpretation Description Data Sup porting Code Source(s) Document(s ) Color YELLOW YELLOW Normal (applies Color [facility] to non-numeric Health results) System Appearance of CLEAR CLEAR Normal (applies Urine [facility] Urine to non-numeric Appearance Health results) System pH.. 7.5 4.6 - Normal (applies pH.. [facility] {pH_units} 8.0 pH to non-numeric Health units results) System Specific Less than Normal (applies Urine [facility] gravity of =1.005 to non-numeric Specific Health Urine results) [facility] Protein NEGATIVE Normal (applies Protein [facility] [Mass/volume] to non-numeric Health in Serum or results) System Plasma Glucose, UA NEGATIVE Normal (applies Glucose, UA [facility] to non-numeric Health results) System Negative Bilirubin Urine NEGATIVE Normal (applies to Bilirubin Urine [facility] non-numeric results) System Ketones NEGATIVE Normal (applies to Ketones UA [facility] [Mass/volume] in non-numeric results) Sy stem Urine Negative Urobilinogen 0.20 {eu/dL} 0.20 - Normal (applies Urobilinogen UA [facility] [Mass/volume] in 1.00 to non-numeric Health S ystem Urine eu/dL results) Nitrate+Nitrite NEGATIVE Normal (applies Nitrite [facility] [Mass/volume] in to non-numeric Health S ystem Unspecified results) specimen Negative Leukocytes 0-2 Normal (applies to White Blood Cells [facility] [#/volume] in non-numeric Health System Unspecified results) specimen by Automated count Leukocyte esterase NEGATIVE Normal (applies to Leukocyte Es terase [facility] [Units/volume] in non-numeric Concentration Health System Urine results) Negative Transitional 0-2 Normal (applies to Transitional [facility] Epithelial non-numeric Epithelial Health System results) Red Blood Cells 0-2 Normal (applies to Red Blood Cells [facility] non-numeric Health System results) Bacteria [Presence] RARE Normal (applies to Bacteria [facility] in Unspecified non-numeric Health System specimen results) Epithelial cells 0-2 Normal (applies to Epithelial Korina ls [facility] [Presence] in non-numeric Health System Unspecified results) specimen by Wet preparation Urine Blood NEGATIVE Normal (applies to Urine Blood [facility] non-numeric [facility] System results) ID Date Data Source [id number] 01/23/2012 11:00:00 AM EDT [facility] Name Value Range Interpretation Description Data Sup porting Code Source(s) Document(s ) Amphetamine Negative Negative Normal (applies Amphetamine [facility] [Mass/volume] ng/ml to non-numeric Level, Urine Health in Urine results) System Cut-off = 1000 ng/mL Barbiturates Negative Negative Normal (applies Barbiturate [facility] [Mass/volume] in ng/ml to non-numeric Screen, Urine Heal th System Urine by Screen results) method Cut-off = 200 ng/mL Cocaine Negative Negative Normal (applies Cocaine [facility] metabolites.other ng/ml to non-numeric Metabolite Health System [Mass/volume] in results) Screen, Urine Urine Cut-off = 300 ng/mL Benzodiazepines Negative Negative Normal Benzodiazepines, [facility] [Mass/volume] in ng/mL (applies to Urine Health Urine non-numeric System results) Cut-off = 200 ng/mL Methadone Negative Normal (applies to Methadone Level, [facility] [Mass/volume] in non-numeric Urine System Urine results) Cut-off = 300 ng/mL Phencyclidine Negative Negative Normal (applies Phencyclidine, [facility] [Mass/volume] in ng/ml to non-numeric Urine Health S ystem Urine results) Cut-off = 25 ng/mL Opiate 300, Negative Negative ng/ml Normal (applies to Opiate 300, [facility] Urine non-numeric Urine Health System results) Cut-off = 300 ng/mL THC Negative Negative ng/mL Normal (applies to THC [facility] non-numeric results) Cut-off = 50 ng/mL ID Date Data Source [id number] 01/10/2012 11:10:00 PM EDT [facility] Name Value Range Interpretation Description Data Sup porting Code Source(s) Document(s ) Strep Group Negative Normal (applies to Strep Group A [facility] fl[facility] A Direct non-numeric Direct Antigen Health System Antigen results) Result Reporting|Telephone|......| 2011 at 11:38 PMCalled to:Gay Name:Readback by: 01/10/2012 / 11:38 PM ID Date Data Source [id number] 01/10/2012 06:19:35 PM EDT [facility] Name Value Range Interpretation Description Data Sup porting Code Source(s) Document(s ) Leukocytes 12.7 4.8 - Above high WBC Count [facility] [#/volume] in {10\\S\\3_ 10.8 normal Health Unspecified uL} 10\\S\\3 System specimen by uL Automated count Hemoglobin 12.6 12.0 - Normal (applies Hemoglobin, [facility] [Mass/volume] in {gm/dL} 16.0 to non-numeric Whole Blood Health Blood gm/dL results) System Hematocrit 39.0 % 36.0 - Normal (applies Hematocrit, [facility] [Volume 46.0 % to non-numeric Whole Blood Health Fraction] of results) System Blood Erythrocytes 4.39 3.80 - Normal (applies RBC Count [facility] [#/volume] in {10\\S\\6_ 5.20 to non-numeric Health Blood by uL} 10\\S\\6 results) System Automated count uL Erythrocyte mean 28.7 pg 26.0 - Normal (applies MCH [facility] corpuscular 34.0 pg to non-numeric Health hemoglobin results) System [Entitic mass] by Automated count Erythrocyte mean 88.8 fl 80.0 - Normal (applies MCV [facility] corpuscular 100.0 to non-numeric Health volume [Entitic fl results) System volume] by Automated count Erythrocyte 12.8 % 11.5 - Normal (applies RDW [facility] distribution 14.5 % to non-numeric Health width [Entitic results) System volume] by Automated count Erythrocyte mean 32.3 33.0 - Below low normal MCHC [facility] corpuscular {gm/dL} 37.0 Health hemoglobin gm/dL System concentration [Mass/volume] by Automated count Platelet mean 9.9 fl 7.4 - Normal (applies MPV [facility] volume [Entitic 10.4 fl to non-numeric Health volume] in Blood results) System by Automated count Monocytes 0.8 Normal (applies Monocyte [facility] [#/volume] in {10\\S\\3_ to non-numeric Count Health Blood by Manual uL} results) System count Platelets 357 130 - Normal (applies Platelet [facility] [#/volume] in {10\\S\\3_ 400 to non-numeric Count Health Plasma by uL} 10\\S\\3 results) System Automated count uL Neutrophils 9.1 Normal (applies Absolute [facility] [#/volume] in {10\\S\\3_ to non-numeric Neutrophil Health Body fluid uL} results) Count System Eosinophils 0.2 Normal (applies Eosinophil [facility] [#/volume] in {10\\S\\3} to non-numeric Count Blood Health Blood results) System Lymphocyte 2.6 Normal (applies Lymphocyte [facility] Absolute {10\\S\\3_ to non-numeric Absolute Health uL} results) System Basophils 0.04 Normal (applies Basophil [facility] [#/volume] in {10\\S\\3_ to non-numeric Count Health Blood by uL} results) System Automated count Neutrophils/100 71.9 % Normal (applies Neutrophil % Anders florencio leukocytes in to non-numeric Health Blood by results) System Automated count Monocytes/100 6 % 6 - 9 % Below low normal Monocyte % [facility] leukocytes in Health Blood System Eosinophils/100 2 % 1 - 3 % Normal (applies Eosinophil % Anders florencio leukocytes in to non-numeric Health Unspecified results) System specimen Basophils/100 0 % 0 - 1 % Normal (applies Basophil % [facility] leukocytes in to non-numeric Health Unspecified results) System specimen by Manual count Lymphocytes 20 % 21 - 51 Below low normal Lymphocyte % [facility] [#/volume] in % Health Blood by System Automated count ID Date Data Source [id number] 01/10/2012 06:19:35 PM EDT [facility] Name Value Range Interpretation Description Data Sup porting Code Source(s) Document(s ) HCG NEGATIVE Negative Normal (applies HCG [facility] Qualitative mIU/ml to non-numeric Qualitative Health results) System Default Normal RangesNegative <5Indeterm inate 5-25(Please repeat in 2 days.)Positive >25 ID Date Data Source [id number] 01/10/2012 06:19:35 PM EDT [facility] Name Value Range Interpretation Description Data Sup porting Code Source(s) Document(s ) Potassium 3.9 mmol/L 3.6 - Normal (applies Potassium, [facility] [Mass/volume] 5.0 to non-numeric Serum Health in Serum or mmol/L results) System Plasma Sodium 139 mmol/L 137 - Normal (applies Sodium, [facility] [Moles/volume] 145 to non-numeric Serum Health in Serum or mmol/L results) System Plasma Chloride 103 mmol/L 98 - Normal (applies Chloride, [facility] [Moles/volume] 107 to non-numeric Serum Health in Serum or mmol/L results) System Plasma Carbon dioxide, 26.0 mmol/L 22.0 - Normal (applies CO2, Serum Anders florencio total 30.0 to non-numeric Health [Moles/volume] mmol/L results) System in Serum or Plasma Total Protein 8.2 mg/dl 6.3 - Normal (applies Total [facility] 8.2 to non-numeric Protein Health mg/dl results) System Glucose 113 mg/dL 65 - Above high Glucose, [facility] [Mass/volume] 105 normal Serum Health in Serum or mg/dL System Plasma Urea nitrogen 14 mg/dl 7 - 18 Normal (applies Blood Urea [facility] [Mass/volume] mg/dl to non-numeric Nitrogen, Health in Serum or results) Serum System Plasma Creatinine 0.70 mg/dl 0.70 - Normal (applies Creatinine, [facility] [Mass/volume] 1.20 to non-numeric Serum Health in Serum or mg/dl results) System Plasma Bilirubin.total 0.1 mg/dl 0.2 - Below low Bilirubin, [facility] [Mass/volume] 1.3 normal Serum Total Health in Serum or mg/dl System Plasma Alkaline 56 {IU/L} 38 - Normal (applies Alkaline [facility] phosphatase 126 to non-numeric Phosphatase, Health isoenzymes IU/L results) Serum System [Enzymatic activity/volume ] in Serum or Plasma by Heat stability Albumin 4.5 {gm/dl} 3.9 - Normal (applies Albumin, [facility] [Mass/volume] 5.0 to non-numeric Serum Health in Serum or gm/dl results) System Plasma Aspartate 19 {IU/L} 5 - 40 Normal (applies Aspartate [facility] aminotransferas IU/L to non-numeric Transaminase Health e [Enzymatic results) , Serum System activity/volume ] in Serum or Plasma by With P-5'-P Alanine 16 {IU/L} 7 - 56 Normal (applies Alanine [facility] aminotransferas IU/L to non-numeric Aminotransfe Health e [Enzymatic results) rase, Serum System activity/volume ] in Serum or Plasma I. Phosphorus 3.5 mg/dl 2.5 - Normal (applies I. [facility] 4.5 to non-numeric Phosphorus Health mg/dl results) System A/G Ratio 1.22 Normal (applies A/G Ratio [facility] to non-numeric Health results) System Calcium 9.7 mg/dl 8.4 - Normal (applies Calcium, [facility] [Mass/volume] 10.2 to non-numeric Total Serum Health in Serum or mg/dl results) System Plasma Urate 4.0 mg/dl 2.5 - Normal (applies Uric Acid, [facility] [Mass/volume] 7.5 to non-numeric Serum Health in Serum or mg/dl results) System Plasma Anion gap in 10.00 mmol/L 8.00 - Normal (applies Anion Gap [facility] Serum or Plasma 12.00 to non-numeric Health mmol/L results) System Glomerular Greater than Normal (applies GFR [facility] filtration 60 eGFR will to non-numeric Health rate/1.73 sq provide results) System M.predicted clinicians [Volume with a more Rate/Area] in accurate Serum or Plasma indicator of by renal function Creatinine-base then the serum d formula creatinine. (CKD-EPI) The eGFR is automatically calculated from an empiric formula (endorsed by the [employer]) which incorporates age, sex, and race.Clinician s may notice surprisingly low GFR's with serum creatinine valueswithin normal range- particularly in elderly women (with low muscle mass).In the hospital setting, the eGFR should add an element of safety in drug dosing, in assessing the risk of IV contrast administration , and in assessing vascular risk.The NKF staging system is as follows:Normal : eGFR >90 with no kidney markersStage 1: eGFR >90 with kidney markers*Stage 2: eGFR 60-89Stage 3: eGFR 30-59Stage 4: eGFR 15-29Stage 5: eGFR <15 (usually requiring dialysis)*Angelito ers include: Proteinuria, Hematuria, abnormal imaging-studie s, or other blood or urine test abnormalities ID Date Data Source [id number] 12/17/2011 06:21:00 AM EST [facility] Name Value Range Interpretation Description Data Sup porting Code Source(s) Document(s ) Ferritin 25.3 14.0 - Normal (applies Ferritin, [facility] [Mass/volum ng/ml 235.0 to non-numeric Serum Health System e] in Serum ng/ml results) or Plasma ID Date Data Source [id number] 12/17/2011 06:21:00 AM EST [facility] Name Value Range Interpretation Description Data Sup porting Code Source(s) Document(s ) Folate 11.50 >5.8 Normal (applies Folate, Serum [facility] [Mass/volu ng/ml ng/ml to non-numeric Health System me] in results) Serum or Plasma ID Date Data Source [id number] 12/09/2011 05:56:21 PM EST [facility] Name Value Range Interpretation Description Data Sup porting Code Source(s) Document(s ) Carbamazepine Less Normal (applies Carbamazepine [facility] Level, Serum than to non-numeric Level, Serum Health 2.20 results) System ID Date Data Source [id number] 12/09/2011 05:56:21 PM EST [facility] Name Value Range Interpretation Description Data Source(s ) Supporting Code Document(s ) Reagin Ab Non-react Normal (applies to RPR/VDRL. [facility] [Presence] camila non-numeric Health System in Serum by results) RPR ID Date Data Source [id number] 12/09/2011 05:56:21 PM EST [facility] Name Value Range Interpretation Description Data Sup porting Code Source(s) Document(s ) Erythrocytes 4.21 3.80 - Normal (applies RBC Count [facility] [#/volume] in {10\\S\\6_ 5.20 to non-numeric Health Blood by uL} 10\\S\\6 results) System Automated count uL Leukocytes 10.6 4.8 - Normal (applies WBC Count [facility] [#/volume] in {10\\S\\3_ 10.8 to non-numeric Health Unspecified uL} 10\\S\\3 results) System specimen by uL Automated count Erythrocyte mean 87.4 fl 80.0 - Normal (applies MCV [facility] corpuscular 100.0 to non-numeric Health volume [Entitic fl results) System volume] by Automated count Erythrocyte mean 28.3 pg 26.0 - Normal (applies MCH [facility] corpuscular 34.0 pg to non-numeric Health hemoglobin results) System [Entitic mass] by Automated count Hemoglobin 11.9 12.0 - Below low normal Hemoglobin, [facility] [Mass/volume] in {gm/dL} 16.0 Whole Blood Health Blood gm/dL System Hematocrit 36.8 % 36.0 - Normal (applies Hematocrit, [facility] [Volume 46.0 % to non-numeric Whole Blood Health Fraction] of results) System Blood Erythrocyte mean 32.3 33.0 - Below low normal MCHC [facility] corpuscular {gm/dL} 37.0 Health hemoglobin gm/dL System concentration [Mass/volume] by Automated count Erythrocyte 13.1 % 11.5 - Normal (applies RDW [facility] distribution 14.5 % to non-numeric Health width [Entitic results) System volume] by Automated count Platelets 355 130 - Normal (applies Platelet [facility] [#/volume] in {10\\S\\3_ 400 to non-numeric Count Health Plasma by uL} 10\\S\\3 results) System Automated count uL Platelet mean 10.0 fl 7.4 - Normal (applies MPV [facility] volume [Entitic 10.4 fl to non-numeric Health volume] in Blood results) System by Automated count ID Date Data Source [id number] 12/09/2011 05:56:21 PM EST [facility] Name Value Range Interpretation Description Data Sup porting Code Source(s) Document(s ) Sodium 138 mmol/L 137 - Normal (applies Sodium, [facility] [Moles/volume] 145 to non-numeric Serum [facility] in Serum or mmol/L results) System Plasma Potassium 4.3 mmol/L 3.6 - Normal (applies Potassium, [facility] [Mass/volume] 5.0 to non-numeric Serum Health in Serum or mmol/L results) System Plasma Chloride 106 mmol/L 98 - Normal (applies Chloride, [facility] [Moles/volume] 107 to non-numeric Serum [facility] in Serum or mmol/L results) System Plasma Total Protein 7.7 mg/dl 6.3 - Normal (applies Total [facility] 8.2 to non-numeric Protein [facility] mg/dl results) System Carbon dioxide, 23.0 mmol/L 22.0 - Normal (applies CO2, Serum Anders florencio total 30.0 to non-numeric Health [Moles/volume] mmol/L results) System in Serum or Plasma Urea nitrogen 15 mg/dl 7 - 18 Normal (applies Blood Urea [facility] [Mass/volume] mg/dl to non-numeric Nitrogen, Health in Serum or results) Serum System Plasma Glucose 109 mg/dL 65 - Above high Glucose, [facility] [Mass/volume] 105 normal Serum [facility] in Serum or mg/dL System Plasma Creatinine 0.80 mg/dl 0.70 - Normal (applies Creatinine, [facility] [Mass/volume] 1.20 to non-numeric Serum Health in Serum or mg/dl results) System Plasma Bilirubin.total 0.2 mg/dl 0.2 - Normal (applies Bilirubin, [facility] [Mass/volume] 1.3 to non-numeric Serum Total [facility] in Serum or mg/dl results) System Plasma Aspartate 19 {IU/L} 5 - 40 Normal (applies Aspartate [facility] aminotransferas IU/L to non-numeric Transaminase Health e [Enzymatic results) , Serum System activity/volume ] in Serum or Plasma by With P-5'-P Alkaline 47 {IU/L} 38 - Normal (applies Alkaline [facility] phosphatase 126 to non-numeric Phosphatase, Health isoenzymes IU/L results) Serum System [Enzymatic activity/volume ] in Serum or Plasma by Heat stability Alanine 19 {IU/L} 7 - 56 Normal (applies Alanine [facility] aminotransferas IU/L to non-numeric Aminotransfe Health e [Enzymatic results) rase, Serum System activity/volume ] in Serum or Plasma Albumin 4.1 {gm/dl} 3.9 - Normal (applies Albumin, [facility] [Mass/volume] 5.0 to non-numeric Serum Health in Serum or gm/dl results) System Plasma I. Phosphorus 3.2 mg/dl 2.5 - Normal (applies I. [facility] 4.5 to non-numeric Phosphorus Health mg/dl results) System Urate 4.6 mg/dl 2.5 - Normal (applies Uric Acid, [facility] [Mass/volume] 7.5 to non-numeric Serum Health in Serum or mg/dl results) System Plasma A/G Ratio 1.14 Normal (applies A/G Ratio [facility] to non-numeric Health results) System Calcium 9.2 mg/dl 8.4 - Normal (applies Calcium, [facility] [Mass/volume] 10.2 to non-numeric Total Serum Health in Serum or mg/dl results) System Plasma Anion gap in 9.00 mmol/L 8.00 - Normal (applies Anion Gap [facility] Serum or Plasma 12.00 to non-numeric Health mmol/L results) System Glomerular Greater than Normal (applies GFR [facility] filtration 60 eGFR will to non-numeric Health rate/1.73 sq provide results) System M.predicted clinicians [Volume with a more Rate/Area] in accurate Serum or Plasma indicator of by renal function Creatinine-base then the serum d formula creatinine. (CKD-EPI) The eGFR is automatically calculated from an empiric formula (endorsed by the [employer] Kid[employer]) which incorporates age, sex, and race.Clinician s may notice surprisingly low GFR's with serum creatinine values within normal range- particularly in elderly women (with low muscle mass).In the hospital setting, the eGFR should add an element of safety in drug dosing, in assessing the risk of IV contrast administration , and in assessing vascular risk.The NKF staging system is as follows:Normal : eGFR >90 with no kidney markersStage 1: eGFR >90 with kidney markers*Stage 2: eGFR 60-89Stage 3: eGFR 30-59Stage 4: eGFR 15-29Stage 5: eGFR <15 (usually requiring dialysis)*Angelito ers include: Proteinuria, Hematuria, abnormal imaging-studie s, or other blood or urine test abnormalities ID Date Data Source [id number] 12/09/2011 05:56:21 PM EST [facility] Name Value Range Interpretation Description Data Sup porting Code Source(s) Document(s ) Alcohol non Normal (applies Alcohol Ethyl, [facility] Ethyl, detected to non-numeric Blood Health System Blood None results) Detected Procedure Social History Code Duration Value Status Description Data Source(s ) Caffeine Use 05/10/2020 completed NEXTGEN (Matt nt Details 12:00:00 AM EDT [facility]) Smoking 05/10/2020 Unknown if completed Unknown if ever NEXTGEN ( [facility] 12:00:00 AM EDT ever smoked smoked [facility]) Alcohol Use 12/30/2019 completed wine 1 glass NEXTGEN (Sa int Details 12:00:00 AM EDT monthly [facility]) 12/30/2019 Ex-cigarette completed Ex-cigarette NEXTGEN (S aint 12:00:00 AM EDT smoker smoker [facility]) Smoking 07/31/2019 Daily Smoker completed Daily Smoker [facility] 02:31:00 PM EDT Medical C enter Smoking 07/31/2019 Daily Smoker completed Daily Smoker [facility] 02:20:00 PM EDT Medical C enter Smoking 07/31/2019 Daily Smoker completed Daily Smoker [facility] 02:12:00 PM EDT Medical C enter Smoking 06/23/2019 Denies Ever completed Denies Ever [facility] 06:18:00 PM EDT Smoked Smoked Medical C enter Smoking 06/23/2019 Denies Ever completed Denies Ever [facility] 06:10:00 PM EDT Smoked Smoked Medical C enter Smoking 06/23/2019 Denies Ever completed Denies Ever [facility] 06:01:00 PM EDT Smoked Smoked Medical C enter Smoking 06/04/2019 Denies Ever completed Denies Ever [facility] 11:30:00 AM EDT Smoked Smoked Medical C enter Smoking 06/04/2019 Denies Ever completed Denies Ever [facility] 10:29:00 AM EDT Smoked Smoked Medical C enter Smoking 06/04/2019 Denies Ever completed Denies Ever [facility] 10:17:00 AM EDT Smoked Smoked Medical C enter Smoking 10/06/2018 Denies Ever completed Denies Ever [facility] 05:33:00 PM EST Smoked Smoked Medical C enter Smoking 10/06/2018 Denies Ever completed Denies Ever [facility] 04:58:00 PM EST Smoked Smoked Medical C enter Smoking Unknown if completed Unknown if ever [facility] smoked smoked [facility] Vital Signs ID Date Data Source UNK Name Value Range Interpretation Description Data Sour ce(s) Code Oxygen 97 % 97 % NEXTGEN ([facility] saturation in [facility] Arterial blood [facility]) oximetry Body mass index 25.90 kg/m2 Overweight 25.90 kg/m2 [facility] ([facility] (BMI) [Ratio] [facility]) Respiratory 20 /min 20 /min NEXTGEN (Latrell t rate [facility]) Body 37.39 Korina 37.39 Korina NEXTGEN ([facility]) Heart rate 94 /min 94 /min [facility] ([facility]) Diastolic blood 72 mm[Hg] 72 mm[Hg] [facility] ( [facility]) Systolic blood 115 mm[Hg] 115 mm[Hg] [facility] (Health system) Body weight 75.024 kg 75.024 kg [facility] ([facility]) Body height 170.18 cm 170.18 cm [facility] ([facility]) Oxygen 97 % 97 % NEXTGEN ([facility] saturation in [facility]) oximetry Body mass index 25.53 kg/m2 Overweight 25.53 kg/m2 [facility] (BMI) [Ratio] [facility]) Respiratory 18 /min 18 /min [facility] ([facility]) Body 36.94 Korina 36.94 Korina [facility] ([facility]) Heart rate 93 /min 93 /min [facility] ([facility]) Diastolic blood 73 mm[Hg] 73 mm[Hg] [facility] ( [facility]) Systolic blood 118 mm[Hg] 118 mm[Hg] [facility] (Health system) Body weight 73.936 kg 73.936 kg [facility] ([facility]) Body height 170.18 cm 170.18 cm [facility] ([facility]) Oxygen 100 % 100 % [facility] saturation in [facility]) oximetry Body mass index 25.69 kg/m2 Overweight 25.69 kg/m2 NEXTGEN ([facility] (BMI) [Ratio] [facility]) Respiratory 20 /min 20 /min NEXTGEN ([facility]) Body 36.78 Korina 36.78 Korina [facility] ([facility]) Heart rate 97 /min 97 /min [facility] ([facility]) Diastolic blood 76 mm[Hg] 76 mm[Hg] [facility] ( [facility]) Systolic blood 114 mm[Hg] 114 mm[Hg] [facility] (Health system) Body weight 74.389 kg 74.389 kg [facility] ([facility]) Body height 170.18 cm 170.18 cm [facility] ([facility]) Oxygen 99 % 99 % NEXTGEN ([facility] saturation in [facility] Arterial blood [facility]) oximetry Respiratory 19 /min 19 /min [facility] ([facility]) Body 36.72 Korina 36.72 Korina [facility] ([facility]) Heart rate 68 /min 68 /min [facility] ([facility]) Diastolic blood 72 mm[Hg] 72 mm[Hg] [facility] ( [facility]) Systolic blood 108 mm[Hg] 108 mm[Hg] [facility] (Health system) Body height 170.18 cm 170.18 cm [facility] ([facility]) Oxygen 98 % 98 % [facility] saturation in [facility] Arterial blood [facility]) oximetry Body mass index 25.97 kg/m2 Overweight 25.97 kg/m2 [facility] ([facility] (BMI) [Ratio] [facility]) Respiratory 18 /min 18 /min NEXTGEN ([facility]) Body 36.83 Korina 36.83 Korina [facility] ([facility]) Heart rate 84 /min 84 /min [facility] ([facility]) Diastolic blood 74 mm[Hg] 74 mm[Hg] [facility] ( [facility]) Systolic blood 105 mm[Hg] 105 mm[Hg] [facility] (Health system) Body weight 75.206 kg 75.206 kg [facility] ([facility]) Body height 170.18 cm 170.18 cm [facility] ([facility]) Oxygen 97 % 97 % [facility] ([facility] saturation in [facility] Arterial [facility] Medical [facility]) oximetry Body mass index 25.37 kg/m2 Overweight 25.37 kg/m2 [facility] ([facility] (BMI) [Ratio] [facility]) Respiratory 18 /min 18 /min [facility] ([facility]) Body 36.94 Korina 36.94 Korina [facility] ([facility]) Heart rate 96 /min 96 /min [facility] ([facility]) Diastolic blood 81 mm[Hg] 81 mm[Hg] [facility] ( [facility]) Systolic blood 114 mm[Hg] 114 mm[Hg] [facility] (Health system) Body weight 73.482 kg 73.482 kg [facility] ([facility]) Body height 170.18 cm 170.18 cm [facility] ([facility]) Oxygen 100 % 100 % NEXTGEN ([facility] saturation in [facility] Arterial blood [facility]) oximetry Respiratory 19 /min 19 /min NEXTGEN ([facility]) Heart rate 78 /min 78 /min [facility] ([facility]) Diastolic blood 61 mm[Hg] 61 mm[Hg] NEXT[facility] ( [facility]) Systolic blood 107 mm[Hg] 107 mm[Hg] [facility] Oxygen 98 % 98 % [facility] ([facility] saturation in [facility] Arterial [facility]) oximetry Body mass index 25.53 kg/m2 Overweight 25.53 kg/m2 [facility] ([facility] (BMI) [Ratio] [facility]) Respiratory 20 /min 20 /min [facility] ([facility]) Body 37.22 Korina 37.22 Korina [facility] ([facility]) Heart rate 85 /min 85 /min [facility] ([facility]) Diastolic blood 81 mm[Hg] 81 mm[Hg] [facility] ( [facility]) Systolic blood 115 mm[Hg] 115 mm[Hg] [facility] (Health system) Body weight 73.936 kg 73.936 kg [facility] ([facility]) Body height 170.18 cm 170.18 cm [facility] ([facility]) Oxygen 99 % 99 % [facility] ([facility] saturation in [facility]) oximetry Body mass index 26.72 kg/m2 Overweight 26.72 kg/m2 [facility] ([facility] (BMI) [Ratio] [facility]) Respiratory 20 /min 20 /min [facility] ([facility]) Body 37.56 Korina 37.56 Korina [facility] ([facility]) Heart rate 109 /min 109 /min [facility] ([facility]) Diastolic blood 72 mm[Hg] 72 mm[Hg] [facility] ( [facility]) Systolic blood 122 mm[Hg] 122 mm[Hg] [facility] (Health system) Body weight 77.383 kg 77.383 kg [facility] ([facility]) Body height 170.18 cm 170.18 cm [facility] ([facility]) Oxygen 99 % 99 % NEXTGEN ([facility] saturation in [facility] Arterial blood [facility]) oximetry Body mass index 26.28 kg/m2 Overweight 26.28 kg/m2 [facility] ([facility] (BMI) [Ratio] [facility]) Respiratory 20 /min 20 /min [facility] ([facility]) Body 37.11 Korina 37.11 Korina NEXT[facility] ([facility]) Heart rate 91 /min 91 /min [facility] ([facility]) Diastolic blood 68 mm[Hg] 68 mm[Hg] [facility] ( [facility]) Systolic blood 120 mm[Hg] 120 mm[Hg] [facility] (Health system) Body weight 76.113 kg 76.113 kg [facility] ([facility]) Body height 170.18 cm 170.18 cm [facility] ([facility]) Oxygen 97 % 97 % NEXTGEN ([facility] saturation in [facility] Arterial blood [facility]) oximetry Body mass index 25.62 kg/m2 Overweight 25.62 kg/m2 [facility] ([facility] (BMI) [Ratio] [facility]) Respiratory 20 /min 20 /min [facility] ([facility]) Body 37.00 Korina 37.00 Korina [facility] ([facility]) Heart rate 87 /min 87 /min [facility] Diastolic blood 73 mm[Hg] 73 mm[Hg] [facility] ( [facility]) Systolic blood 101 mm[Hg] 101 mm[Hg] [facility] (Health system) Body weight 74.208 kg 74.208 kg [facility] ([facility]) Body height 170.18 cm 170.18 cm [facility] ([facility]) Oxygen 100 % 100 % [facility] ([facility] saturation in [facility] Arterial blood [facility]) oximetry Body mass index 25.06 kg/m2 Overweight 25.06 kg/m2 NEXT[facility] ([facility] (BMI) [Ratio] [facility]) Respiratory 20 /min 20 /min [facility]) Body 37.00 Korina 37.00 Korina [facility] ([facility]) Heart rate 86 /min 86 /min [facility] ([facility]) Diastolic blood 74 mm[Hg] 74 mm[Hg] [facility] ( [facility]) Systolic blood 113 mm[Hg] 113 mm[Hg] [facility] ([facility]) Body weight 72.575 kg 72.575 kg [facility] ([facility]) Body height 170.18 cm 170.18 cm [facility] ([facility]) Body [id number] Korina 36.706767 Korina [facility] Respiratory 17 /min 17 /min [facility] Oxygen 99 % 99 % [facility] saturation in Medical [address] [facility] Arterial blood by [facility] oximetry Heart rate 95 /min 95 /min [facility] Diastolic blood 77 mm[Hg] 77 mm[Hg] [facility] Systolic blood 132 mm[Hg] 132 mm[Hg] [facility] [facility] Body [id number] Korina [id number] Korina [facility] Cent[facility] r Respiratory 18 /min 18 /min [facility] Oxygen 100 % 100 % [facility] saturation in Medical Clar[facility] ter Arterial blood by Pulse oximetry Heart rate 100 /min 100 /min [facility] Diastolic blood 86 mm[Hg] 86 mm[Hg] [facility] Systolic blood 134 mm[Hg] 134 mm[Hg] [facility] Body 37.709721 Korina [id number] Korina [facility] r Respiratory 17 /min 17 /min [facility] Oxygen 100 % 100 % [facility] saturation in Medical [facility] Arterial blood by Pulse oximetry Heart rate 112 /min 112 /min [facility] Diastolic blood 93 mm[Hg] 93 mm[Hg] [facility] pressure [facility] Systolic blood 142 mm[Hg] 142 mm[Hg] [facility] Body 37.356996 Korina 37.868647 Korina [facility] temperature Medical Cente r Respiratory 17 /min 17 /min [facility] Oxygen 99 % 99 % [facility] saturation in Medical [facility] Arterial blood by Pulse oximetry Heart rate 78 /min 78 /min [facility] Diastolic blood 78 mm[Hg] 78 mm[Hg] [facility] pressure Medical Center Systolic blood 138 mm[Hg] 138 mm[Hg] [facility] pressure Medical Center Body 37.309296 Korina [id number] Korina [facility] temperature Medical Cente r Respiratory 18 /min 18 /min [facility] Oxygen 100 % 100 % [facility] saturation in Medical [facility] Arterial blood by Pulse oximetry Heart rate 82 /min 82 /min [facility] Diastolic blood 83 mm[Hg] 83 mm[Hg] [facility] Systolic blood 143 mm[Hg] 143 mm[Hg] [facility] pressure Medical Center Body 38.406540 Korina 38.638873 Korina [place] [facility] temperature Medical Cente r Respiratory 18 /min 18 /min [facility] Oxygen 99 % 99 % [facility] saturation in Medical [facility] Arterial blood by Pulse oximetry Heart rate 99 /min 99 /min [facility] Body height 170.464207 cm 170.670755 cm [facility] Diastolic blood 97 mm[Hg] 97 mm[Hg] [facility] pressure Medical Center Systolic blood 133 mm[Hg] 133 mm[Hg] [facility] Body 36.299375 Korina 36.543520 Korina [facility] Katharina [facility] temperature Medical Cente r Respiratory 16 /min 16 /min [facility] Oxygen 96 % 96 % [facility] saturation in Medical [facility] Arterial blood by Pulse oximetry Heart rate 74 /min 74 /min [facility] Diastolic blood 76 mm[Hg] 76 mm[Hg] [facility] pressure Medical Center Systolic blood 132 mm[Hg] 132 mm[Hg] [facility] pressure Medical Center Body 36.800847 Korina 36.252281 Korina [facility] Katharina [facility] temperature Medical Cente r Respiratory 16 /min 16 /min [facility] Oxygen 95 % 95 % [facility] saturation in Medical [facility] Arterial blood by Pulse oximetry Heart rate 74 /min 74 /min [facility] Diastolic blood 81 mm[Hg] 81 mm[Hg] [facility] pressure [facility] Center Systolic blood 136 mm[Hg] 136 mm[Hg] [facility] pressure Medical Center Body 37.196267 Korina 37.472514 Korina [facility] Katharina [facility] temperature Medical Cente r Respiratory 16 /min 16 /min [facility] Oxygen 98 % 98 % [facility] saturation in Medical [facility] ter Arterial blood by Pulse oximetry Heart rate 81 /min 81 /min [facility] Diastolic blood 76 mm[Hg] 76 mm[Hg] [facility] Systolic blood 138 mm[Hg] 138 mm[Hg] [facility] Body 36.789152 Korina 36.713077 Korina [facility] r Respiratory 16 /min 16 /min [facility] Heart rate 98 /min 98 /min [facility] Diastolic blood 85 mm[Hg] 85 mm[Hg] [facility] pressure Medical Center Systolic blood 135 mm[Hg] 135 mm[Hg] [facility] Body weight 73.956263 kg 73.227865 kg [facility] Body 36.562545 Korina 36.926881 Kor[facility] r Respiratory 18 /min 18 /min [facility] Oxygen 99 % 99 % [facility] saturation in Medical [facility] ter Arterial blood by Pulse oximetry Heart rate 108 /min 108 /min [facility] Diastolic blood 84 mm[Hg] 84 mm[Hg] [facility] Systolic blood 142 mm[Hg] 142 mm[Hg] [facility] Oxygen 100 % 100 % NEXTGEN ([facility] Arterial blood Medical by Pulse Center) oximetry Body mass index 26.31 kg/m2 Overweight 26.31 kg/m2 [facility] ([facility] (BMI) [Ratio] [facility]) Respiratory 16 /min 16 /min [facility] ([facility]) Body 36.67 Korina 36.67 Korina [facility] ([facility]) Heart rate 71 /min 71 /min [facility] ([facility]) Diastolic blood 69 mm[Hg] 69 mm[Hg] [facility] ( [facility]) Systolic blood 100 mm[Hg] 100 mm[Hg] [facility] ([facility]) Body weight 76.204 kg 76.204 kg [facility] ([facility]) Body height 170.18 cm 170.18 cm [facility] ([facility]) Diastolic blood 64 mmHg 64 mmHg [facility] Systolic blood 98 mmHg 98 mmHg [facility] Respiratory 18 bpm 18 bpm [facility] Heart rate 75 bpm 75 bpm [facility] Body [address] [facility] Diastolic blood 73 mmHg 73 mmHg [facility] Systolic blood 129 mmHg 129 mmHg [facility] Heart rate 109 bpm 109 bpm [facility] Diastolic blood 56 mmHg 56 mmHg [facility] Systolic blood 116 mmHg 116 mmHg [facility] Respiratory 18 bpm 18 bpm [facility] Heart rate 97 bpm 97 bpm [facility] Body 97.[address] [facility] Diastolic blood 86 mmHg 86 mmHg [facility] Systolic blood 118 mmHg 118 mmHg [facility] Respiratory 18 bpm 18 bpm [facility] Heart rate 94 bpm 94 bpm [facility] Body weight 157 lbs 157 lbs [facility] Diastolic blood 67 mmHg 67 mmHg [facility] Systolic blood 107 mmHg 107 mmHg [facility] Respiratory 18 bpm 18 bpm [facility] Heart rate 90 bpm 90 bpm [facility] Body 99.[address] [facility] Diastolic blood 74 mmHg 74 mmHg [facility] Systolic blood 123 mmHg 123 mmHg [facility] Respiratory 18 bpm 18 bpm [facility] Heart rate 111 bpm 111 bpm [facility] Diastolic blood 64 mmHg 64 mmHg [facility] Systolic blood 124 mmHg 124 mmHg [facility] Respiratory 18 bpm 18 bpm [facility] Heart rate 97 bpm 97 bpm [facility] Body 98.[address] [facility] Diastolic blood 68 mmHg 68 mmHg [facility] Systolic blood 101 mmHg 101 mmHg [facility] Heart rate 100 bpm 100 bpm [facility] Diastolic blood 70 mmHg 70 mmHg [facility] Systolic blood 102 mmHg 102 mmHg [facility] Respiratory 18 bpm 18 bpm [facility] Heart rate 91 bpm 91 bpm [facility] Body 99.[address] [facility] Diastolic blood 68 mmHg 68 mmHg [facility] Systolic blood 114 mmHg 114 mmHg [facility] Respiratory 18 bpm 18 bpm [facility] Heart rate 121 bpm 121 bpm [facility] Diastolic blood 70 mmHg 70 mmHg [facility] Systolic blood 132 mmHg 132 mmHg [facility] Respiratory 18 bpm 18 bpm [facility] Heart rate 103 bpm 103 bpm [facility] Body 97.[address] [facility] Body weight 150 lbs 150 lbs [facility] Diastolic blood 58 mmHg 58 mmHg [facility] Systolic blood 94 mmHg 94 mmHg [facility] Respiratory 18 bpm 18 bpm [facility] Heart rate 86 bpm 86 bpm [facility] Body 98.[address] [facility] Body weight 150 lbs 150 lbs [facility] Diastolic blood 61 mmHg 61 mmHg [facility] Systolic blood 91 mmHg 91 mmHg [facility] Respiratory 18 bpm 18 bpm [facility] Heart rate 85 bpm 85 bpm [facility] Body 98.[address] [facility] Respiratory 18 bpm 18 bpm [facility] Body 97.[address] [facility] Diastolic blood 79 mmHg 79 mmHg [facility] Systolic blood 127 mmHg 127 mmHg [facility] Heart rate 97 bpm 97 bpm [facility] Diastolic blood 76 mmHg 76 mmHg [facility] Systolic blood 110 mmHg 110 mmHg [facility] Respiratory 16 bpm 16 bpm [facility] Heart rate 75 bpm 75 bpm [facility] Body [address] [facility] Diastolic blood 72 mmHg 72 mmHg [facility] Systolic blood 113 mmHg 113 mmHg [facility] Respiratory 18 bpm 18 bpm [facility] Heart rate 97 bpm 97 bpm [facility] Diastolic blood 69 mmHg 69 mmHg [facility] Systolic blood 137 mmHg 137 mmHg [facility] Respiratory 18 bpm 18 bpm [facility] Heart rate 94 bpm 94 bpm [facility] Body 97.[address] [facility] Diastolic blood 77 mmHg 77 mmHg [facility] Systolic blood 147 mmHg 147 mmHg [facility] Respiratory 18 bpm 18 bpm [facility] Heart rate 106 bpm 106 bpm [facility] Diastolic blood 89 mmHg 89 mmHg [facility] Systolic blood 136 mmHg 136 mmHg [facility] Respiratory 18 bpm 18 bpm [facility] Heart rate 111 bpm 111 bpm [facility] Body 98.[address] [facility] Systolic blood 124 mmHg 124 mmHg [facility] Respiratory 18 bpm 18 bpm [facility] Heart rate 83 bpm 83 bpm [facility] Diastolic blood 76 mmHg 76 mmHg [facility] Body weight 147 lbs 147 lbs [facility] Diastolic blood 65 mmHg 65 mmHg [facility] Systolic blood 116 mmHg 116 mmHg [facility] Respiratory 18 bpm 18 bpm [facility] Heart rate 77 bpm 77 bpm [facility] Body 97.[address] [facility] Diastolic blood 60 mmHg 60 mmHg [facility] Systolic blood 113 mmHg 113 mmHg [facility] Respiratory 18 bpm 18 bpm [facility] Heart rate 18 bpm 18 bpm [facility] Diastolic blood 59 mmHg 59 mmHg [facility] Systolic blood 107 mmHg 107 mmHg [facility] Respiratory 18 bpm 18 bpm [facility] Heart rate 80 bpm 80 bpm [facility] Body 96.[address] [facility] Diastolic blood 66 mmHg 66 mmHg [facility] Systolic blood 103 mmHg 103 mmHg [facility] Respiratory 18 bpm 18 bpm [facility] Heart rate 96 bpm 96 bpm [facility] Diastolic blood 60 mmHg 60 mmHg [facility] Systolic blood 104 mmHg 104 mmHg [facility] Respiratory 18 bpm 18 bpm [facility] Heart rate 79 bpm 79 bpm [facility] Body 98.[address] [facility] Diastolic blood 77 mmHg 77 mmHg [facility] Systolic blood 108 mmHg 108 mmHg [facility] Heart rate 77 bpm 77 bpm [facility] Diastolic blood 79 mmHg 79 mmHg [facility] Systolic blood 114 mmHg 114 mmHg [facility] Respiratory 16 bpm 16 bpm [facility] Heart rate 79 bpm 79 bpm [facility] Body 97.[address] [facility] Diastolic blood 79 mmHg 79 mmHg [facility] Systolic blood 114 mmHg 114 mmHg [facility] Respiratory 16 bpm 16 bpm [facility] Heart rate 79 bpm 79 bpm [facility] Body 97.[address] [facility] Diastolic blood 73 mmHg 73 mmHg [facility] Systolic blood 111 mmHg 111 mmHg [facility] Heart rate 90 bpm 90 bpm [facility] Diastolic blood 90 mmHg 90 mmHg [facility] Systolic blood 99 mmHg 99 mmHg [facility] Respiratory 18 bpm 18 bpm [facility] Heart rate 96 bpm 96 bpm [facility] Body 96.[address] [facility] Diastolic blood 73 mmHg 73 mmHg [facility] Systolic blood 114 mmHg 114 mmHg [facility] Respiratory 18 bpm 18 bpm [facility] Heart rate 102 bpm 102 bpm [facility] Diastolic blood 65 mmHg 65 mmHg [facility] Systolic blood 110 mmHg 110 mmHg [facility] Respiratory 18 bpm 18 bpm [facility] Heart rate 95 bpm 95 bpm [facility] Body 97.[address] [facility] Diastolic blood 80 mmHg 80 mmHg [facility] Systolic blood 109 mmHg 109 mmHg [facility] Respiratory 18 bpm 18 bpm [facility] Heart rate 80 bpm 80 bpm [facility] Diastolic blood 72 mmHg 72 mmHg [facility] Systolic blood 102 mmHg 102 mmHg [facility] Respiratory 18 bpm 18 bpm [facility] Heart rate 90 bpm 90 bpm [facility] Body [facility].9 [facility] Di[facility] 63 mmHg 63 mmHg [facility] Systolic blood 100 mmHg 100 mmHg [facility] Respiratory 18 bpm 18 bpm [facility] Heart rate 94 bpm 94 bpm [facility] Diastolic blood 53 mmHg 53 mmHg [facility] Systolic blood 106 mmHg 106 mmHg [facility] Respiratory 18 bpm 18 bpm [facility] Heart rate 77 bpm 77 bpm [facility] Body 97.[address] [facility] Diastolic blood 69 mmHg 69 mmHg [facility] Systolic blood 105 mmHg 105 mmHg [facility] Heart rate 102 bpm 102 bpm [facility] Diastolic blood 56 mmHg 56 mmHg [facility] Systolic blood 99 mmHg 99 mmHg [facility] Respiratory 18 bpm 18 bpm [facility] Heart rate 90 bpm 90 bpm [facility] Body 98.[address] [facility] Body surface 1.7 m2 1.7 m2 [facility] area Derived Health Syste m from formula Body mass index 21.9 kg/m2 21.9 kg/m2 [facility] e (BMI) [Ratio] Health Syst em Body weight 63.5 kg 63.5 kg [facility] Measured Health System Body height 170.18 cm 170.18 cm [facility] Health System Body 97.8 [degF] 0 - 200 Normal (applies to 97.8 [degF] [facility] temperature non-numeric Health Syste m results) Body 36.5 Korina 0 - 99.9 Normal (applies to 36.5 Korina [facility] temperature non-numeric Health Syste m results) Diastolic blood 90 mm[Hg] 0 - 999 Above high normal 90 mm[Hg] [facility] Systolic blood 140 mm[Hg] 0 - 999 Above high normal 140 mm[Hg] [facility] Deprecated 100 % 0 - 999 Normal (applies to 100 % [place] Oxygen non-numeric Health System saturation in results) Capillary blood by Oximetry Respiratory 17 0 - 999 Normal (applies to 17 Anders florencio rate non-numeric Health System results) Heart rate 70 0 - 999 Normal (applies to 70 [place] non-numeric Health System results) Body weight 64.813348 kg 64.428641 kg [facility] Measured [facility] Body 36.527834 Korina 36.836811 Korina [place] [facility] temperature Medical Cente r Respiratory 17 /min 17 /min [facility] rate [facility] Center Oxygen 99 % 99 % [facility] saturation in Medical [facility] Arterial blood by Pulse oximetry Heart rate 71 /min 71 /min [facility] Body height 170.026076 cm 170.186597 cm [facility] Diastolic blood 70 mm[Hg] 70 mm[Hg] [facility] Systolic blood 129 mm[Hg] 129 mm[Hg] [facility] Body mass index 22.0 kg/m2 22.0 kg/m2 [facility] (BMI) [Ratio] [facility] Patient Treatment Plan of Care Planned Activity Planned Date Details Description Data Source (s) Omeprazole 40 MG Delayed 01/27/2020 NEX TGEN (Saint Release Oral Capsule 12:00:00 AM [facility]) azelastine 137 mcg (0.1 %) 01/03/2020 N EXTGEN (Saint nasal spray aerosol 12:00:00 AM [facility]) halobetasol propionate 10/21/2019 NEXTG EN (Saint 0.0005 MG/MG Topical 12:00:00 AM [facility] Ointment [place]) Fluconazole (Difluca 09/24/2019 [facility] 01:26:02 PM [facility] Robaxin (Methocarba 09/24/2019 [facility] 11:02:59 AM [facility] Ibuprofen (Motrin) O 09/24/2019 [facility] 11:02:39 AM [facility] Albuterol Sulfate MD 09/10/2019 [facility] 09:38:12 AM [facility] Ibuprofen (Motrin) O 09/10/2019 [facility] 09:38:00 AM [facility] Decadron (Dexametha 09/10/2019 [facility] 09:37:26 AM [facility] Ibuprofen (Motrin) O 08/20/2019 [facility] 08:10:34 AM [facility] multivitamin with iron 06/27/2018 NEXTG EN (Saint tablet 12:00:00 AM [facility]) Total Block Cover Up SPF 06/27/2018 NEX TGEN (Saint 60 lotion 12:00:00 AM [facility]) Betamethasone 0.0005 MG/MG 06/27/2018 N EXTGEN (Saint Topical Ointment 12:00:00 AM [facility]) Hydrocortisone 10 MG/ML 08/08/2016 [facility] Health Rectal Cream 07:21:30 PM EDT System Hydrocortisone 08/08/2016 [facility]th 07:16:58 PM EDT System Pramoxine hydrochloride 10 08/08/2016 [facility] MG/ML / Zinc Oxide 50 12:00:00 AM EDT Sys tem MG/ML Rectal Cream Miconazole Nitrate 200 [facility] 03:21:02 PM EDT Syste m Multivitamins 03/04/2016 [facility] Health 11:18:45 AM EDT System NITROFURANTOIN, 02/27/2016 [facility] MACROCRYSTALS 25 MG / 01:35:16 AM EDT Sys tem Nitrofurantoin, Monohydrate 75 MG Oral Capsule [Macrobid] ferrous sulfate 325 MG 02/05/2016 [facility] OtherInbox Oral Tablet 06:40:27 PM EDT System NITROFURANTOIN, 01/11/2016 [facility] MACROCRYSTALS 100 MG Oral 05:22:53 AM EDT System Capsule Ketoconazole 20 MG/ML 12/26/2015 [facility] Topical Cream 02:43:35 PM EDT System Diphenhydramine 09/20/2015 [facility] Hydrochloride 25 MG Oral 03:32:19 PM EST System Capsule Prednisone 20 MG Oral 08/02/2014 [facility] [employer] Tablet 09:05:02 AM EDT System Diphenhydramine 07/08/2014 [facility] Hydrochloride 50 MG Oral 05:26:37 PM EDT System Tablet Betamethasone 0.5 MG/ML 07/08/2014 [facility] OtherInbox Augmented Topical Cream 05:25:35 PM EDT S ystem mometasone furoate 1 MG/ML 06/04/2014 [facility] OtherInbox Topical Cream [Elocon] 10:20:52 AM EDT Sy stem Diphenhydramine 06/04/2014 [facility] Hydrochloride 25 MG Oral 10:20:20 AM EDT System Capsule [Benadryl] Prednisone 10 MG Oral 06/04/2014 [facility] [employer] [facility] Tablet 10:19:21 AM EDT System Bailey-3 350 mg-235 mg-90 NEX TGEN (Saint mg-597 mg capsule,[facility] release [place]) Linseed Oil 1000 MG Oral NEX TGEN ([facility]) folic acid 1 mg tablet NEXTG EN ([facility]) alpha lipoic acid (bulk) NEX TGEN ([facility]) Betamethasone 0.5 MG/ML / Sa [facility] Clotrimazole 10 MG/ML Center Topical Cream miconazole nitrate [facility] ([place] 7) 2 % (100 Center mg)-2 % (9 gram) comb pack,prefill appl, cream, Ordered By: Pilar Molina: 1 each per vagina daily Tobramycin 3 MG/ML [facility] Ophthalmic Solution Center Ciprofloxacin 250 MG Oral Sa [facility] Tablet Center olanzapine 5 MG Oral [facility] Tablet System olanzapine 10 MG Oral [facility] Tablet [Zyprexa] System insulin human, isophane [facility] 100 UNT/ML Injectable System Suspension Regular Insulin, Human 500 M [facility] UNT/ML Injectable Solution S ystem NITROFURANTOIN, [facility] MACROCRYSTALS 100 MG Oral Sy stem Capsule olanzapine 10 MG Oral [facility] Tablet [Zyprexa] System olanzapine 15 MG Oral [facility] Tablet [Zyprexa] System
== END 2020-07-11 17:55 | disposition home or self-care (01) ==
LOC: JERFT 14:37
DX: N30.00 Acute cystitis without hematuria (principal)
CPT/HCPCS: 36415; 81003; 84703; 87086; 87491; 87591; 99283-25

== ENCOUNTER 2020-07-14 17:59 | Emergency (ER) | payer OTHER ==
[2020-07-14 18:08] VITALS: BP 125/75; PULSE 100; TEMP 98.4; BMI 28.0
--- NOTE | 2020-07-14 18:39 | PDOC ---
History of Present Illness <Angie Chen - Last Filed: 07/14/20 18:42> - General History Source: Patient - History of Present Illness Timing/Duration: reports: other <Brittni MartellGamalielJu - Last Filed: 07/14/20 18:45> - General Chief Complaint: Pain Stated Complaint: PAIN Time Seen by Provider: 07/14/20 18:20 Past History <Angie Chen - Last Filed: 07/14/20 18:42> - Medical History COPD: No Psychiatric Problems: Yes - Reproductive History Is Patient Now?: No (#): 8 Para: 6 Spontaneous : 2 - Immunization History Immunization Up to Date: No - Psycho-Social/Smoking History Smoking History: Never smoked Have you smoked in the past 12 months: No - Substance Abuse Hx (Audit-C & DAST Scrn) How often the patient has a drink containing alcohol: Never Score: In Men: 4 or > Positive; In Women: 3 or > Positive: 0 Screen Result (Pos requires Nsg. Audit-10AR): Negative In the last yr the pt used illegal drug/Rx for NonMed reason: No Score: Yes response is considered Positive: 0 Screen Result (Positive result requires Nsg. DAST-10): Negative <KingstonBrittniJuanita - Last Filed: 07/14/20 18:45> - Medical History Allergies/Adverse Reactions: Allergies Allergy/AdvReac Type Severity Reaction Status Date / Time chlorpromazine Allergy Verified 07/14/20 18:03 [From Thorazine] haloperidol [From Haldol] Allergy Verified 07/14/20 18:03 olanzapine Allergy Verified 07/14/20 18:03 Home Medications: Ambulatory Orders Cephalexin Monohydrate [Keflex -] 500 mg PO BID 10 Days #20 capsule 07/11/20 Review of Systems - Review of Systems Constitutional: No: Chills, Fever, Unexplained wgt Loss ABD/GI: No: Constipated, Diarrhea, Nausea, Vomiting : No: Dysuria <JayshreeBrittniJuanita - Last Filed: 07/14/20 18:45> *Physical Exam - Vital Signs Last Vital Signs Temp Pulse Resp BP Pulse Ox 98.4 F 100 H 18 125/75 100 07/14/20 18:03 07/14/20 18:03 07/14/20 18:03 07/14/20 18:03 07/14/20 18:03 <Angie Chen - Last Filed: 07/14/20 18:42> - Vital Signs Last Vital Signs Temp Pulse Resp BP Pulse Ox 98.4 F 100 H 18 125/75 100 07/14/20 18:03 07/14/20 18:03 07/14/20 18:03 07/14/20 18:03 07/14/20 18:03 - Physical Exam General Appearance: Yes: Appropriately Dressed. No: Apparent Distress HEENT: positive: Normal Voice Neck: positive: Supple Respiratory/Chest: negative: Respiratory Distress Gastrointestinal/Abdominal: positive: Soft. negative: Tender Musculoskeletal: negative: CVA Tenderness Integumentary: positive: Dry, Warm Neurologic: positive: Fully Oriented, Alert, Normal Mood/Affect <Ellie Martell - Last Filed: 07/14/20 18:45> Medical Decision Making - Medical Decision Making The patient was seen and evaluated in conjunction with midlevel provider under my direct supervision, ancillary studies were reviewed. I agree with the plan as outlined withSASKIA Martell. HPI, workup/dispo as outlined. VS reviewed, wnl. anticipate discharge, pcp followup, return precautions 07/14/20 18:42 <Angie Chen - Last Filed: 07/14/20 18:42> - Medical Decision Making 07/14/20 18:35 40-year-old female, unknown psych history, currently follows up with a psychiatrist but denies being on meds and states "I don't want to get into that", here with what patient admits is chronic upper abdominal pain x several months, vague in nature, and unable to give much information regarding pain. Does state pain gradually worsening. No nausea, vomiting, change in bowel movement, dysuria, fever or chills. Reports having a GI appointment in 3 days. Patient was seen here several days ago requesting a test which was negative. Was started on Keflex for possible UTI though urine culture has since come back negative for growth. Patient well-appearing and stable with odd affect, appears disheveled with multiple bags containing personal belongings. Will do basic labs and anticipate discharging to follow-up with patient's GI next week as already scheduled 07/14/20 18:44 After labs were drawn by nurse, patient now states she does not want to wait for the results, that she will call the ER later. States she resides in a longterm and has to get back to the longterm before a certain time <Ellie Martell - Last Filed: 07/14/20 18:45> Discharge <Angie Chen - Last Filed: 07/14/20 18:42> - Discharge Information Problems reviewed: Yes <Ellie Martell - Last Filed: 07/14/20 18:45> - Discharge Information Clinical Impression/Diagnosis: Chronic abdominal pain Condition: Good Disposition: HOME - Patient Discharge Instructions Additional Instructions: You can call the ER later on for your lab results at [id number] Please follow-up with your GI doctor as already scheduled
[2020-07-14 19:00] LABS: BASO % 0.6 % (0-2.0); EOS % 1.4 % (0-4.5); HEMATOCRIT 36.3 % (32.4-45.2); HEMOGLOBIN 12.1 GM/dL (10.7-15.3); LYMPH % 19.9 % (8-40); MCH 29.2 pg (25.7-33.7); MCHC 33.2 g/dl (32.0-36.0); MEAN CELL VOLUME 87.8 fl (80-96); MEAN PLT VOLUME 7.6 fl (7.5-11.1); MONO % 9.3 % (3.8-10.2); NEUT % 68.8 % (42.8-82.8); PLATELET COUNT 324 K/MM3 (134-434); RBC 4.14 M/mm3 (3.60-5.2); RDW 12.5 % (11.6-15.6); WHITE BLOOD COUNT 12.2 K/mm3 (4.0-10.0)
[2020-07-14 19:32] LABS: ALBUMIN 3.7 g/dl (3.4-5.0); BILIRUBIN,TOTAL 0.4 mg/dL (0.2-1); BLOOD UREA NITROGEN 16.5 mg/dL (7-18); CALCIUM 8.5 mg/dL (8.5-10.1); CREATININE 0.8 mg/dL (0.55-1.3); POTASSIUM 4.1 mmol/L (3.5-5.1); TOT PROT 8.2 g/dl (6.4-8.2)
== END 2020-07-14 19:10 | disposition home or self-care (01) ==
LOC: JER 17:59
DX: R10.9 Unspecified abdominal pain (principal)
CPT/HCPCS: 36415; 80053; 83690; 85025; 99284-25

== ENCOUNTER 2020-08-24 11:57 | Emergency (ER) | payer OTHER ==
[2020-08-24 12:10] VITALS: BMI 28.6
[2020-08-24] MEDS ORDERED: SODIUM CHLORIDE 1,000 ML IV STA (13:07)
[2020-08-24] MEDS ORDERED: ONDANSETRON 4 MG/2 ML VIAL IVPUSH ONE (13:28)
[2020-08-24] MEDS ORDERED: ACETAMINOPHEN 1000 MG/100 ML VIAL (NON FORMULARY) IVPB ONE (13:28)
[2020-08-24] MEDS ORDERED: ACETAMINOPHEN INJECTION 100 ML IVPB ONE (13:38)
[2020-08-24 13:43] LABS: BASO % 0.6 % (0-2.0); EOS % 1.8 % (0-4.5); HEMATOCRIT 33.7 % (32.4-45.2); HEMOGLOBIN 11.2 GM/dL (10.7-15.3); LYMPH % 13.6 % (8-40); MCH 29.5 pg (25.7-33.7); MCHC 33.3 g/dl (32.0-36.0); MEAN CELL VOLUME 88.6 fl (80-96); MEAN PLT VOLUME 7.9 fl (7.5-11.1); MONO % 8.7 % (3.8-10.2); NEUT % 75.3 % (42.8-82.8); PLATELET COUNT 269 K/MM3 (134-434); RBC 3.81 M/mm3 (3.60-5.2); WHITE BLOOD COUNT 10.8 K/mm3 (4.0-10.0)
[2020-08-24 14:12] LABS: CHLORIDE 103 mmol/L (98-107); SODIUM 136 mmol/L (136-145)
[2020-08-24 14:14] LABS: CALCIUM 8.8 mg/dL (8.5-10.1); GLUCOSE,RANDOM 130 mg/dL (74-106)
[2020-08-24 14:15] LABS: ALBUMIN 3.7 g/dl (3.4-5.0); ANION GAP 7 MMOL/L (8-16); BLOOD UREA NITROGEN 15.7 mg/dL (7-18); CO2 27 mmol/L (21-32); LIPASE 156 U/L (73-393)
[2020-08-24 14:17] LABS: CREATININE 0.7 mg/dL (0.55-1.3)
[2020-08-24 14:18] LABS: SGOT/AST 24 U/L (15-37); SGPT/ALT 43 U/L (13-61)
[2020-08-24 14:19] LABS: BILIRUBIN,TOTAL 0.2 mg/dL (0.2-1); TOT PROT 8.1 g/dl (6.4-8.2)
[2020-08-24 14:20] LABS: ALK PHOS 74 U/L (45-117)
[2020-08-24 15:24] LABS: PH,URINE 5.5 (5.0-8.0); URINE APPEARANCE CLEAR; URINE BILIRUBIN NEGATIVE (NEGATIVE); URINE COLOR YELLOW; URINE GLUCOSE (UA) NEGATIVE (NEGATIVE); URINE KETONE NEGATIVE (NEGATIVE); URINE LEUK ESTERASE NEGATIVE (NEGATIVE); URINE NITRITE NEGATIVE (NEGATIVE); URINE PROTEIN NEGATIVE (NEGATIVE); URINE UROBILINOGEN 0.2 mg/dL (0.2-1.0)
[2020-08-24 15:26] LABS: HCG,QUALITATIVE URINE Negative
[2020-08-24 18:13] VITALS: BP 135/77; PULSE 80; TEMP 98.3
== END 2020-08-24 21:03 | disposition home or self-care (01) ==
LOC: JER 11:57
PROC: 3E0333Z Introduction of Anti-inflammatory into Peripheral Vein, Percutaneous Approach (ICD-10-PCS; principal; 2020-08-24)
PROC: 3E033GC Introduction of Other Therapeutic Substance into Peripheral Vein, Percutaneous Approach (ICD-10-PCS; 2020-08-24)
PROC: 3E0337Z Introduction of Electrolytic and Water Balance Substance into Peripheral Vein, Percutaneous Approach (ICD-10-PCS; 2020-08-24)
DX: F45.8 Other somatoform disorders (principal); R10.84 Generalized abdominal pain
CPT/HCPCS: 36415; 74177-TC; 80053; 81003; 83690; 84702; 84703; 85025; 87086; 99285-25; J0131; Q9967

== ENCOUNTER 2020-09-04 14:15 | Emergency (ER) | payer OTHER ==
[2020-09-04 14:25] VITALS: BP 105/64; PULSE 56; TEMP 97.8; BMI 28.0
== END 2020-09-04 18:50 | disposition short-term general hospital (02) ==
LOC: JERFT 14:15
DX: H16.032 Corneal ulcer with hypopyon, left eye (principal)
CPT/HCPCS: 70450-TC; 70480-TC; 99285-25